=== PATIENT | male | born 1960 | race Caucasian/White ===

== ENCOUNTER 2016-12-14 16:11 | Inpatient (IN) | payer MEDICAID ==
[~2016-12-14] VITALS: Ht 172.7 cm; Wt 95.0 kg
[~2016-12-14 16:11] MED LIST: ABILIFY; ANTIDEPRESSANT; BUPROPION; CITALOPRAM; HYDROCODONE-APA1 TAB PO; NEURONTIN 300300 MG PO; OXYCODONE HCL5 MG PO; TRIGLIDE160 MG PO; VOLTAREN100 MG PO; [UNRECOGNIZED DRUG - OTHER]
[2016-12-14 17:20] LABS: BASOPHILS 0.2 % (0-2); EOSINOPHILS 4.1 % (0-7); HEMOGLOBIN 13.9 g/dL (13.5-17.5); IMMATURE GRANULOCYTES 0.4 % (0-5); LYMPHOCYTES 25.3 % (15-50); MCH 29.7 pg (26.0-34.0); MCHC 33.1 g/dL (31.0-37.0); MCV 89.7 fL (80.0-100.0); MONOCYTES 6.2 % (2-11); NEUTROPHILS 63.8 % (40-80); RBC 4.68 10x6/uL (4.20-6.10); WBC 4.8 10x3/uL (4.8-10.8)
[2016-12-14 17:22] LABS: PLATELET COUNT 295 10x3/uL (130-400)
[2016-12-14 17:44] LABS: ALBUMIN 3.8 g/dL (3.4-5.0); ANION GAP 12.1 mmol/L (8-16); BILIRUBIN - TOTAL 0.24 mg/dL (0.2-1.3); CALCIUM 9.1 mg/dL (8.5-10.1); CARBON DIOXIDE 27.9 mmol/L (21.0-32.0); CREATININE - SERUM 1.3 mg/dL (0.6-1.3); PROTEIN - SERUM 7.7 g/dL (6.4-8.2)
[2016-12-14 19:40] LABS: APTT 28.6 SECONDS (22.8-39.4); INR 1.01 (0.85-1.17); PROTIME 13.1 SECONDS (11.6-15.0)
[2016-12-14 22:02] LABS: APPEARANCE CLEAR (CLEAR); BILIRUBIN NEGATIVE (NEGATIVE); COLOR YELLOW (YELLOW); GLUCOSE NEGATIVE (NEGATIVE); KETONE NEGATIVE (NEGATIVE); LEUKOCYTE ESTERASE NEGATIVE (NEGATIVE); NITRITE NEGATIVE (NEGATIVE); PROTEIN NEGATIVE (NEGATIVE); UROBILINOGEN NORMAL (NORMAL)
--- NOTE | 2016-12-14 23:20 | NUR ---
REC'D TO ROOM 2306 FROM ER VIA STRETCHER. SEE ADMISSION HISTORY AND ASSESSMENT. PT TRANSFERRED SELF TO BED. L FOREHEAD WITH SWELLING AND OLD BLOOD NOTED, L ELBOW SWELLING AND OLD BLOOD. NEURO WNL. HUGO CATH PATENT AND DRAINING CLEAR, YELLOW URINE. ALARMS ON AND C/L IN REACH.
[2016-12-14 23:30] VITALS: BP 122/84
[2016-12-14 23:45] VITALS: BP 122/84; Ht 172.7 cm; Wt 95.0 kg
--- NOTE | 2016-12-14 23:48 | NUR ---
ADMIN PRN MORPHINE. GIVEN SPRITE PER REQUEST. VSS. NEURO WNL. C/L IN REACH.
[2016-12-15] VITALS (9 sets, daily range): BP systolic 106–127; BP diastolic 70–84
--- NOTE | 2016-12-15 00:15 | NUR ---
PT WITH EYES CLOSED, AWAKENS EASILY. REPORTS ADEQUATE PAIN RELIEF. VSS. NO SIGN OF DISTRESS.
--- NOTE | 2016-12-15 02:25 | NUR ---
PT RESTING QUIETLY, NO CHANGE IN NEURO. COOPERATIVE, DENIES NEEDS.
--- NOTE | 2016-12-15 06:00 | NUR ---
L ELBOW PUNCTURE SITE, CLEANSED WITH NS, NON-ADHERENT GUAZE AND KERLEX DSG APPLIED. 3CM ROUND ABRASION TO BACK OF HEAD CLEANED. FOREHEAD LAC CLEANSED WITH NS. PT DENIES NEEDS. GIVEN COFFE PER REQUEST. C/L IN REACH.
--- NOTE | 2016-12-15 07:00 | NUR ---
ASSESSMENT PER FLOWSHEET.
--- NOTE | 2016-12-15 08:45 | NUR ---
DR QUILES HERE OK FOR DISCHARGE.
[2016-12-15] MEDS ORDERED: PERCOCET 10/3251 TA1 PO (09:11)
--- NOTE | 2016-12-15 10:00 | NUR ---
IV DCD WITH CATH INTACT. DC INSTRUCTION GIVEN. FOLLOW UP WITH DR QULIES December AT 10 AM ON THAT DAY OFFICE WILL MAKE APPT FOR CT OF HEAD. RX FOR PERCOCET GIVEN. LEFT WITH VIA PRIVATE AUTO.
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
== END 2016-12-15 13:02 | disposition home or self-care (01) | DRG 87 ==
LOC: D.ER 16:11 → D.ICU 21:16
PROVIDERS: Emergency Medicine; Physician Assistant Medical; ADMIT Family Medicine
PROC: 0T9B70Z Drainage of Bladder with Drainage Device, Via Natural or Artificial Opening (ICD-10-PCS; principal; 2016-12-14)
DX: S06.5X0A Traumatic subdural hemorrhage without loss of consciousness, initial encounter (principal); V29.3XXA Motorcycle rider (driver) (passenger) injured in unspecified nontraffic accident, initial encounter; S02.82XA Fracture of other specified skull and facial bones, left side, initial encounter for closed fracture; S02.40FA Zygomatic fracture, left side, initial encounter for closed fracture; F41.9 Anxiety disorder, unspecified; F32.9 Major depressive disorder, single episode, unspecified; B19.20 Unspecified viral hepatitis C without hepatic coma

== ENCOUNTER 2019-08-21 20:49 | Inpatient (IN) | payer MEDICARE ==
[~2019-08-21] VITALS: Ht 172.7 cm; Wt 84.5 kg
--- NOTE | 2019-08-21 20:30 | NUR ---
SUPINE IN BED, ALERT, BUT CONFUSED-PLEASANTLY. ORIENTED TO SELF AND KNOWS SHE'S AT THE HOSPITAL AND HAS FALLEN A LOT RECENTLY. DENIES PAIN/DISCOMFORT. MULTIPLE BRUISES ON ARMS, LEGS, AND LARGE DARKENED BRUISE TO RIGHT EAR. BLOOD PRESSURE IS ELEVATED. JOSE MANUEL PAGED, WILL MONITOR CLOSELY.
[~2019-08-21 20:49] MED LIST changes: +PERCOCET 10/3251 TA1 PO
[2019-08-21 21:20] VITALS: BP 128/89
[2019-08-21 21:50] LABS: APTT 33.5 SECONDS (22.8-39.4); INR 1.09 (0.85-1.17); PROTIME 13.6 SECONDS (11.6-15.0)
[2019-08-21 21:53] LABS: BASOPHILS 0.1 % (0-2); EOSINOPHILS 1.7 % (0-7); HEMOGLOBIN 15.7 g/dL (13.5-17.5); IMMATURE GRANULOCYTES 0.1 % (0-5); LYMPHOCYTES 14.2 % (15-50); MCH 29.9 pg (26.0-34.0); MCHC 34.1 g/dL (31.0-37.0); MCV 87.6 fL (80.0-100.0); MEAN PLATELET VOLUME 10.4 fL (7.4-10.4); MONOCYTES 7.8 % (2-11); NEUTROPHILS 76.1 % (40-80); PLATELET COUNT 329 10x3/uL (130-400); RBC 5.25 10x6/uL (4.20-6.10); RDW 12.9 % (11.5-14.5); WBC 7.8 10x3/uL (4.8-10.8)
[2019-08-21] MEDS ORDERED: ELAVIL75 MG PO (21:55)
[2019-08-21] MEDS ORDERED: ABILIFY10 MG PO (21:55)
[2019-08-21] MEDS ORDERED: PEPCID AC20 MG PO (21:56)
[2019-08-21] MEDS ORDERED: MOBIC7.5 MG PO (21:57)
[2019-08-21] MEDS ORDERED: NEURONTIN600 MG PO (21:57)
[2019-08-21] MEDS ORDERED: TRAZODONE HCL150 MG PO (21:58)
[2019-08-21] MEDS ORDERED: CYCLOBENZAPRINE10 MG PO (21:59)
[2019-08-21] MEDS ORDERED: BUPROPION HCL100 MG PO (21:59)
[2019-08-21 22:00] LABS: CALC OSMOLALITY 272 mosm/kg (275-300); CARBON DIOXIDE 26.4 mmol/L (21.0-32.0); CHLORIDE - SERUM 98 mmol/L (98-107); CREATININE - SERUM 1.1 mg/dL (0.6-1.3); GLUCOSE 104 mg/dL (74-106); SODIUM 136 mmol/L (136-145); UREA NITROGEN 15 mg/dL (7-18); eGFR NON AFRICAN AMERICAN 72 mL/min (90-120)
[2019-08-21] MEDS ORDERED: HYDROCODON-ACE1 EA10 PO (22:00)
[2019-08-21 22:30] VITALS: BP 135/84
[2019-08-21 22:30] LABS: ALKALINE PHOSPHATASE 67 U/L (46-116); ALT (SGPT) 38 U/L (10-68); BILIRUBIN - TOTAL 0.71 mg/dL (0.2-1.3); CKMB 0.3 U/L (0.0-3.6); CREATINE KINASE 57 UL (21-232); PRO BNP 33 pg/mL (0-125); PROTEIN - SERUM 8.8 g/dL (6.4-8.2); TROPONIN-I < 0.017 ng/mL (0.000-0.060)
[2019-08-21 22:31] LABS: LIPASE 4279 U/L (73-393)
[2019-08-21 23:43] VITALS: BP 120/66
[2019-08-22] VITALS (7 sets, daily range): BP systolic 105–153; BP diastolic 60–92; BMI 30.4
--- NOTE | 2019-08-22 01:15 | NUR ---
A&O X 4, AMBULATORY AD PARAMJIT. REPORTS PAIN IS BEGINNING TO INCREASE, BUT STATES HE IS MUCH BETTER THAN HE WAS EARLIER TONIGHT. TOLERATING JELLO AND BROTH, NO N/V. DENIES NEEDS AT THIS TIME, WILL CONTINUE TO MONITOR.
--- NOTE | 2019-08-22 08:00 | NUR ---
PATIENT ASLEEP ON RIGHT SIDE. CL IN REACH. NO NEEDS AT THIS TIME. WCTM
[2019-08-22 09:12] LABS: BASOPHILS 0.3 % (0-2); EOSINOPHILS 2.5 % (0-7); HEMATOCRIT 42.8 % (42.0-54.0); HEMOGLOBIN 14.8 g/dL (13.5-17.5); IMMATURE GRANULOCYTES 0.3 % (0-5); LYMPHOCYTES 10.8 % (15-50); MCH 30.3 pg (26.0-34.0); MCHC 34.6 g/dL (31.0-37.0); MCV 87.7 fL (80.0-100.0); MEAN PLATELET VOLUME 10.5 fL (7.4-10.4); MONOCYTES 9.5 % (2-11); NEUTROPHILS 76.6 % (40-80); PLATELET COUNT 297 10x3/uL (130-400); RBC 4.88 10x6/uL (4.20-6.10); WBC 7.5 10x3/uL (4.8-10.8)
[2019-08-22 09:26] LABS: ALBUMIN 3.2 g/dL (3.4-5.0); ALKALINE PHOSPHATASE 68 U/L (46-116); BILIRUBIN - TOTAL 0.65 mg/dL (0.2-1.3); CALC OSMOLALITY 275 mosm/kg (275-300); CALCIUM 9.1 mg/dL (8.5-10.1); CARBON DIOXIDE 24.6 mmol/L (21.0-32.0); CHLORIDE - SERUM 100 mmol/L (98-107); CREATININE - SERUM 0.9 mg/dL (0.6-1.3); GLUCOSE 108 mg/dL (74-106); POTASSIUM - SERUM 3.9 mmol/L (3.5-5.1); PROTEIN - SERUM 7.8 g/dL (6.4-8.2); SODIUM 137 mmol/L (136-145); UREA NITROGEN 15 mg/dL (7-18); eGFR NON AFRICAN AMERICAN > 90 mL/min (90-120)
[2019-08-22 09:48] LABS: ALT (SGPT) 51 U/L (10-68); LIPASE 4736 U/L (73-393)
[2019-08-22 09:54] LABS: AMYLASE - SERUM 309 U/L (25-115)
[2019-08-22 12:15] LABS: CHOL - HDL RATIO 3.3 ratio (2.3-4.9); LDL-HDL RATIO 1.9 ratio (1.5-3.5)
--- NOTE | 2019-08-22 15:33 | NUR ---
DEMI SAUCEDA [phone] SISTER. RN WOULD LIKE US TO CALL YOU IF WE SCHEDULE ANY TESTS AND WHEN SO SHE CAN BE AROUND.
[2019-08-23] VITALS (7 sets, daily range): BP systolic 117–137; BP diastolic 67–87; Ht 172.7 cm; Wt 84.5 kg
[2019-08-23 05:01] LABS: BASOPHILS 0.2 % (0-2); EOSINOPHILS 2.9 % (0-7); HEMATOCRIT 42.2 % (42.0-54.0); HEMOGLOBIN 14.5 g/dL (13.5-17.5); IMMATURE GRANULOCYTES 0.2 % (0-5); LYMPHOCYTES 14.3 % (15-50); MCH 30.1 pg (26.0-34.0); MCHC 34.4 g/dL (31.0-37.0); MCV 87.7 fL (80.0-100.0); MEAN PLATELET VOLUME 10.7 fL (7.4-10.4); MONOCYTES 8.5 % (2-11); NEUTROPHILS 73.9 % (40-80); PLATELET COUNT 309 10x3/uL (130-400); RBC 4.81 10x6/uL (4.20-6.10); RDW 12.8 % (11.5-14.5); WBC 6.5 10x3/uL (4.8-10.8)
[2019-08-23 05:20] LABS: CALC OSMOLALITY 274 mosm/kg (275-300); CALCIUM 9.1 mg/dL (8.5-10.1); CARBON DIOXIDE 25.6 mmol/L (21.0-32.0); CHLORIDE - SERUM 100 mmol/L (98-107); GLUCOSE 99 mg/dL (74-106); MAGNESIUM - SERUM 1.9 mg/dL (1.8-2.4); PHOSPHOROUS 3.1 mg/dL (2.5-4.9); POTASSIUM - SERUM 3.8 mmol/L (3.5-5.1); SODIUM 137 mmol/L (136-145); UREA NITROGEN 15 mg/dL (7-18); eGFR NON AFRICAN AMERICAN 81 mL/min (90-120)
--- NOTE | 2019-08-23 07:44 | NUR ---
AWAKE AND ALERT. ORIENTED X3. NO C/O AT THIS TIME. LUNGS ARE CLEAR BILATERALLY, NO COUGH NOTED. SKIN IS INTACT WITHOUT REDNESS. IV TO RIGHT AC IS PATENT WTIHOUT REDNESS AT INSERTION SITE. DENIES NEEDS.
--- NOTE | 2019-08-23 09:20 | NUR ---
REQUESTED AND GIVEN ONE HYDROCODONE PO FOR C/O UPPER ABDOMINAL PAIN LEVEL 8. WILL MONITOR.
[2019-08-23 10:53] LABS: APPEARANCE CLEAR (CLEAR); BILIRUBIN NEGATIVE (NEGATIVE); COLOR YELLOW (YELLOW); GLUCOSE NEGATIVE (NEGATIVE); KETONE NEGATIVE (NEGATIVE); NITRITE NEGATIVE (NEGATIVE); PROTEIN NEGATIVE (NEGATIVE)
[2019-08-23 11:21] LABS: UDS - AMPHET NEGATIVE QUAL (NEGATIVE); UDS - BARB NEGATIVE QUAL (NEGATIVE); UDS - BENZO NEGATIVE QUAL (NEGATIVE); UDS - COCAINE NEGATIVE QUAL (NEGATIVE); UDS - OPIATE POSITIVE QUAL (NEGATIVE); UDS - PCP NEGATIVE QUAL (NEGATIVE); UDS - THC POSITIVE QUAL (NEGATIVE)
--- NOTE | 2019-08-23 16:04 | NUR ---
IV TO RIGHT AC LEAKING. D/C WITH CATHETER INTACT. RESITED TO LEFT AC AFTER 2 ATTEMPTS WITH 20 GA. TOLERATED WELL. DENIES NEEDS.
--- NOTE | 2019-08-23 16:23 | NUR ---
REQUESTED AND GIVNE ONE HYDROCODONE PO FOR C/O UPPER ABDOMINAL PAIN LEVEL 8. WILL MONITOR.
--- NOTE | 2019-08-23 18:18 | NUR ---
ATE MOST OF SUPPER. DENIES NEEDS. NO CHANGES NOTED.
[2019-08-24] VITALS (9 sets, daily range): BP systolic 104–120; BP diastolic 60–75
--- NOTE | 2019-08-24 03:02 | NUR ---
ALERT AND ORIENTED ABLE TO VOICE NEEDS AND WANTS TO STAFF. ON ROOM AIR. IV TO LEFT AC. WITH NS AT 100 ML/HR. NPO AT MIDNIGHT FOR COMPUTED TOMOGRAPHY GUIDED LIVER BIOPSY IN AM. RESTING IN BED WITH NO NEEDS ,
[2019-08-24 06:19] LABS: BASOPHILS 0.2 % (0-2); EOSINOPHILS 3.8 % (0-7); HEMATOCRIT 38.3 % (42.0-54.0); HEMOGLOBIN 13.1 g/dL (13.5-17.5); IMMATURE GRANULOCYTES 0.2 % (0-5); LYMPHOCYTES 16.1 % (15-50); MCH 29.6 pg (26.0-34.0); MCHC 34.2 g/dL (31.0-37.0); MCV 86.5 fL (80.0-100.0); MEAN PLATELET VOLUME 10.6 fL (7.4-10.4); MONOCYTES 7.5 % (2-11); NEUTROPHILS 72.2 % (40-80); PLATELET COUNT 273 10x3/uL (130-400); RBC 4.43 10x6/uL (4.20-6.10); RDW 12.6 % (11.5-14.5); WBC 5.6 10x3/uL (4.8-10.8)
[2019-08-24 06:36] LABS: APTT 37.5 SECONDS (22.8-39.4); INR 1.2 (0.85-1.17); PROTIME 14.7 SECONDS (11.6-15.0)
[2019-08-24 07:19] LABS: CALC OSMOLALITY 270 mosm/kg (275-300); CALCIUM 8.6 mg/dL (8.5-10.1); CARBON DIOXIDE 23.1 mmol/L (21.0-32.0); CHLORIDE - SERUM 101 mmol/L (98-107); CREATININE - SERUM 0.8 mg/dL (0.6-1.3); GLUCOSE 101 mg/dL (74-106); MAGNESIUM - SERUM 1.7 mg/dL (1.8-2.4); PHOSPHOROUS 2.8 mg/dL (2.5-4.9); POTASSIUM - SERUM 3.7 mmol/L (3.5-5.1); SODIUM 136 mmol/L (136-145); eGFR NON AFRICAN AMERICAN > 90 mL/min (90-120)
[2019-08-24 07:24] LABS: AMYLASE - SERUM 190 U/L (25-115); UREA NITROGEN 11 mg/dL (7-18)
--- NOTE | 2019-08-24 07:30 | NUR ---
AWAKE AND ALERT. ORIENTED X3. NO C/O AT THIS TIME. LUNGS ARE CLEAR BILATERALLLY,NO COUGH NOTED. SKIN IS INTACT WTIHOUT REDNESS. IV TO LEFT AC IS PATENT WITHOUT REDNESS. DENIES NEEDS.
[2019-08-24 07:34] LABS: LIPASE 2977 U/L (73-393)
--- NOTE | 2019-08-24 08:10 | NUR ---
OFF UNIT VIA BED FOR PROCEDURE.
--- NOTE | 2019-08-24 09:23 | NUR ---
RETURNED FROM PROCEDURE. A/O X3. NO C/O AT THIS TIME. DENIES NEEDS.
--- NOTE | 2019-08-24 18:32 | NUR ---
REFUSED CL DIET. GIVEN STRAWBERRY JELLO AND HE IS TRYING TO EAT SOME. DENIES NEEDS. NO CHANGES NOTED.
--- NOTE | 2019-08-24 20:02 | NUR ---
ALERT AND ORENTED X4 ABLE TO VOICE NEEDS AND WANTS TO STAFF. NO S/S OF DISTRESS. CALL LIGHT AND WATER IN REACH.
[2019-08-25 04:00] VITALS: BP 116/68
[2019-08-25 04:45] LABS: BASOPHILS 0.4 % (0-2); EOSINOPHILS 3.3 % (0-7); HEMATOCRIT 37.8 % (42.0-54.0); HEMOGLOBIN 13.3 g/dL (13.5-17.5); LYMPHOCYTES 14.9 % (15-50); MCH 30.2 pg (26.0-34.0); MCHC 35.2 g/dL (31.0-37.0); MCV 85.9 fL (80.0-100.0); MEAN PLATELET VOLUME 10.3 fL (7.4-10.4); MONOCYTES 8.4 % (2-11); PLATELET COUNT 298 10x3/uL (130-400); RDW 12.5 % (11.5-14.5); WBC 5.4 10x3/uL (4.8-10.8)
[2019-08-25 04:55] LABS: AMYLASE - SERUM 158 U/L (25-115); CALC OSMOLALITY 274 mosm/kg (275-300); CALCIUM 8.6 mg/dL (8.5-10.1); CARBON DIOXIDE 25.7 mmol/L (21.0-32.0); CHLORIDE - SERUM 102 mmol/L (98-107); CREATININE - SERUM 0.8 mg/dL (0.6-1.3); GLUCOSE 103 mg/dL (74-106); MAGNESIUM - SERUM 1.9 mg/dL (1.8-2.4); POTASSIUM - SERUM 3.7 mmol/L (3.5-5.1); SODIUM 138 mmol/L (136-145); UREA NITROGEN 9 mg/dL (7-18); eGFR NON AFRICAN AMERICAN > 90 mL/min (90-120)
[2019-08-25 05:16] LABS: LIPASE 2231 U/L (73-393)
--- NOTE | 2019-08-25 08:40 | NUR ---
RESTING IN BED, NO DISTESS NOTED, ALERT AND O, DRESSING INTACT TO RIGHT SIDE, IV INFUSING, CONT TO MONITOR
[2019-08-25 08:49] VITALS: BP 113/75
--- NOTE | 2019-08-25 09:05 | NUR ---
NUTRITION F/U PT REMAINS ON CLEAR LIQUID DIET. PT MAY BENEFIT FROM PROCALAMINE PPN IF UNABLE TO ADVANCE DIET IN 24 [address] FOLLOWING
[2019-08-25 12:49] VITALS: BP 121/73
[2019-08-25 14:09] LABS: ALPHA FETOPROTEIN -(TUMOR MRK) 1.6 ng/mL (0.0-8.3); CEA 5.4 ng/mL (0.0-4.7)
--- NOTE | 2019-08-25 14:27 | MORECARE ---
CASE MANAGEMENT DISCHARGE SUMMARY PATIENT: ANNETTE RON UNIT: [id number] ADM DATE: 08/21/19 AGE: 59 : 56 SEX: M ROOM/BED: D.2204 AUTHOR: CRISTOFERDOC PHYSICIAN: REFERRING PHYSICIAN: ARSALAN BIRMINGHAM MD DATE OF SERVICE: 08/25/19 Discharge Plan Patient Name: ANNETTE RON Facility: [facility]:[place] : 1960 Planned Disposition: Home Anticipated Discharge Date: Discharge Date: Expected LOS: Initial Reviewer: [email or web address] Initial Review Date: 08/25/2019 Generated: 08/25/19 3:26 pm Comments DCP- Discharge Planning Updated by [email or web address]: Cintia Woodruff on 08/25/19 1:[address] Patient Name: ANNETTE RON Admission Status: ER Accout number: [id number] Admission Date: 08-21-2019 : 1960 Admission Diagnosis: Attending: ARSALAN BIRMINGHAM Current LOS: 4 Anticipated DC Date: Planned Disposition: Home Primary Insurance: [facility] [employer] SOLUTIONS Discharge Planning Comments: CM met with patient to complete initial dc planning assessment. CM educated patient on the CM role and verbal consent given by patient to complete assessment. Patient lives at home with his and grown child. At discharge patient plans to return and feels this is a safe discharge. CM discussed availability of home health, rehab services, and medical equipment. Patient denied known discharge needs at this time. CM will continue to follow and will assist as needed with dc plans/needs. Termite Control Service Representative: Cintia Woodruff DCPIA - Discharge Planning Initial Assessment Updated by [email or web address]: Cintia Woodruff on 08/25/19 2:24 pm * Is the patient Alert and Oriented? Yes * How many steps to enter\exit or inside your home? 5/0 * PCP Dr. Vazquez * Pharmacy [facility] * Preadmission Environment Home with Family * ADLs Independent * Equipment Cane * List name and contact numbers for known caregivers / representatives who currently or will assist patient after discharge: Carola Ron - - [phone] * Verbal permission to speak to the caregivers and representatives has been obtained from the patient. Yes * Community resources currently utilized None * Additional services required to return to the preadmission environment? No * Can the patient safely return to the preadmission environment? Yes * Has this patient been hospitalized within the prior 30 days at any hospital? No Patient Name: ANNETTE RON Page [id number] at 1427 All edits/amendments must be made on the electronic document DICTATION DATE: 08/25/191425 A/C TECH: VALDEZ 08/25/191425 RPT#: [id number] DC DATE: STATUS: ADM IN [facility] [address] [place] [address] END OF REPORT
[2019-08-25 17:50] VITALS: BP 125/71
--- NOTE | 2019-08-25 18:23 | NUR ---
PT REMAINS ON CL LIQ DIET, STATES THAT HE DOESNT LIKE THE BROTH, PRACTITIONER AWARE, STOOL SOFTENER ORDERED TO START TONIGHT
[2019-08-25 20:00] VITALS: BP 107/86
--- NOTE | 2019-08-26 03:08 | NUR ---
I have reviewed this patient and I concur with the Shift Assessment completed by the Licensed Practical Nurse today this shift.
[2019-08-26 04:00] VITALS: BP 124/68
[2019-08-26 05:08] LABS: BASOPHILS 0.2 % (0-2); EOSINOPHILS 3.7 % (0-7); HEMATOCRIT 38.9 % (42.0-54.0); HEMOGLOBIN 13.3 g/dL (13.5-17.5); IMMATURE GRANULOCYTES 0.2 % (0-5); LYMPHOCYTES 15.3 % (15-50); MCH 29.6 pg (26.0-34.0); MCHC 34.2 g/dL (31.0-37.0); MCV 86.4 fL (80.0-100.0); MEAN PLATELET VOLUME 9.8 fL (7.4-10.4); MONOCYTES 9.2 % (2-11); NEUTROPHILS 71.4 % (40-80); PLATELET COUNT 321 10x3/uL (130-400); RDW 12.4 % (11.5-14.5); WBC 5.9 10x3/uL (4.8-10.8)
[2019-08-26 05:31] LABS: AMYLASE - SERUM 147 U/L (25-115); CALC OSMOLALITY 273 mosm/kg (275-300); CARBON DIOXIDE 25.5 mmol/L (21.0-32.0); CHLORIDE - SERUM 101 mmol/L (98-107); CREATININE - SERUM 0.8 mg/dL (0.6-1.3); GLUCOSE 119 mg/dL (74-106); PHOSPHOROUS 3.5 mg/dL (2.5-4.9); POTASSIUM - SERUM 3.7 mmol/L (3.5-5.1); SODIUM 137 mmol/L (136-145); UREA NITROGEN 11 mg/dL (7-18); eGFR NON AFRICAN AMERICAN > 90 mL/min (90-120)
[2019-08-26 05:32] LABS: LIPASE 2240 U/L (73-393)
[2019-08-26 10:12] VITALS: BP 124/72
--- NOTE | 2019-08-26 10:59 | NUR ---
RESTING IN BED, NO DISTRESS NOTED, PROCAL INFUSING AT 75, UP IN ROOM, TIRED OF CLEAR LIQ TRAY
[2019-08-26 13:40] VITALS: BP 133/89
[2019-08-26 16:45] VITALS: BP 107/83
[2019-08-26 20:00] VITALS: BP 122/82
[2019-08-26 23:30] VITALS: BP 106/58
[2019-08-27 04:00] VITALS: BP 118/78
[2019-08-27 05:24] LABS: BASOPHILS 0.4 % (0-2); EOSINOPHILS 5.3 % (0-7); HEMATOCRIT 40.3 % (42.0-54.0); HEMOGLOBIN 13.8 g/dL (13.5-17.5); IMMATURE GRANULOCYTES 0.2 % (0-5); LYMPHOCYTES 12.8 % (15-50); MCH 29.6 pg (26.0-34.0); MCHC 34.2 g/dL (31.0-37.0); MCV 86.3 fL (80.0-100.0); MEAN PLATELET VOLUME 10.2 fL (7.4-10.4); MONOCYTES 7.3 % (2-11); PLATELET COUNT 318 10x3/uL (130-400); RBC 4.67 10x6/uL (4.20-6.10); RDW 12.5 % (11.5-14.5); WBC 5.5 10x3/uL (4.8-10.8)
[2019-08-27 05:44] LABS: AMYLASE - SERUM 150 U/L (25-115); CALC OSMOLALITY 271 mosm/kg (275-300); CALCIUM 9.2 mg/dL (8.5-10.1); CARBON DIOXIDE 22.7 mmol/L (21.0-32.0); CHLORIDE - SERUM 100 mmol/L (98-107); CREATININE - SERUM 0.8 mg/dL (0.6-1.3); GLUCOSE 164 mg/dL (74-106); MAGNESIUM - SERUM 1.9 mg/dL (1.8-2.4); PHOSPHOROUS 3.7 mg/dL (2.5-4.9); POTASSIUM - SERUM 3.5 mmol/L (3.5-5.1); SODIUM 134 mmol/L (136-145); UREA NITROGEN 13 mg/dL (7-18); eGFR NON AFRICAN AMERICAN > 90 mL/min (90-120)
[2019-08-27 05:47] LABS: LIPASE 2548 U/L (73-393)
[2019-08-27 09:37] VITALS: BP 132/82
--- NOTE | 2019-08-27 10:38 | NUR ---
RESTING IN BED, NO DISTRESS NOTED, C/O ABD PAIN, PROCAL AND ZOFRAN INFUSING, CONT TO MONITOR NAUSEA AND PAIN
[2019-08-27 12:05] VITALS: BP 113/85
[2019-08-27 15:58] VITALS: BP 129/87
--- NOTE | 2019-08-27 16:04 | NUR ---
NO RESULTS FROM MIRALAX AND COLACE DAILY, SUPP GIVEN BY PT, CONT TO MONITOR
--- NOTE | 2019-08-27 20:15 | NUR ---
AWAKE,ALERT.ORIENTED X 2. SKIN WARM DRY. RESP EVEN AND UNALBORED. NO DISTRESS NOTED.IV INFUSING TO LAC WITHOUT REDNESS OR EDEMA NOTED. CL IN REACH. NO COMPLAITNS VOICED.
[2019-08-27 20:51] VITALS: BP 138/84
[2019-08-28] VITALS: BP 120/81
--- NOTE | 2019-08-28 01:43 | NUR ---
I have reviewed this patient and I concur with the Shift Assessment completed by the Licensed Practical Nurse today this shift.
[2019-08-28 05:08] VITALS: BP 115/76
[2019-08-28 05:22] LABS: BASOPHILS 0.4 % (0-2); EOSINOPHILS 4.6 % (0-7); HEMATOCRIT 40.8 % (42.0-54.0); IMMATURE GRANULOCYTES 0.2 % (0-5); LYMPHOCYTES 15.4 % (15-50); MCH 29.7 pg (26.0-34.0); MCHC 34.3 g/dL (31.0-37.0); MCV 86.4 fL (80.0-100.0); MEAN PLATELET VOLUME 10.5 fL (7.4-10.4); MONOCYTES 7.8 % (2-11); NEUTROPHILS 71.6 % (40-80); PLATELET COUNT 339 10x3/uL (130-400); RBC 4.72 10x6/uL (4.20-6.10); RDW 12.5 % (11.5-14.5); WBC 5.7 10x3/uL (4.8-10.8)
[2019-08-28 05:52] LABS: ALBUMIN 2.9 g/dL (3.4-5.0); ALKALINE PHOSPHATASE 131 U/L (46-116); ALT (SGPT) 66 U/L (10-68); AMYLASE - SERUM 150 U/L (25-115); BILIRUBIN - TOTAL 0.45 mg/dL (0.2-1.3); CALC OSMOLALITY 271 mosm/kg (275-300); CALCIUM 9.2 mg/dL (8.5-10.1); CARBON DIOXIDE 25.6 mmol/L (21.0-32.0); CHLORIDE - SERUM 99 mmol/L (98-107); CREATININE - SERUM 0.8 mg/dL (0.6-1.3); GLUCOSE 118 mg/dL (74-106); POTASSIUM - SERUM 3.6 mmol/L (3.5-5.1); PROTEIN - SERUM 7.8 g/dL (6.4-8.2); SODIUM 135 mmol/L (136-145); UREA NITROGEN 16 mg/dL (7-18); eGFR NON AFRICAN AMERICAN > 90 mL/min (90-120)
[2019-08-28 06:27] LABS: LIPASE 2741 U/L (73-393)
[2019-08-28 08:23] VITALS: BP 130/83
--- NOTE | 2019-08-28 08:40 | NUR ---
PT SITTING UP IN BED PENDING PANCREATIC BIOPSY, TOLD PT I STILL HAVE NOT SEEN ANY ORDERS YET. PT STATES HE HAS BEEN NPO SINCE MIDNIGHT AND OK BEING SO UNTIL TESTS ARE DONE. ALL QUESTIONS ANSWERED NO NEEDS VOICED BY PT CONTINUE WITH PLAN OF CARE. WILL ADMINISTER SCHEDULE MEDS THAT PT HAS TO HAVE THIS MORNING.
--- NOTE | 2019-08-28 09:27 | NUR ---
I have reviewed this patient and I concur with the Shift Assessment completed by the Licensed Practical Nurse today this shift.
[2019-08-28 12:29] VITALS: BP 118/79
--- NOTE | 2019-08-28 12:55 | NUR ---
Nutrition follow-up: Clear liquids only; lipase trending up Pain with clears Labs reviewed Wt: 199# ProcalAmine PPN @ 75 ml/hr RDN following.
[2019-08-28 13:09] LABS: INR 1.44 (0.85-1.17)
[2019-08-28 13:10] LABS: APTT 41.4 SECONDS (22.8-39.4)
--- NOTE | 2019-08-28 13:27 | NUR ---
WEIGHED PT PER CM REQUEST AND DOCUMENTED IN DAILY WEIGHT, PT IS SITTING IN BED EATING LUNCH STATED TIRED OF THE SAME FOOD BUT UNDERSTOOD GUT REST ABD PAIN IS STILL BETWEEN 6-9. NO NEEDS VOICED, CONTINUE WITH PLAN OF CARE
--- NOTE | 2019-08-28 15:43 | NUR ---
PT SITING UP IN BED STATES SAGASTUME IS BETTER AFTER TYLENOL. NO S/SX OF DISTRESS, CL IN REACH CONTINUE WITH PLAN OF CARE
[2019-08-28 17:08] VITALS: BP 119/81
--- NOTE | 2019-08-28 19:00 | NUR ---
BEDSIDE REPORT RECEIVED AND CARE OF PT ASSUMED. PT LYING IN SUPINE POSITION WITH EYES CLOSED AND EASY RESPIRATIONS. IV TO LEFT FA PATENT WITH PROCAL INFUSING AT 75 ML/HR, AND ZOFRAN INFUSING AT 4.7 ML/HR. WILL MONITOR FOR NEEDS.
--- NOTE | 2019-08-28 20:39 | NUR ---
HS MEDICATIONS GIVEN TO INCLUDE NORCO PER REQUEST FOR PAIN. WILL CONTINUE TO MONITOR FOR NEEDS.
[2019-08-29] VITALS (11 sets, daily range): BP systolic 105–127; BP diastolic 61–87
[2019-08-29 06:50] LABS: BASOPHILS 0.4 % (0-2); EOSINOPHILS 5.3 % (0-7); HEMATOCRIT 42.5 % (42.0-54.0); HEMOGLOBIN 14.5 g/dL (13.5-17.5); IMMATURE GRANULOCYTES 0.2 % (0-5); MCH 29.9 pg (26.0-34.0); MCHC 34.1 g/dL (31.0-37.0); MCV 87.6 fL (80.0-100.0); MEAN PLATELET VOLUME 10.7 fL (7.4-10.4); MONOCYTES 8.3 % (2-11); NEUTROPHILS 70.8 % (40-80); PLATELET COUNT 275 10x3/uL (130-400); RBC 4.85 10x6/uL (4.20-6.10); RDW 12.6 % (11.5-14.5); WBC 5.5 10x3/uL (4.8-10.8)
[2019-08-29 06:51] LABS: INR 1.33 (0.85-1.17)
[2019-08-29 06:58] LABS: APTT 24.6 SECONDS (22.8-39.4)
[2019-08-29 07:14] LABS: ALKALINE PHOSPHATASE 148 U/L (46-116); ALT (SGPT) 70 U/L (10-68); AMYLASE - SERUM 157 U/L (25-115); BILIRUBIN - TOTAL 0.39 mg/dL (0.2-1.3); CALC OSMOLALITY 273 mosm/kg (275-300); CALCIUM 9.5 mg/dL (8.5-10.1); CARBON DIOXIDE 22.6 mmol/L (21.0-32.0); CHLORIDE - SERUM 99 mmol/L (98-107); CREATININE - SERUM 0.8 mg/dL (0.6-1.3); GLUCOSE 112 mg/dL (74-106); SODIUM 136 mmol/L (136-145); UREA NITROGEN 16 mg/dL (7-18); eGFR NON AFRICAN AMERICAN > 90 mL/min (90-120)
[2019-08-29 07:24] LABS: ALBUMIN 3.1 g/dL (3.4-5.0); POTASSIUM - SERUM 4.2 mmol/L (3.5-5.1)
--- NOTE | 2019-08-29 07:28 | NUR ---
PT SITTING UP IN CHAIR AT BEDSIDE, STATED READY FOR BIOPSY, HAD PT SIGN CONSENTS. PT HAS BEEN NPO ALL NIGHT. C/O DISCOMFORT IN ABDOMEN, PT JUST GIVEN PRN PAIN MEDICATION NOT TOO LONG AGO. NO NEEDS VOICED, ASSUME PT CARE
[2019-08-29 07:45] LABS: LIPASE 2730 U/L (73-393)
--- NOTE | 2019-08-29 12:22 | NUR ---
I have reviewed this patient and I concur with the Shift Assessment completed by the Licensed Practical Nurse today this shift.
--- NOTE | 2019-08-29 13:35 | NUR ---
PT SITTING UP IN BED HAD RETURNED FROM LUNG BIOPSY, PT INQUIRED ON POSSIBLE DC OR REAL FOOD. ADVISED THAT WILL BE UP TO DRS, PT IV IN RT FA KEEPS BEEPING PT REQUESTED TO BE UNHOOKED FOR A BIT TO GIVE ARM A REST, NO OTHER NEEDS VOICED, CONTINUE WITH PLAN OF CARE
--- NOTE | 2019-08-30 00:24 | NUR ---
PATIENT ALERT AND ORENTED X 4 ABLE TO VOICE NEEDS AND WANTS TO STAFF. IV TO LEFT HAND WITH PAIN/ BRUNING.MULTABLE ATEMPTS TO RESITE WITH MULTABLE STAFF. WITH NO RESULT. LEFT HAND INTACT WITH FLUIDS RESTARTRED. ZOFRAN AT 4.7 AND PROCAL DECREASED TO 50 ML/HR THEN DECREASED TO 25ML/HR , WITH NO FUTHER COMPLANT OF PAIN /BRUNING.
[2019-08-30 04:00] VITALS: BP 108/63
--- NOTE | 2019-08-30 04:12 | NUR ---
Patient c/o pain at IV site. stoped infusion per requist, as we didd multable atempts to restart IV at start of shift. Offgoing nurse stated he was having trouble with site on 7a-7p.Staff was unable to restart IV. but lowered procal and this helped for a time. BUt patient started to have pain and requsted be stoped and rest again. Will pass on in report for posable vascular access consult .
[2019-08-30 05:56] LABS: BASOPHILS 0.2 % (0-2); EOSINOPHILS 4.2 % (0-7); HEMATOCRIT 41.5 % (42.0-54.0); HEMOGLOBIN 14.3 g/dL (13.5-17.5); IMMATURE GRANULOCYTES 0.2 % (0-5); LYMPHOCYTES 11.2 % (15-50); MCH 29.9 pg (26.0-34.0); MCHC 34.5 g/dL (31.0-37.0); MCV 86.6 fL (80.0-100.0); MEAN PLATELET VOLUME 10.8 fL (7.4-10.4); MONOCYTES 8.5 % (2-11); NEUTROPHILS 75.7 % (40-80); PLATELET COUNT 316 10x3/uL (130-400); RBC 4.79 10x6/uL (4.20-6.10); RDW 12.5 % (11.5-14.5); WBC 6.1 10x3/uL (4.8-10.8)
[2019-08-30 06:19] LABS: ALBUMIN 3.1 g/dL (3.4-5.0); ALKALINE PHOSPHATASE 167 U/L (46-116); ALT (SGPT) 79 U/L (10-68); AMYLASE - SERUM 161 U/L (25-115); BILIRUBIN - TOTAL 0.55 mg/dL (0.2-1.3); CALC OSMOLALITY 273 mosm/kg (275-300); CALCIUM 9.6 mg/dL (8.5-10.1); CARBON DIOXIDE 25.8 mmol/L (21.0-32.0); CHLORIDE - SERUM 99 mmol/L (98-107); CREATININE - SERUM 0.9 mg/dL (0.6-1.3); GLUCOSE 122 mg/dL (74-106); POTASSIUM - SERUM 4.1 mmol/L (3.5-5.1); PROTEIN - SERUM 8.1 g/dL (6.4-8.2); SODIUM 136 mmol/L (136-145); UREA NITROGEN 16 mg/dL (7-18); eGFR NON AFRICAN AMERICAN > 90 mL/min (90-120)
[2019-08-30 06:54] LABS: LIPASE 3112 U/L (73-393)
--- NOTE | 2019-08-30 07:49 | NUR ---
PT HAS HAD 5 IV'S IN LAST 2 DAYS. AFTER FLUIDS RUN FOR A WHILE PT IV STARTS TO BURN, HAVE TURNED PROCAL DOWN TO 25 AND IV IS STILL BURNING, SPOKE TO NURSE PEARL DIGGER IN REGARDS TO PT NEEDING IV ACCESS. TOLD TO PLACE ORDER FOR VASCULAR ACCESS NURSE. ADMINISTERED PRN PAIN MEDICATION PER PT REQUEST. ASSUME PT CARE
[2019-08-30 08:39] VITALS: BP 127/82
[2019-08-30 12:46] VITALS: BP 122/76
[2019-08-30 16:45] VITALS: BP 115/88
--- NOTE | 2019-08-30 19:24 | NUR ---
REPORT RECEIVED, WILL CONTINUE POC. PATIENT IS AAOX4, SITTING IN HIGH FOWLERS POSITION. PATIENT REQUESTS PIV TO LT HAND BE REMOVED DUE TO IT BEING INFILTRATED AND AWAITING VASCULAR ACCESS. NO S/S OF DISTRESS OBSERVED, RR EVEN AND UNLABORED ON ROOM AIR. PATIENT DENIES FURTHER NEEDS AT THIS TIME. CL IN REACH, BED LOCKED AND LOWERED. WILL CTM.
[2019-08-30 20:00] VITALS: BP 191/60
--- NOTE | 2019-08-31 02:52 | NUR ---
UNABLE TO ADMINISTER PROCALAMINE DUE TO IV OUT. VASCULAR ACCESS HAS BEEN CONSULTED.
--- NOTE | 2019-08-31 05:53 | NUR ---
I have reviewed this patient and I concur with the Shift Assessment completed by the Licensed Practical Nurse today this shift.
[2019-08-31 07:11] LABS: BASOPHILS 0.3 % (0-2); EOSINOPHILS 4.3 % (0-7); HEMATOCRIT 40.9 % (42.0-54.0); HEMOGLOBIN 14.3 g/dL (13.5-17.5); IMMATURE GRANULOCYTES 0.2 % (0-5); LYMPHOCYTES 14.5 % (15-50); MCH 30.1 pg (26.0-34.0); MCV 86.1 fL (80.0-100.0); MEAN PLATELET VOLUME 10.6 fL (7.4-10.4); MONOCYTES 8.3 % (2-11); NEUTROPHILS 72.4 % (40-80); PLATELET COUNT 324 10x3/uL (130-400); RBC 4.75 10x6/uL (4.20-6.10); RDW 12.5 % (11.5-14.5); WBC 5.8 10x3/uL (4.8-10.8)
[2019-08-31 07:23] LABS: ALBUMIN 3.1 g/dL (3.4-5.0); ALKALINE PHOSPHATASE 163 U/L (46-116); ALT (SGPT) 73 U/L (10-68); AMYLASE - SERUM 175 U/L (25-115); BILIRUBIN - TOTAL 0.54 mg/dL (0.2-1.3); CALC OSMOLALITY 273 mosm/kg (275-300); CALCIUM 9.7 mg/dL (8.5-10.1); CHLORIDE - SERUM 99 mmol/L (98-107); CREATININE - SERUM 0.8 mg/dL (0.6-1.3); GLUCOSE 125 mg/dL (74-106); POTASSIUM - SERUM 3.8 mmol/L (3.5-5.1); SODIUM 136 mmol/L (136-145); UREA NITROGEN 15 mg/dL (7-18); eGFR NON AFRICAN AMERICAN > 90 mL/min (90-120)
[2019-08-31 07:57] LABS: LIPASE 3659 U/L (73-393)
[2019-08-31 08:45] VITALS: BP 125/86
--- NOTE | 2019-08-31 10:05 | NUR ---
PT AND SPOUSE INQUIRING ON BONE SCAN AND MRI OF BRAIN, DR CROWELL WAS IN EARLY TO TALK TO PT BUT PT WAS IN MRI ADVISED THAT DR WILL BE BACK ABOUT LUNCH TIME, PT TO HAVE BONE SCAN ABOUT THAT TME. ALL QUESTIONS ANSWERED BEST POSSIBLE, NO OTHER NEEDS VOICED, CONTINUE WITH PLAN OF CARE
--- NOTE | 2019-08-31 10:45 | NUR ---
I have reviewed this patient and I concur with the Shift Assessment completed by the Licensed Practical Nurse today this shift.
[2019-08-31 12:46] VITALS: BP 131/83
[2019-08-31 17:23] VITALS: BP 122/80
--- NOTE | 2019-08-31 18:50 | NUR ---
PATIENT SITTIN ON BED WITH EYES OPEN AND FAMILY AT THE BEDSIDE. NO S/S OF DISTRESS. NO COMPLAINTS AT THIS TIME. PATIENT HAS IV L UPPER ARM IV MIDLINE PROCALAMINE @ 75 ML/HR. IV IS PATENT WITHOUT REDNESS, SWELLING, OR TEDNERNESS. PATIENTS ABDOMEN IS DISTENDED AND SWOLLEN ON R SIDE FROM LIVER BIOPSY. CALL LIGHT IN PLACE. WILL CONTINUE TO MONITOR.
[2019-09-01] VITALS: BP 117/66
--- NOTE | 2019-09-01 02:04 | NUR ---
I have reviewed this patient and I concur with the Shift Assessment completed by the Licensed Practical Nurse today this shift.
[2019-09-01 04:00] VITALS: BP 108/59
[2019-09-01 05:14] LABS: BASOPHILS 0.3 % (0-2); EOSINOPHILS 5.1 % (0-7); HEMATOCRIT 37.7 % (42.0-54.0); IMMATURE GRANULOCYTES 0.3 % (0-5); LYMPHOCYTES 17.8 % (15-50); MCH 29.6 pg (26.0-34.0); MCHC 34.5 g/dL (31.0-37.0); MCV 85.9 fL (80.0-100.0); MEAN PLATELET VOLUME 10.5 fL (7.4-10.4); MONOCYTES 10.8 % (2-11); NEUTROPHILS 65.7 % (40-80); PLATELET COUNT 328 10x3/uL (130-400); RBC 4.39 10x6/uL (4.20-6.10); RDW 12.4 % (11.5-14.5); WBC 5.7 10x3/uL (4.8-10.8)
[2019-09-01 05:40] LABS: ALBUMIN 2.8 g/dL (3.4-5.0); ALKALINE PHOSPHATASE 152 U/L (46-116); ALT (SGPT) 65 U/L (10-68); AMYLASE - SERUM 181 U/L (25-115); BILIRUBIN - TOTAL 0.35 mg/dL (0.2-1.3); CALC OSMOLALITY 276 mosm/kg (275-300); CARBON DIOXIDE 27.5 mmol/L (21.0-32.0); CHLORIDE - SERUM 100 mmol/L (98-107); CREATININE - SERUM 0.8 mg/dL (0.6-1.3); GLUCOSE 127 mg/dL (74-106); POTASSIUM - SERUM 3.6 mmol/L (3.5-5.1); PROTEIN - SERUM 7.4 g/dL (6.4-8.2); SODIUM 137 mmol/L (136-145); UREA NITROGEN 15 mg/dL (7-18); eGFR NON AFRICAN AMERICAN > 90 mL/min (90-120)
[2019-09-01 05:42] LABS: LIPASE 3419 U/L (73-393)
--- NOTE | 2019-09-01 07:00 | NUR ---
ALERT AND ORIENTED, RESTING IN BED. NO C/O PAIN. NO S/S OF ACUTE DISTRESS NOTED. ABDOMEN DISTENDED. IV TO LEFT FOREARM, PROCAL @ 75ML/HR. SITE PATENT WITHOUT REDNESS OR SWELLING. SCDS PRESENT. DENIES ANY NEEDS AT THIS TIME. CALL LIGHT IN REACH. WILL CONTINUE TO MONITOR.
[2019-09-01 09:32] VITALS: BP 123/85
--- NOTE | 2019-09-01 12:40 | NUR ---
I have reviewed this patient and I concur with the Shift Assessment completed by the Licensed Practical Nurse today this shift.
--- NOTE | 2019-09-01 13:45 | NUR ---
Nutrition follow-up: Pt continues with clear liquids due to continued nausea; distended abdomen ProcalAmine PPN @ 75 ml/hr labs reviewed ; Lipase continues elevated If diet unable to advance will need to start parenteral nutrition to better meet pts estimated nutritional needs. RDN following.
[2019-09-01 13:55] VITALS: BP 134/84
[2019-09-01 18:01] VITALS: BP 136/86
--- NOTE | 2019-09-01 18:40 | NUR ---
SITTING UP IN BED, WATCHING TV. FAMILY AT BEDSIDE. NO C/O PAIN. NO S/S OF ACUTE DISTRESS NOTED. DENIES ANY NEEDS AT THIS TIME. CALL LIGHT IN REACH. WILL CONTINUE TO MONITOR.
[2019-09-01 20:00] VITALS: BP 115/76
[2019-09-02] VITALS: BP 128/76
--- NOTE | 2019-09-02 02:10 | NUR ---
PATIENT COMPLAINING OF PAIN TO LEFT THUMB. QUESTIONS IF IT COULD BE FROM MIDLINE. IV WITH GOOD BLOOD RETURN NOTED. NO INCREASED PAIN WHEN IV FLUSHED. TYLENOL GIVEN FOR PAIN 8/10 TO LEFT THUMB. WILL CONTINUE TO MONITOR AND NOTE CHANGES.
--- NOTE | 2019-09-02 04:35 | NUR ---
I have reviewed this patient and I concur with the Shift Assessment completed by the Licensed Practical Nurse today this shift.
[2019-09-02 05:06] LABS: BASOPHILS 0.3 % (0-2); EOSINOPHILS 3.5 % (0-7); HEMATOCRIT 40.4 % (42.0-54.0); IMMATURE GRANULOCYTES 0.2 % (0-5); LYMPHOCYTES 10.4 % (15-50); MCHC 34.7 g/dL (31.0-37.0); MCV 86.5 fL (80.0-100.0); MEAN PLATELET VOLUME 10.3 fL (7.4-10.4); MONOCYTES 7.5 % (2-11); NEUTROPHILS 78.1 % (40-80); PLATELET COUNT 360 10x3/uL (130-400); RBC 4.67 10x6/uL (4.20-6.10); RDW 12.5 % (11.5-14.5); WBC 6.7 10x3/uL (4.8-10.8)
[2019-09-02 05:27] LABS: ALBUMIN 3.2 g/dL (3.4-5.0); ALKALINE PHOSPHATASE 175 U/L (46-116); ALT (SGPT) 75 U/L (10-68); AMYLASE - SERUM 184 U/L (25-115); CALC OSMOLALITY 275 mosm/kg (275-300); CALCIUM 9.8 mg/dL (8.5-10.1); CARBON DIOXIDE 30.5 mmol/L (21.0-32.0); CHLORIDE - SERUM 98 mmol/L (98-107); CREATININE - SERUM 0.9 mg/dL (0.6-1.3); GLUCOSE 128 mg/dL (74-106); POTASSIUM - SERUM 3.7 mmol/L (3.5-5.1); PROTEIN - SERUM 8.3 g/dL (6.4-8.2); SODIUM 137 mmol/L (136-145); UREA NITROGEN 13 mg/dL (7-18); eGFR NON AFRICAN AMERICAN > 90 mL/min (90-120)
[2019-09-02 05:33] LABS: LIPASE 3161 U/L (73-393)
--- NOTE | 2019-09-02 06:00 | NUR ---
PATIENT CONTINUES TO COMPLAIN OF DISCOMFORT TO LEFT THUMB. REQUEST IV TO BE RESTARTED. PERPHERIAL IV RESITED TO LFA PER REQUEST.
--- NOTE | 2019-09-02 06:30 | NUR ---
MIDLINE IV REMAINS INTACT OT AYESHA WITH GOOD BLOOD RETURN. CL IN REACH
--- NOTE | 2019-09-02 07:00 | NUR ---
ALERT AND ORIENTED, RESTING IN BED WITH EYES OPEN. NO C/O PAIN. NO S/S OF ACUTE DISTRESS NOTED. DENIES ANY NEEDS AT THIS TIME. CALL LIGHT IN REACH. WILL CONTINUE TO MONITOR.
[2019-09-02 07:50] VITALS: BP 114/67
[2019-09-02 13:24] VITALS: BP 134/85
[2019-09-02 16:43] VITALS: BP 116/78
[2019-09-02 19:30] VITALS: BP 131/83
--- NOTE | 2019-09-02 20:45 | NUR ---
RESTING QUIELTY WITH NO DISTRESS NOTED. IV INFUSING TO LFA WITHOUT REDNESS OR EDEMA NOTED. CL IN REACH. FAMILY AT BEDSIDE.
--- NOTE | 2019-09-03 02:09 | NUR ---
I have reviewed this patient and I concur with the Shift Assessment completed by the Licensed Practical Nurse today this shift.
[2019-09-03 04:57] LABS: BASOPHILS 0.3 % (0-2); EOSINOPHILS 3.1 % (0-7); HEMOGLOBIN 13.3 g/dL (13.5-17.5); IMMATURE GRANULOCYTES 0.5 % (0-5); LYMPHOCYTES 13.8 % (15-50); MCH 29.6 pg (26.0-34.0); MCHC 34.1 g/dL (31.0-37.0); MCV 86.7 fL (80.0-100.0); MEAN PLATELET VOLUME 10.2 fL (7.4-10.4); MONOCYTES 10.6 % (2-11); NEUTROPHILS 71.7 % (40-80); PLATELET COUNT 344 10x3/uL (130-400); RDW 12.5 % (11.5-14.5); WBC 6.2 10x3/uL (4.8-10.8)
[2019-09-03 05:11] VITALS: BP 93/51
[2019-09-03 05:12] LABS: ALBUMIN 2.8 g/dL (3.4-5.0); ALKALINE PHOSPHATASE 157 U/L (46-116); ALT (SGPT) 61 U/L (10-68); CALC OSMOLALITY 272 mosm/kg (275-300); CALCIUM 9.5 mg/dL (8.5-10.1); CARBON DIOXIDE 26.7 mmol/L (21.0-32.0); CHLORIDE - SERUM 100 mmol/L (98-107); CREATININE - SERUM 0.8 mg/dL (0.6-1.3); GLUCOSE 125 mg/dL (74-106); POTASSIUM - SERUM 3.7 mmol/L (3.5-5.1); PROTEIN - SERUM 7.7 g/dL (6.4-8.2); SODIUM 136 mmol/L (136-145); UREA NITROGEN 12 mg/dL (7-18); eGFR NON AFRICAN AMERICAN > 90 mL/min (90-120)
--- NOTE | 2019-09-03 07:10 | NUR ---
PT RESTING IN BED. NO SIGNS OF DISTRESS. IV TO LEFT FORARM PATENT NO REDNESS OR TENDERNESS. COMPLAINS OF ACHING TO THUMB WILL MONTIOR. DENIES ANY FURTHER NEED AT THIS TIME. CALL LIGHT IN REACH. BED LOW POSITION. FAMILY AT BEDSIDE.
[2019-09-03 07:53] VITALS: BP 121/71
[2019-09-03 10:08] LABS: AMYLASE - SERUM 142 U/L (25-115)
[2019-09-03 10:11] LABS: LIPASE 2379 U/L (73-393)
[2019-09-03 12:16] VITALS: BP 136/82
--- NOTE | 2019-09-03 15:12 | NUR ---
I have reviewed this patient and I concur with the Shift Assessment completed by the Licensed Practical Nurse today this shift.
[2019-09-03 17:04] VITALS: BP 157/73
[2019-09-03 19:30] VITALS: BP 113/72
--- NOTE | 2019-09-03 21:43 | NUR ---
PT C/O LEFT THUMB PAIN 04/01. GAVE MORPHINE 2 MG IV PUSH AND ELEVATED LEFT HAND ON PILLOW. GAVE SCHEDULED MEDS. COMPLETE ASSESSMENT PER FLOW-SHEET. NO OTHER NEEDS. WILL REASSESS AND CONTINUE TO MONITOR.
[2019-09-04 00:42] VITALS: BP 108/67
[2019-09-04 05:40] VITALS: BP 95/56
[2019-09-04 05:44] LABS: BASOPHILS 0.4 % (0-2); EOSINOPHILS 5.3 % (0-7); HEMATOCRIT 37.7 % (42.0-54.0); HEMOGLOBIN 12.7 g/dL (13.5-17.5); IMMATURE GRANULOCYTES 0.4 % (0-5); LYMPHOCYTES 15.4 % (15-50); MCH 29.3 pg (26.0-34.0); MCHC 33.7 g/dL (31.0-37.0); MCV 87.1 fL (80.0-100.0); MEAN PLATELET VOLUME 10.6 fL (7.4-10.4); MONOCYTES 8.5 % (2-11); PLATELET COUNT 316 10x3/uL (130-400); RBC 4.33 10x6/uL (4.20-6.10); RDW 12.6 % (11.5-14.5); WBC 5.3 10x3/uL (4.8-10.8)
[2019-09-04 06:44] LABS: ALBUMIN 2.6 g/dL (3.4-5.0); ALKALINE PHOSPHATASE 199 U/L (46-116); AMYLASE - SERUM 122 U/L (25-115); BILIRUBIN - TOTAL 0.51 mg/dL (0.2-1.3); CALC OSMOLALITY 276 mosm/kg (275-300); CALCIUM 9.1 mg/dL (8.5-10.1); CARBON DIOXIDE 27.8 mmol/L (21.0-32.0); CHLORIDE - SERUM 102 mmol/L (98-107); CREATININE - SERUM 0.7 mg/dL (0.6-1.3); GLUCOSE 126 mg/dL (74-106); PROTEIN - SERUM 7.3 g/dL (6.4-8.2); SODIUM 137 mmol/L (136-145); UREA NITROGEN 14 mg/dL (7-18); eGFR NON AFRICAN AMERICAN > 90 mL/min (90-120)
[2019-09-04 06:46] LABS: ALT (SGPT) 88 U/L (10-68)
[2019-09-04 06:57] LABS: LIPASE 2365 U/L (73-393)
--- NOTE | 2019-09-04 07:10 | NUR ---
PT RESTING IN BED. NO SIGNS OF DISTRESS. IV TO LEFT UPPER ARM MIDLINE PATENT NO REDNESS OR TENDERNESS. DENIES ANY FURTHER NEED AT THIS TIME. CALL LIGHT IN REACH. BED LOW POSITION. FAMILY AT BEDSIDE. AWAITING TO KNOW WHAT DAY PORT WILL BE PLACED.
[2019-09-04 09:03] VITALS: BP 119/84
[2019-09-04 12:45] VITALS: BP 128/84
--- NOTE | 2019-09-04 15:50 | NUR ---
I have reviewed this patient and I concur with the Shift Assessment completed by the Licensed Practical Nurse today this shift.
[2019-09-04 17:21] VITALS: BP 127/87
[2019-09-04 19:30] VITALS: BP 140/86
[2019-09-05 00:30] VITALS: BP 135/82
[2019-09-05 05:14] LABS: BASOPHILS 0.4 % (0-2); EOSINOPHILS 4.7 % (0-7); HEMATOCRIT 36.7 % (42.0-54.0); HEMOGLOBIN 12.3 g/dL (13.5-17.5); IMMATURE GRANULOCYTES 0.2 % (0-5); LYMPHOCYTES 16.3 % (15-50); MCH 29.2 pg (26.0-34.0); MCHC 33.5 g/dL (31.0-37.0); MCV 87.2 fL (80.0-100.0); MEAN PLATELET VOLUME 10.7 fL (7.4-10.4); MONOCYTES 7.2 % (2-11); NEUTROPHILS 71.2 % (40-80); PLATELET COUNT 327 10x3/uL (130-400); RBC 4.21 10x6/uL (4.20-6.10); RDW 12.7 % (11.5-14.5); WBC 5.3 10x3/uL (4.8-10.8)
[2019-09-05 05:30] VITALS: BP 104/60
[2019-09-05 05:35] LABS: ALBUMIN 2.5 g/dL (3.4-5.0); ALKALINE PHOSPHATASE 186 U/L (46-116); ALT (SGPT) 70 U/L (10-68); AMYLASE - SERUM 112 U/L (25-115); BILIRUBIN - TOTAL 0.34 mg/dL (0.2-1.3); CALC OSMOLALITY 274 mosm/kg (275-300); CALCIUM 8.6 mg/dL (8.5-10.1); CARBON DIOXIDE 29.4 mmol/L (21.0-32.0); CHLORIDE - SERUM 100 mmol/L (98-107); CREATININE - SERUM 0.8 mg/dL (0.6-1.3); GLUCOSE 138 mg/dL (74-106); POTASSIUM - SERUM 3.7 mmol/L (3.5-5.1); SODIUM 136 mmol/L (136-145); UREA NITROGEN 16 mg/dL (7-18); eGFR NON AFRICAN AMERICAN > 90 mL/min (90-120)
[2019-09-05 05:42] LABS: LIPASE 2358 U/L (73-393)
[2019-09-05 09:21] VITALS: BP 138/81
--- NOTE | 2019-09-05 13:33 | NUR ---
NUTRITION F/U FAMILY AT BEDSIDE. PT CONTINUES PROCALAMINE AT 75 CC/HR. TOLERAING BLAND GI DIET WITH 25 TO 50% INTAKE RECENT MEALS. WILL CONTINUE TO PROVIDE DIET, MONITOR PO INTAKE. RD FOLLOWING
[2019-09-05 17:18] VITALS: BP 135/86
--- NOTE | 2019-09-05 18:11 | NUR ---
PAIN BETTER WITH PAIN MEDS ORDERED. PT REQUESTING MED FOR CONSTIPATION. ORDERES RECIEVED PER JUANA PEREA APN AND INTITIATED.PT IS WITHOUT CHANGE.CONT PLAN OF CARE
--- NOTE | 2019-09-05 19:05 | NUR ---
PATIENT SITTING ON BED, AND OTHER FAMILY AT BEDSIDE. PATIENT SAYS HE THINKS HE MAY BE GOING HOME TOMORROW, BUT HE IS STILL IN A LOT OF PAIN. PATIENTS HAS MIDLINE CATHETER TO UPPER LEFT ARM, PRO-VERÓNICA @75. ROOM AIR. PATIENT STATES HE HAS NO NEEDS AT THIS TIME. BED RIALS X2. CALL LIGHT AND BEDSIDE TABLE WITHIN REACH.
[2019-09-05 19:30] VITALS: BP 111/74
[2019-09-06 00:30] VITALS: BP 120/64
[2019-09-06 05:30] VITALS: BP 101/62
[2019-09-06 05:57] LABS: BASOPHILS 0.7 % (0-2); EOSINOPHILS 5.1 % (0-7); HEMATOCRIT 37.1 % (42.0-54.0); HEMOGLOBIN 12.4 g/dL (13.5-17.5); LYMPHOCYTES 15.8 % (15-50); MCH 29.1 pg (26.0-34.0); MCHC 33.4 g/dL (31.0-37.0); MCV 87.1 fL (80.0-100.0); MEAN PLATELET VOLUME 10.8 fL (7.4-10.4); MONOCYTES 8.2 % (2-11); NEUTROPHILS 70.2 % (40-80); PLATELET COUNT 321 10x3/uL (130-400); RBC 4.26 10x6/uL (4.20-6.10); RDW 12.6 % (11.5-14.5); WBC 4.5 10x3/uL (4.8-10.8)
[2019-09-06 06:29] LABS: ALBUMIN 2.6 g/dL (3.4-5.0); ALKALINE PHOSPHATASE 240 U/L (46-116); ALT (SGPT) 85 U/L (10-68); AMYLASE - SERUM 97 U/L (25-115); BILIRUBIN - TOTAL 0.47 mg/dL (0.2-1.3); CALC OSMOLALITY 274 mosm/kg (275-300); CALCIUM 8.9 mg/dL (8.5-10.1); CARBON DIOXIDE 28.3 mmol/L (21.0-32.0); CHLORIDE - SERUM 102 mmol/L (98-107); CREATININE - SERUM 0.7 mg/dL (0.6-1.3); GLUCOSE 117 mg/dL (74-106); POTASSIUM - SERUM 3.7 mmol/L (3.5-5.1); PROTEIN - SERUM 7.2 g/dL (6.4-8.2); SODIUM 137 mmol/L (136-145); UREA NITROGEN 12 mg/dL (7-18); eGFR NON AFRICAN AMERICAN > 90 mL/min (90-120)
[2019-09-06 06:51] LABS: LIPASE 2191 U/L (73-393)
--- NOTE | 2019-09-06 08:15 | NUR ---
PT RESTING QUIETLY IN BED WITH FAMILY AT BEDSIDE. RESP EVEN AND UNLABORED. PT DENIES PAIN AT THIS TIME. IV TO LEFT UPPER ARM WITH PROCAL @ 75ML/HR INFUSING VIA PUMP. SITE WITHOUT REDNESS OR EDEMA. PT REPORTS NPO STATUS FOR UPCOMING PROCEDURE. DENIES FURTHER NEEDS AT THIS TIME. CL WITHIN REACH. ENCOURAGED TO CALL WITH NEEDS.
[2019-09-06 09:38] VITALS: BP 106/57
[2019-09-06 11:44] VITALS: BP 113/71
--- NOTE | 2019-09-06 11:44 | NUR ---
PT RETURNED FROM RECOVERY AWAKE ALERT AND ORIENTED. PORT TO LEFT CHEST ACCESSED. SITE WITHOUT REDNESS OR EDEMA. IV INTACT TO LEFT UPPER ARM. SITE WITHOUT REDNESS OR EDEMA.
[2019-09-06 17:15] VITALS: BP 119/78
[2019-09-06 20:00] VITALS: BP 143/83
--- NOTE | 2019-09-07 01:50 | NUR ---
RESTING IN BED RESPRATION EVEN AND UNLABORED CALL LIGHT IN REACH NO NEEDS AT THIS TIME.
[2019-09-07 04:00] VITALS: BP 114/78
[2019-09-07 05:04] LABS: BASOPHILS 0.2 % (0-2); EOSINOPHILS 2.3 % (0-7); HEMATOCRIT 35.5 % (42.0-54.0); HEMOGLOBIN 11.9 g/dL (13.5-17.5); IMMATURE GRANULOCYTES 0.2 % (0-5); LYMPHOCYTES 15.5 % (15-50); MCH 29.1 pg (26.0-34.0); MCHC 33.5 g/dL (31.0-37.0); MCV 86.8 fL (80.0-100.0); MEAN PLATELET VOLUME 10.6 fL (7.4-10.4); MONOCYTES 7.3 % (2-11); NEUTROPHILS 74.5 % (40-80); PLATELET COUNT 317 10x3/uL (130-400); RBC 4.09 10x6/uL (4.20-6.10); RDW 12.5 % (11.5-14.5)
[2019-09-07 05:11] LABS: WBC 6.2 10x3/uL (4.8-10.8)
[2019-09-07 05:25] LABS: ALBUMIN 2.5 g/dL (3.4-5.0); ALKALINE PHOSPHATASE 239 U/L (46-116); ALT (SGPT) 87 U/L (10-68); AMYLASE - SERUM 78 U/L (25-115); BILIRUBIN - TOTAL 0.32 mg/dL (0.2-1.3); CALC OSMOLALITY 276 mosm/kg (275-300); CALCIUM 8.5 mg/dL (8.5-10.1); CARBON DIOXIDE 27.9 mmol/L (21.0-32.0); CHLORIDE - SERUM 101 mmol/L (98-107); CREATININE - SERUM 0.8 mg/dL (0.6-1.3); POTASSIUM - SERUM 3.5 mmol/L (3.5-5.1); PROTEIN - SERUM 6.9 g/dL (6.4-8.2); SODIUM 136 mmol/L (136-145); UREA NITROGEN 13 mg/dL (7-18); eGFR NON AFRICAN AMERICAN > 90 mL/min (90-120)
[2019-09-07 05:29] LABS: GLUCOSE 190 mg/dL (74-106); LIPASE 1806 U/L (73-393)
--- NOTE | 2019-09-07 07:57 | NUR ---
PT SITTING UP IN CHAIR AT BEDSIDE. RESP EVEN AND UNLABORED. REPORTS PAIN TO LEFT HAND 10/10 AT THIS TIME. PAIN MEDICATION TO BE ADMINISTERED PER MD ORDERS. LEFT CHEST PORT ACCESSED. SITE WITHOUT REDNESS OR EDEMA. IV TO LEFT UPPER ARM WITH PROCAL INFUSING @ 75ML/HR VIA PUMP. SITE WITHOUT REDNESS OR EDEMA. PT DENIES FURTHER NEEDS AT THIS TIME. CL WITHIN REACH. CONTINUE POC
[2019-09-07] MEDS ORDERED: MIRALAX17 GM PO (08:11)
[2019-09-07 08:39] VITALS: BP 167/80
[2019-09-07] MEDS ORDERED: HYDROCODON-ACE1 EAC7 PO (09:59)
--- NOTE | 2019-09-07 10:03 | MORECARE ---
CASE MANAGEMENT DISCHARGE SUMMARY PATIENT: ANNETTE RON UNIT: [id number] ADM DATE: 08/21/19 AGE: 59 : 56 SEX: M ROOM/BED: D.2204 AUTHOR: HANY CLEVELAND PHYSICIAN: REFERRING PHYSICIAN: ARSALAN BIRMINGHAM MD DATE OF SERVICE: 09/07/19 Discharge Plan Patient Name: ANNETET RON Facility: [facility]:[place] : 1960 Planned Disposition: Home Anticipated Discharge Date: Discharge Date: Expected LOS: Initial Reviewer: [email or web address] Initial Review Date: 08/25/2019 Generated: 09/07/19 11:02 am Comments DCP- Discharge Planning Updated by [email or web address]: Mindy Lu on 09/07/19 9:[address] Patient will be discharging home today. I have given him information about the [place] [facility]. They did not want this at this time, but if needed they would talk to /Dr Payne. He will be staying with his brother for a bit and his is also present to help him. He did not want home health and plans to start treatment soon. IMM served and explained to both patient and . CM to follow as needed DCP- Discharge Planning Updated by [email or web address]: Cintia Woodruff on 08/25/19 1:[address] Patient Name: ANNETTE RON Admission Status: ER Accout number: [id number] Admission Date: 08-21-2019 : 1960 Admission Diagnosis: Attending: ARSALAN BIRMINGHAM Current LOS: 4 Anticipated DC Date: Planned Disposition: Home Primary Insurance: [facility] MEDIC[facility] SOLUTIONS Discharge Planning Comments: CM met with patient to complete initial dc planning assessment. CM educated patient on the CM role and verbal consent given by patient to complete assessment. Patient lives at home with his and grown child. At discharge patient plans to return and feels this is a safe discharge. CM discussed availability of home health, rehab services, and medical equipment. Patient denied known discharge needs at this time. CM will continue to follow and will assist as needed with dc plans/needs. Soap Grinder: Cintia Woodruff DCPIA - Discharge Planning Initial Assessment Updated by [email or web address]: Cintia Woodruff on 08/25/19 2:24 pm * Is the patient Alert and Oriented? Yes * How many steps to enter\exit or inside your home? 5/0 * PCP Dr. Vazquez * Pharmacy [facility] * Preadmission Environment Home with Family * ADLs Independent * Equipment Cane * List name and contact numbers for known caregivers / representatives who currently or will assist patient after discharge: Carola Ron - [phone] - [phone] * Verbal permission to speak to the caregivers and representatives has been obtained from the patient. Yes * Community resources currently utilized None * Additional services required to return to the preadmission environment? No * Can the patient safely return to the preadmission environment? Yes * Has this patient been hospitalized within the prior 30 days at any hospital? No Coverage Notice Reviewer: [id number] Anabel Lu Notice Issued Date-Time: 09/07/2019 9:20 Notice Type: IM Discharge Notice Notice Delivered To: Patient Relationship to Patient: Patient Account Specialist Name: Delivery Method: HAND - Hand Delivered Rosi Days: Prior Verbal Notification: Recipient Understood Notice: Yes Recipient Signature: Yes Med Rec Note Co-signed by Attending: Coverage Notice Comment: Last DP export: 08/25/19 1:27 pm Patient Name: ANNETTE RON Page [id number] at 1003 All edits/amendments must be made on the electronic document DICTATION DATE: 09/07/19 1002 ELECTRICAL SUPERINTENDENT: VALDEZ 09/07/19 1002 RPT#: [id number] DC DATE: STATUS: ADM IN [facility] [address] [place] [address] END OF REPORT
--- NOTE | 2019-09-08 08:27 | MORECARE ---
CASE MANAGEMENT DISCHARGE SUMMARY PATIENT: ANNETTE RON UNIT: [id number] ADM DATE: 08/21/19 AGE: 59 : 56 SEX: M ROOM/BED: D.2204 AUTHOR: HANY CLEVELAND PHYSICIAN: REFERRING PHYSICIAN: ARSALAN BIRMINGHAM MD DATE OF SERVICE: 09/08/19 Discharge Plan Patient Name: ANNETTE RON Facility: [facility]:[place] : 1960 Planned Disposition: Home Anticipated Discharge Date: Discharge Date: 09/07/2019 Expected LOS: 0 Initial Reviewer: [email or web address] Initial Review Date: 08/25/2019 Generated: 09/08/19 9:26 am Comments DCP- Discharge Planning Updated by [email or web address]: Mindy Lu on 09/07/19 9:[address] Patient will be discharging home today. I have given him information about the [place] [facility]. They did not want this at this time, but if needed they would talk to /Dr Payne. He will be staying with his brother for a bit and his is also present to help him. He did not want home health and plans to start treatment soon. IMM served and explained to both patient and . CM to follow as needed DCP- Discharge Planning Updated by [id number]: Cintia Woodruff on 08/25/19 1:[address] Patient Name: ANNETTE RON Admission Status: ER Accout number: [id number] Admission Date: 08-21-2019 : 1960 Admission Diagnosis: Attending: ARSALAN BIRMINGHAM Current LOS: 4 Anticipated DC Date: Planned Disposition: Home Primary Insurance: [facility] MEDICARE SOLUTIONS Discharge Planning Comments: CM met with patient to complete initial dc planning assessment. CM educated patient on the CM role and verbal consent given by patient to complete assessment. Patient lives at home with his and grown child. At discharge patient plans to return and feels this is a safe discharge. CM discussed availability of home health, rehab services, and medical equipment. Patient denied known discharge needs at this time. CM will continue to follow and will assist as needed with dc plans/needs. Integration Architect: Cintia Woodruff DCPIA - Discharge Planning Initial Assessment Updated by [email or web address]: Cintia Woodruff on 08/25/19 2:24 pm * Is the patient Alert and Oriented? Yes * How many steps to enter\exit or inside your home? 5/0 * PCP Dr. Vazquez * Pharmacy [facility] * Preadmission Environment Home with Family * ADLs Independent * Equipment Cane * List name and contact numbers for known caregivers / representatives who currently or will assist patient after discharge: Carola Ron - [facility] - [phone] * Verbal permission to speak to the caregivers and representatives has been obtained from the patient. Yes * Community resources currently utilized None * Additional services required to return to the preadmission environment? No * Can the patient safely return to the preadmission environment? Yes * Has this patient been hospitalized within the prior 30 days at any hospital? No Coverage Notice Reviewer: [email or web address] Anabel Lu Notice Issued Date-Time: 09/07/2019 9:20 Notice Type: IM Discharge Notice Notice Delivered To: Patient Relationship to Patient: Label Rewinder Name: Delivery Method: HAND - Hand Delivered Rosi Days: Prior Verbal Notification: Recipient Understood Notice: Yes Recipient Signature: Yes Med Rec Note Co-signed by Attending: Coverage Notice Comment: Last DP export: 09/07/19 9:03 a Patient Name: ANNETTE RON Page [id number] at 0827 All edits/amendments must be made on the electronic document DICTATION DATE: 09/08/19825 AUTO PARTS COUNTER PERSON: VALDEZ 09/08/19825 RPT#: [id number] DC DATE:09/07/19 STATUS: DIS IN [facility] [address] [place] [address] END OF REPORT
== END 2019-09-07 12:49 | disposition home or self-care (01) | DRG 435 ==
LOC: D.ER 20:49 → D.MS 23:56
PROVIDERS: Emergency Medicine; Family Medicine; Internal Medicine Hematology & Oncology; Internal Medicine Nephrology; Radiology Diagnostic Radiology; Radiology Vascular & Interventional Radiology; Specialist; ADMIT Family Medicine; ATTEND Family Medicine
PROC: 0FB03ZX Excision of Liver, Percutaneous Approach, Diagnostic (ICD-10-PCS; principal; 2019-08-24 08:20)
PROC: 0FB13ZX Excision of Right Lobe Liver, Percutaneous Approach, Diagnostic (ICD-10-PCS; 2019-08-29)
PROC: 05HC33Z Insertion of Infusion Device into Left Basilic Vein, Percutaneous Approach (ICD-10-PCS; 2019-08-31)
PROC: 0JH63XZ Insertion of Tunneled Vascular Access Device into Chest Subcutaneous Tissue and Fascia, Percutaneous Approach (ICD-10-PCS; 2019-09-06)
PROC: 05H633Z Insertion of Infusion Device into Left Subclavian Vein, Percutaneous Approach (ICD-10-PCS; 2019-09-06)
PROC: B5171ZA Fluoroscopy of Left Subclavian Vein using Low Osmolar Contrast, Guidance (ICD-10-PCS; 2019-09-06)
DX: C25.9 Malignant neoplasm of pancreas, unspecified (principal); K85.90 Acute pancreatitis without necrosis or infection, unspecified; E43 Unspecified severe protein-calorie malnutrition; C78.7 Secondary malignant neoplasm of liver and intrahepatic bile duct; G62.9 Polyneuropathy, unspecified; M19.90 Unspecified osteoarthritis, unspecified site; F41.8 Other specified anxiety disorders; K80.20 Calculus of gallbladder without cholecystitis without obstruction

== ENCOUNTER 2019-10-07 16:17 | Inpatient (IN) | payer MEDICARE ==
[~2019-10-07] VITALS: Ht 172.7 cm; Wt 82.6 kg
[~2019-10-07 16:17] MED LIST changes: +ABILIFY10 MG PO; +BUPROPION HCL100 MG PO; +CYCLOBENZAPRINE10 MG PO; +ELAVIL75 MG PO; +HYDROCODON-ACE1 EA10 PO; +HYDROCODON-ACE1 EAC7 PO; +MIRALAX17 GM PO; +MOBIC7.5 MG PO; +NEURONTIN600 MG PO; +PEPCID AC20 MG PO; +TRAZODONE HCL150 MG PO
[2019-10-07 16:49] LABS: BASOPHILS 0 % (0-2); EOSINOPHILS 0 % (0-7); HEMATOCRIT 36.8 % (42.0-54.0); HEMOGLOBIN 12.6 g/dL (13.5-17.5); IMMATURE GRANULOCYTES 0.3 % (0-5); LYMPHOCYTES 2.4 % (15-50); MCH 29.9 pg (26.0-34.0); MCHC 34.2 g/dL (31.0-37.0); MCV 87.2 fL (80.0-100.0); MEAN PLATELET VOLUME 10.1 fL (7.4-10.4); MONOCYTES 0.5 % (2-11); NEUTROPHILS 96.8 % (40-80); PLATELET COUNT 141 10x3/uL (130-400); RBC 4.22 10x6/uL (4.20-6.10); RDW 12.7 % (11.5-14.5); WBC 6.2 10x3/uL (4.8-10.8)
[2019-10-07 17:06] LABS: CALC OSMOLALITY 278 mosm/kg (275-300); CARBON DIOXIDE 18.7 mmol/L (21.0-32.0); CHLORIDE - SERUM 94 mmol/L (98-107); CREATININE - SERUM 0.9 mg/dL (0.6-1.3); GLUCOSE 332 mg/dL (74-106); POTASSIUM - SERUM 4.1 mmol/L (3.5-5.1); SODIUM 132 mmol/L (136-145); UREA NITROGEN 16 mg/dL (7-18); eGFR NON AFRICAN AMERICAN > 90 mL/min (90-120)
[2019-10-07 17:12] LABS: ALBUMIN 2.2 g/dL (3.4-5.0); ALKALINE PHOSPHATASE 276 U/L (30-120); ALT (SGPT) 767 U/L (10-68); PROTEIN - SERUM 6.8 g/dL (6.4-8.2)
[2019-10-07 18:19] LABS: BILIRUBIN NEGATIVE (NEGATIVE); GLUCOSE 1000 mg/dL (NEGATIVE); KETONE LARGE mg/dL (NEGATIVE); NITRITE NEGATIVE (NEGATIVE); UROBILINOGEN NORMAL (NORMAL)
[2019-10-07 19:00] LABS: CALC OSMOLALITY 279 mosm/kg (275-300); CALCIUM 9.7 mg/dL (8.5-10.1); CARBON DIOXIDE 20.2 mmol/L (21.0-32.0); CHLORIDE - SERUM 94 mmol/L (98-107); CREATININE - SERUM 0.9 mg/dL (0.6-1.3); GLUCOSE 329 mg/dL (74-106); POTASSIUM - SERUM 4.3 mmol/L (3.5-5.1); SODIUM 132 mmol/L (136-145); UREA NITROGEN 17 mg/dL (7-18); eGFR NON AFRICAN AMERICAN > 90 mL/min (90-120)
[2019-10-07 19:04] LABS: MAGNESIUM - SERUM 1.5 mg/dL (1.8-2.4); PHOSPHOROUS 3.5 mg/dL (2.5-4.9)
--- NOTE | 2019-10-07 19:52 | NUR ---
INSULIN DRIP NOT INFUSING BUT TAKEN WITH PATIENT AND GIVEN TO BENNY MOORE IN CVICU. NS @ 100 INFUSING, ONLY 50 INFUSED.
[2019-10-07 20:34] VITALS: BP 109/56
--- NOTE | 2019-10-07 20:34 | NUR ---
RECEIVED PATIENT TO ROOM CV04 VIA BED ACCOMPANIED BY ED RN AND FAMILY. ASSISTED TO ICU BED. MONITORS CONNECTED TO PATIENT WITH ALARMS SET. VSS. ASSESSMENT COMPLETED PER FLOW SHEET WITH NO ACUTE DISTRESS OBSERVED. PATIENT DROWSY, ROUSES TO VERBAL STIMULI AND WILL FALL ASLEEP DURING CONVERSATION. ANSWERS SOME QUESTIONS APPRORIATELY. UNABLE TO PERFORM SRS SCREENING AT THIS TIME DUE TO PATIENT'S LOC. ORIENTED TO PERSON ONLY. PATIENT AND ORIENTED TO UNIT, QUESTIONS ANSWERED. CALL LIGHT LIGHT PLACED WITHIN EASY REACH.
[2019-10-07] MEDS ORDERED: ZOFRAN4 MG (20:53)
[2019-10-07] MEDS ORDERED: OMEPRAZOLE40 MG PO (20:54)
[2019-10-07] MEDS ORDERED: PHENERGAN25 M1 PO (20:54)
[2019-10-07] MEDS ORDERED: MYCOSTATIN500000 UNI SWISH/SW (20:56)
[2019-10-07 21:00] VITALS: BP 115/63
[2019-10-07 22:00] VITALS: BP 109/64
[2019-10-07 23:00] VITALS: BP 100/65
--- NOTE | 2019-10-07 23:00 | NUR ---
REASSESSMENT COMPLETED PER FLOW SHEET WITH NO ACUTE DISTRESS OBSERVED. VSS. CALL LIGHT IN REACH
[2019-10-08] VITALS (27 sets, daily range): BP systolic 82–122; BP diastolic 46–70; BMI 26.7
[2019-10-08 00:32] LABS: CALCIUM 8.9 mg/dL (8.5-10.1); CHLORIDE - SERUM 99 mmol/L (98-107); SODIUM 133 mmol/L (136-145); UREA NITROGEN 17 mg/dL (7-18); eGFR NON AFRICAN AMERICAN 81 mL/min (90-120)
[2019-10-08 00:33] LABS: MAGNESIUM - SERUM 1.8 mg/dL (1.8-2.4)
[2019-10-08 00:42] LABS: CALC OSMOLALITY 275 mosm/kg (275-300); CARBON DIOXIDE 26.3 mmol/L (21.0-32.0); GLUCOSE 247 mg/dL (74-106); POTASSIUM - SERUM 3.4 mmol/L (3.5-5.1)
--- NOTE | 2019-10-08 01:00 | NUR ---
RESTING WITH EYES CLOSED,EASILY ROUSED AND ALERT. VSS. IVF INFUSING ORDERED. CALL LIGHT IN REACH
--- NOTE | 2019-10-08 03:00 | NUR ---
REASSESSMENT COMPLETED PER FLOW SHEET WITH NO ACUTE DISTRESS OBSERVED. VSS. CALL LIGHT IN REACH
--- NOTE | 2019-10-08 05:00 | NUR ---
RESTING WITH EYES CLOSED, EASILY ROUSED. DROWSY. VSS. CALL LIGHT IN REACH
[2019-10-08 06:20] LABS: CALCIUM 8.7 mg/dL (8.5-10.1); CARBON DIOXIDE 27.4 mmol/L (21.0-32.0); CHLORIDE - SERUM 100 mmol/L (98-107); MAGNESIUM - SERUM 1.7 mg/dL (1.8-2.4); POTASSIUM - SERUM 3.7 mmol/L (3.5-5.1); SODIUM 133 mmol/L (136-145); UREA NITROGEN 14 mg/dL (7-18)
[2019-10-08 06:21] LABS: CALC OSMOLALITY 266 mosm/kg (275-300); CREATININE - SERUM 0.7 mg/dL (0.6-1.3); GLUCOSE 92 mg/dL (74-106); eGFR NON AFRICAN AMERICAN > 90 mL/min (90-120)
--- NOTE | 2019-10-08 06:30 | NUR ---
SPOKE WITH DR. ROSA , REPORTED LAB RESULTS. NO NEW ORDERS
--- NOTE | 2019-10-08 07:40 | NUR ---
PT RESTING QUIETLY, VSS, INSULIN GTT INFUSING PER SSI. DKA INSULIN PROTOCOL. AWAKENS EASILY.
--- NOTE | 2019-10-08 10:03 | NUR ---
pt c/o nausea. no emesis. zofran given.
--- NOTE | 2019-10-08 10:31 | NUR ---
DR ROSA HERE ON ROUNDS. REPORTED NAUSEA, BS AND MEDS HELD THIS AM.
[2019-10-08 13:10] LABS: CALC OSMOLALITY 264 mosm/kg (275-300); CALCIUM 8.2 mg/dL (8.5-10.1); CARBON DIOXIDE 29.7 mmol/L (21.0-32.0); CHLORIDE - SERUM 97 mmol/L (98-107); CREATININE - SERUM 0.7 mg/dL (0.6-1.3); GLUCOSE 116 mg/dL (74-106); MAGNESIUM - SERUM 1.7 mg/dL (1.8-2.4); POTASSIUM - SERUM 3.3 mmol/L (3.5-5.1); SODIUM 131 mmol/L (136-145); UREA NITROGEN 14 mg/dL (7-18); eGFR NON AFRICAN AMERICAN > 90 mL/min (90-120)
[2019-10-08 14:11] LABS: AMYLASE - SERUM 18 U/L (25-115)
--- NOTE | 2019-10-08 14:11 | NUR ---
ASSISTED PT TO THE BATHROOM. PT DID VOID. UNSTEADY GAIT BUT AMB WITH ONE PERSON ASST. DR CROWELL HERE ON ROUNDS.
--- NOTE | 2019-10-08 14:13 | MORECARE ---
CASE MANAGEMENT DISCHARGE SUMMARY PATIENT: ANNETTE GARAY UNIT: [id number] ADM DATE: 10/07/19 AGE: 59 : 56 SEX: M [facility] AUTHOR: HANY CLEVELAND PHYSICIAN: REFERRING PHYSICIAN: JOSE ROSA MD DATE OF SERVICE: 10/08/19 Discharge Plan Patient Name: ANNETTE GARAY [facility] [facility] 1960 Planned Disposition: Home Anticipated Discharge Date: Discharge Date: Expected LOS: Initial Reviewer: [email or web address] Initial Review Date: 10/07/2019 Generated: 10/08/19 3:13 pm DCPIA - Discharge Planning Initial Assessment Updated by [id number]: Kandy Basurto on 10/08/19 2:10 pm * Is the patient Alert and Oriented? Yes * How many steps to enter\exit or inside your home? 3-4 * PCP PEPITO * Pharmacy [facility] * Preadmission Environment Home with Family * ADLs Independent * Equipment None * List name and contact numbers for known caregivers / representatives who currently or will assist patient after discharge: VANCE SAUCEDA - SISTER - [phone] IGNACIO GARAY - DAUGHTER - [phone] * Verbal permission to speak to the caregivers and representatives has been obtained from the patient. Yes * Community resources currently utilized None * Additional services required to return to the preadmission environment? No * Can the patient safely return to the preadmission environment? Yes * Has this patient been hospitalized within the prior 30 days at any hospital? Yes Patient Name: ANNETTE GARAY Page [phone] at 1413 All edits/amendments must be made on the electronic document DICTATION DATE: 10/08/19 1413 SOLUTIONS ARCHITECT CONSULTANT: VALDEZ 10/08/19 1413 RPT#: [id number] DC DATE: STATUS: ADM IN [facility] [address] [place] [address] END OF REPORT
[2019-10-08 14:15] LABS: LIPASE 181 U/L (73-393)
--- NOTE | 2019-10-08 16:20 | NUR ---
TEMP 99.9 AX. TYLENOL GIVEN. PT TAKING SIPS OF CL WITH OUT DIFFICULTY.
--- NOTE | 2019-10-08 16:30 | MORECARE ---
CASE MANAGEMENT DISCHARGE SUMMARY PATIENT: ANNETTE GARAY UNIT: [id number] ADM DATE: 10/07/19 AGE: 59 : 56 SEX: M [facility] AUTHOR: HANY CLEVELAND PHYSICIAN: REFERRING PHYSICIAN: JOSE ROSA MD DATE OF SERVICE: 10/08/19 Discharge Plan Patient Name: ANNETTE GARAY [facility] [facility] 1960 Planned Disposition: Home Anticipated Discharge Date: Discharge Date: Expected LOS: Initial Reviewer: [email or web address] Initial Review Date: 10/07/2019 Generated: 10/08/19 5:29 pm DCPIA - Discharge Planning Initial Assessment Updated by [id number]: Kandy Basurto on 10/08/19 2:10 pm * Is the patient Alert and Oriented? Yes * How many steps to enter\exit or inside your home? 3-4 * PCP PEPITO * Pharmacy [facility] * Preadmission Environment Home with Family * ADLs Independent * Equipment None * List name and contact numbers for known caregivers / representatives who currently or will assist patient after discharge: VANCE SAUCEDA - SISTER - [phone] IGNACIO GARAY - DAUGHTER - [phone] * Verbal permission to speak to the caregivers and representatives has been obtained from the patient. Yes * Community resources currently utilized None * Additional services required to return to the preadmission environment? No * Can the patient safely return to the preadmission environment? Yes * Has this patient been hospitalized within the prior 30 days at any hospital? Yes Last DP export: 10/08/19 1:13 p Patient Name: ANNETTE GARAY Page 97797 at 1630 All edits/amendments must be made on the electronic document DICTATION DATE: 10/08/191628 TOOL CRIB SUPERVISOR: VALDEZ 10/08/191628 RPT#: [id number] DC DATE: STATUS: ADM IN [facility] [address] [place] [address] END OF REPORT
--- NOTE | 2019-10-08 16:37 | MORECARE ---
CASE MANAGEMENT DISCHARGE SUMMARY PATIENT: ANNETTE GARAY UNIT: [id number] ADM DATE: 10/07/19 AGE: 59 : 56 SEX: M ROOM/BED: [facility] AUTHOR: CRISTOFER,DOC PHYSICIAN: REFERRING PHYSICIAN: JOSE ROSA MD DATE OF SERVICE: 10/08/19 Discharge Plan Patient Name: ANNETTE GARAY Facility: [facility]:[place] : 1960 Planned Disposition: Home Anticipated Discharge Date: Discharge Date: Expected LOS: Initial Reviewer: [email or web address] Initial Review Date: 10/07/2019 Generated: 10/08/19 5:37 pm Comments DCP- Discharge Planning Updated by [email or web address]: Kandy Basurto on 10/08/19 3:[address] Patient Name: ANNETTE GARAY Admission Status: ER Accout number: [id number] Admission Date: 10-07-2019 : 1960 Admission Diagnosis: Attending: JOSE ROSA Current LOS: 1 Anticipated DC Date: Planned Disposition: Home Primary Insurance: [facility] MEDICARE SOLUTIONS Discharge Planning Comments: CM met with patient at bedside after explaining CM role and obtaining verbal consent. Patient lives at home with his brother since he was last admitted. He is independent with his care and plans to return there upon discharge. Patient feels this would be a safe discharge. CM discussed availability / needs of home health and medical equipment. Patient's sister and discussed DME needs for a hospital bed, shower chair to slide over tub, and a bedside commode. Family believes patient will need Home Health upon discharge or possibly Hospice. CORIN signed for no preference on Home health and DME company. Patient states he will have his family drive him home upon discharge. CM will continue to follow and assist as needed with discharge planning / needs. [employer] Utility Supervisor: Kandy Basurto DCPIA - Discharge Planning Initial Assessment Updated by [email or web address]: Kandy Basurto on 10/08/19 2:10 pm * Is the patient Alert and Oriented? Yes * How many steps to enter\exit or inside your home? 3-4 * PCP PEPITO * Pharmacy [facility] * Preadmission Environment Home with Family * ADLs Independent * Equipment None * List name and contact numbers for known caregivers / representatives who currently or will assist patient after discharge: VANCE SAUCEDA - SISTER - [phone] IGNACIO GARAY - DAUGHTER - [phone] * Verbal permission to speak to the caregivers and representatives has been obtained from the patient. Yes * Community resources currently utilized None * Additional services required to return to the preadmission environment? No * Can the patient safely return to the preadmission environment? Yes * Has this patient been hospitalized within the prior 30 days at any hospital? Yes Last DP export: 10/08/19 3:30 p Patient Name: ANNETTE GARAY Page 55541 at 1637 All edits/amendments must be made on the electronic document DICTATION DATE: 10/08/191636 CORPORATE COMMUNICATIONS INTERN: VALDEZ 10/08/191636 RPT#: [id number] DC DATE: STATUS: ADM IN [facility] [address] [place] [address] END OF REPORT
--- NOTE | 2019-10-08 18:31 | NUR ---
ASST TO BATHROOM TO VOID.
--- NOTE | 2019-10-08 19:00 | NUR ---
REPORT RECEIVED. RECEIVED PATIENT IN BED AWAKE ALERT AND ORIENTED X 4. MONITORS CONNECTED TO PATIENT WITH ALARMS SET . VSS. ASSESSMENT COMPLETED PER FLOW SHEET WITH NO ACUTE DISTRESS OBSERVED. CALL LIGHT IN REACH AND ABLE TO UTILIZE TO MAKE NEEDS KNOWN.
--- NOTE | 2019-10-08 21:00 | NUR ---
RESTING WITH EYES CLOSED, EASILY ROUSED. DROWSY. SOME CONFUSION TO PLACE/ SITUATION. VSS. CALL LIGHT IN REACH. AT BEDSIDE QUESTIONS ANSWERED.
--- NOTE | 2019-10-08 23:00 | NUR ---
REASSESSMENT COMPLETED PER FLOW SHEET WITH NO ACUTE DISTRESS OBSERVED. VSS. CALL LIGHT IN REACH
[2019-10-09] VITALS (22 sets, daily range): BP systolic 104–131; BP diastolic 63–86; Ht 172.7 cm; Wt 82.6 kg
--- NOTE | 2019-10-09 03:00 | NUR ---
REASSESSMENT COMPLETED PER FLOW SHEET WITH NO ACUTE DISTRESS OBSERVED. VSS. CALL LIGHT IN REACH.
--- NOTE | 2019-10-09 05:00 | NUR ---
RESTING WITH EYES CLOSED, EASILY ROUSED AND ALERT. VSS. CALL LIGHT IN REACH
[2019-10-09 05:14] LABS: ALBUMIN 1.7 g/dL (3.4-5.0); ALKALINE PHOSPHATASE 187 U/L (30-120); ALT (SGPT) 852 U/L (10-68); BILIRUBIN - TOTAL 3.83 mg/dL (0.2-1.3); CALCIUM 7.6 mg/dL (8.5-10.1); CARBON DIOXIDE 27.6 mmol/L (21.0-32.0); CHLORIDE - SERUM 100 mmol/L (98-107); CREATININE - SERUM 0.7 mg/dL (0.6-1.3); GLUCOSE 94 mg/dL (74-106); POTASSIUM - SERUM 3.7 mmol/L (3.5-5.1); SODIUM 132 mmol/L (136-145); eGFR NON AFRICAN AMERICAN > 90 mL/min (90-120)
[2019-10-09 05:47] LABS: CALC OSMOLALITY 263 mosm/kg (275-300); PROTEIN - SERUM 4.8 g/dL (6.4-8.2); UREA NITROGEN 9 mg/dL (7-18)
[2019-10-09 07:13] LABS: BASOPHILS 0 % (0-2); EOSINOPHILS 1.4 % (0-7); IMMATURE GRANULOCYTES 0.7 % (0-5); LYMPHOCYTES 8.8 % (15-50); MCH 28.8 pg (26.0-34.0); MCHC 34.2 g/dL (31.0-37.0); MEAN PLATELET VOLUME 10.1 fL (7.4-10.4); MONOCYTES 0.7 % (2-11); NEUTROPHILS 88.4 % (40-80); RBC 3.47 10x6/uL (4.20-6.10); RDW 12.8 % (11.5-14.5)
[2019-10-09 07:14] LABS: HEMATOCRIT 29.2 % (42.0-54.0); MCV 84.1 fL (80.0-100.0); PLATELET COUNT 200 10x3/uL (130-400); WBC 1.5 10x3/uL (4.8-10.8)
--- NOTE | 2019-10-09 07:17 | NUR ---
PAGE TO DR. CROWELL TO REPORT CRITICAL LAB RESULTS
--- NOTE | 2019-10-09 07:22 | NUR ---
SPOKE WITH DR. CROWELL. REPORTED LAB RESULTS, NEW ORDERS RECEIVED.
--- NOTE | 2019-10-09 08:00 | NUR ---
PT RESTING COMFORTABLY ON RIGHT SIDE. CONFUSED TO TIME. DENIES HAVING PAIN AT THIS TIME. ON ROOM AIR. HAS LEFT CHEST INFUSA PORT. HAS D5 1/2 NS AT 100ML/HR AND INSULIN DRIP AT 1.3UNITS/HR. PT ON NEUTROPENIC ISOLATION FOR LOW WBC'S. SCD'S IN PLACE. CALL LIGTH IN REACH. NO FURTHER NEEDS AT THIS TIME. WILL CONTINUE TO MONITOR.
--- NOTE | 2019-10-09 10:00 | NUR ---
FAMILY AT BEDSIDE AT THIS TIME. PT RESTING COMFORTABLY. WILL CONTINUE TO MONITOR.
--- NOTE | 2019-10-09 11:22 | NUR ---
RE-ASSESSMENT COMPLETED. RESTING COMFORTABLY. NO ACUTE CHANGES FROM PREVIOUS ASSESSMENT. UNMEASURED VOID REPORTED BY PATIENT. WILL CONTINUE TO MONITOR.
--- NOTE | 2019-10-09 12:00 | NUR ---
DR. VOSS AT BEDSIDE. OKAY TO DC INSULIN DRIP AND PLACE ON HUMALOG INTERMIDIATE SLIDING SCALE.
--- NOTE | 2019-10-09 12:44 | NUR ---
INSULIN DRIP DC'D AT THIS TIME PER DR. VOSS. BLOOD GLUCOSE 138. FAMILY AT BEDSIDE. WILL CONTINUE TO MONITOR.
--- NOTE | 2019-10-09 13:45 | NUR ---
AMBULATED TO BATHROOM X 1 ASSIST. GAIT UNSTEADY. REPORTED BM AT THIS TIME. NO FURTHER NEEDS AT THIS TIME. WILL CONTINUE TO MONITOR.
[2019-10-09] MEDS ORDERED: ALBUTEROL SULF8.5 GM INH (14:38)
--- NOTE | 2019-10-09 15:30 | NUR ---
RE-ASSESSMENT COMPLETED. PT ASLEEP. AROUSES TO VOICE. HR 111 SINUS TACHYCARDIA. PT DENIES OTHER NEEDS AT THIS TIME. WILL CONTINUE TO MONITOR.
--- NOTE | 2019-10-09 16:10 | NUR ---
PT TACHYCARDIC HR OF 110-119. ORAL TEMP 100.4. DR VOSS NOTIFIED. ORDERS RECEIVED.
--- NOTE | 2019-10-09 17:00 | NUR ---
UA COLLECTED AND SENT TO LAB.
--- NOTE | 2019-10-09 17:39 | NUR ---
PT REPORTS HEADACHE ON LEFT SIDE OF HEAD. HE STATES HE'S HAD PAIN ON HIS LEFT SIDE OF HEAD FOR A WHILE. DR. VOSS NOTIFIED. ORDERS RECEIVED. WILL CONTINUE TO MONITOR.
[2019-10-09 18:08] LABS: BILIRUBIN 2+ (NEGATIVE); GLUCOSE NEGATIVE (NEGATIVE); KETONE NEGATIVE (NEGATIVE); NITRITE NEGATIVE (NEGATIVE); SPECIFIC GRAVITY 1.015 (1.005-1.020)
--- NOTE | 2019-10-09 18:37 | NUR ---
PT STATED THAT HE WAS HOT. ICE PACK PROVIDED. COVERS REMOVED PT PT REQUEST. WILL CONTINUE TO MONITOR.
--- NOTE | 2019-10-09 19:00 | NUR ---
VITAL SIGNS STABLE. NO VISUAL CUES OF DISTRESS NOTED. WILL CONTINUE TO MONITOR.
--- NOTE | 2019-10-09 21:00 | NUR ---
VITAL SIGNS STABLE. NO VISUAL CUES OF DISTRESS NOTED. WILL CONTINUE TO MONITOR.
--- NOTE | 2019-10-09 23:00 | NUR ---
VITAL SIGNS STABLE. NO VISUAL CUES OF DISTRESS NOTED. WILL CONTINUE TO MONITOR.
[2019-10-10] VITALS (27 sets, daily range): BP systolic 94–125; BP diastolic 47–76
--- NOTE | 2019-10-10 01:00 | NUR ---
VITAL SIGNS STABLE. NO VISUAL CUES OF DISTRESS NOTED. WILL CONTINUE TO MONITOR.
--- NOTE | 2019-10-10 03:00 | NUR ---
VITAL SIGNS STABLE. NO VISUAL CUES OF DISTRESS NOTED. WILL CONTINUE TO MONITOR.
--- NOTE | 2019-10-10 05:00 | NUR ---
VITAL SIGNS STABLE. NO VISUAL CUES OF DISTRESS NOTED. WILL CONTINUE TO MONITOR.
--- NOTE | 2019-10-10 06:41 | NUR ---
VITAL SIGNS STABLE. NO VISUAL CUES OF DISTRESS NOTED. WILL CONTINUE TO MONITOR.
[2019-10-10 06:43] LABS: ALBUMIN 1.6 g/dL (3.4-5.0); ALKALINE PHOSPHATASE 185 U/L (30-120); ALT (SGPT) 713 U/L (10-68); BILIRUBIN - TOTAL 4.35 mg/dL (0.2-1.3); CALCIUM 8.2 mg/dL (8.5-10.1); CHLORIDE - SERUM 101 mmol/L (98-107); CREATININE - SERUM 0.6 mg/dL (0.6-1.3); MAGNESIUM - SERUM 1.6 mg/dL (1.8-2.4); POTASSIUM - SERUM 4.1 mmol/L (3.5-5.1); PROTEIN - SERUM 5.5 g/dL (6.4-8.2); SODIUM 135 mmol/L (136-145); UREA NITROGEN 10 mg/dL (7-18); eGFR NON AFRICAN AMERICAN > 90 mL/min (90-120)
[2019-10-10 06:45] LABS: CALC OSMOLALITY 271 mosm/kg (275-300); GLUCOSE 152 mg/dL (74-106)
--- NOTE | 2019-10-10 07:00 | NUR ---
RECEIVED BEDSIDE REPORT ON PATIENT AND ASSUMED CARE. PATIENT RESTING QUIELTY WITH EYES CLOSED, EASILY AROUSED BY VOICE. VSS. CM - ST RATE OF 110, BBS - CLEAR AND EQUAL, DIMINISHED IN BASES, SPO2 - 96% ON RA. LEFT IMPLANTED CHEST PORT, ACCESS, WITH NS AT 30 ML/HR INFUSING WITHOUT DIFFICULTY. MAG 1.6 THIS AM ON LABS, 1/2 1 GM MAGNESIUMS INFUSION STARTED, TO RECHECK WITH AM LABS. PATIENT STATES THAT HE IS FEELING BETTER THIS AM AND HEADACHE HAS RESOLVED. HEAD TO TOE ASSESSMENT COMPLETED.
--- NOTE | 2019-10-10 07:40 | NUR ---
PATIENT GIVEN BREAKFAST TRAY AND MED PER MAR.
[2019-10-10 07:51] LABS: BASOPHILS 0 % (0-2); EOSINOPHILS 1.6 % (0-7); HEMOGLOBIN 9.7 g/dL (13.5-17.5); IMMATURE GRANULOCYTES 0.8 % (0-5); LYMPHOCYTES 12.8 % (15-50); MCH 29.3 pg (26.0-34.0); MCHC 34.6 g/dL (31.0-37.0); MCV 84.6 fL (80.0-100.0); MEAN PLATELET VOLUME 10.1 fL (7.4-10.4); MONOCYTES 0.8 % (2-11); PLATELET COUNT 176 10x3/uL (130-400); RBC 3.31 10x6/uL (4.20-6.10); RDW 13.2 % (11.5-14.5)
[2019-10-10 07:52] LABS: WBC 1.3 10x3/uL (4.8-10.8)
--- NOTE | 2019-10-10 08:10 | NUR ---
PATIENT UP TO BATHROOM, HR 120S, DYSPNEA ON EXERTION NOTED. HAS BM AND UOP 250 CC. BACK TO BEDSIDE CHAIR FOR BREAKFAST.
--- NOTE | 2019-10-10 09:08 | NUR ---
DR. CROWELL AT ROOM UPDATED AND EXAMINES PATIENT. ORDERS PLACED.
[2019-10-10 09:25] LABS: INR 1.38 (0.85-1.17); PROTIME 16.8 SECONDS (11.6-15.0)
[2019-10-10 09:26] LABS: D-DIMER-QUANTITATIVE 3.91 ug/mLFEU (0.20-0.54)
--- NOTE | 2019-10-10 09:44 | NUR ---
PATIENT BACK FROM CTA, TOLERATED WELL. BCK TO BED.
--- NOTE | 2019-10-10 10:09 | NUR ---
NOTIFIED DR. CROWELL OF CTA RESULTS, NEGATIVE FOR PE.
--- NOTE | 2019-10-10 10:16 | NUR ---
PATIENT GIVEN INCENTIVE SPIROMETER AND INSTRUCTED ON USE. OBTAINS [address] SIMONS NOTIFIED OF CONSULT.
--- NOTE | 2019-10-10 11:06 | NUR ---
REASSESSMENT COMPLETED. VSS.
--- NOTE | 2019-10-10 11:51 | NUR ---
PATIENT GIVEN LUNCH TRAY, VSS. NO NEEDS AT THIS TIME.
--- NOTE | 2019-10-10 13:27 | NUR ---
COSTING ANALYST AT ROOM TO OBTAIN ECHOCARDIOGRAM.
--- NOTE | 2019-10-10 13:38 | NUR ---
ECHO COMPLETE. VSS. PATIENT RESTING QUIETLY.
--- NOTE | 2019-10-10 14:05 | NUR ---
PATIENT RESTING QUIETLY, EYES CLOSED. VSS.
--- NOTE | 2019-10-10 15:16 | NUR ---
DR. VOSS AT ROOM UPDATED AND EXAMINES PATIENT. TO START TAMIFLU 75 MG BID, FLU SWAB WAS NEGATIVE FOR A AND B FLU. ALSO TO START CARDIZEM SR 120 MG BID (240 MG DAILY) FOR HR 110S.
--- NOTE | 2019-10-10 15:45 | NUR ---
PATIENT GIVEN SPUTUM CUP FOR SPUTUM CULTURE.
--- NOTE | 2019-10-10 16:21 | EC ---
PATIENT:ANNETTE GARAY DATE OF SERVICE: 10/07/19 SEX: M MEDICAL RECORD: [id number] DATE OF : [birth year] LOCATION:[place] [address] AGE OF PATIENT: 59 ADMISSION DATE: 10/07/19 REFERRING PHYSICIAN: INTERPRETING PHYSICIAN: MERARI GODINEZ MD ECHOCARDIOGRAM REPORT ECHO CHARGES 4 ECHO COMPLETE Date: 10/10/19 CLINICAL DIAGNOSIS: SOB ECHOCARDIOGRAPHIC MEASUREMENTS (adult normal given) AC root (d.<3.7cm) 3.7 cm LV Septum d (<1.2 cm> 1.4 cm Valve Excursion 1.4 cm LV Septum (systole) 15 cm Left Atria (s.<4.0cm> 3.0 cm LVPW d(<1.2cm) 1.4 cm RV (d.<2.3cm) 3.4 cm LVPW (sytole) 1.7 cm LV diastole(<5.6CM) 5.3 cm MV E-F(>70mm/sec) cm LV systole 4.1 cm LVOT Diameter 2.3 cm MV exc.(>10mm) 1.0 cm Est.ejection fraction (50-75%) % DOPPLER: LVIT cm/sec A 105.0cm/sec E 78.0 cm/sec LA cm/sec RVSP 16 mmHg LVOT 115 cm/sec AOP1/2T m/s Asc. Ao 134 cm/sec RVOT cm/sec RA cm/sec PA cm/sec AV Gradient Peak 7.23 mmHg AV Mean 4.43 mmHg AV Area 3.7 cm MV Gradient Peak 4.30 mmHg MV Mean 1.80 mmHg MV Area cm COMMENTS: Batch Heat Treat Operator: 2 EVA AZEVEDO Claim Technician: 3 Dr. Rowan TAPE# PACS Pericardial Effusion N DATE OF SERVICE: Adequate 2D, color flow imaging, spectral Doppler, and M-Mode LVH is present. LV internal dimension is normal. Wall motion is normal. EF is greater than or equal to 55%. Aortic valve is tricuspid. No evidence of stenosis by Doppler interrogation. Left atrium normal at 3.0 cm. Mitral valve shows no prolapse. Trace MR. Right-sided chambers are grossly normal. Trace TR. ECHOCARDIOGRAM REPORT [id number] ANNETTE GARAY TRANSINT:[id number] Voice Confirmation ID: [id number] DOCUMENT ID: [id number] MERARI GODINEZ MD at 1621 CC: [id number] DICTATION DATE: 10/10/19 1437 CHRISTIAN SCIENCE PRACTITIONER: 10/10/19 1531 ADM IN [place] [id number] [place] [id number]
[2019-10-11] VITALS (23 sets, daily range): BP systolic 90–124; BP diastolic 57–75
--- NOTE | 2019-10-11 07:00 | NUR ---
PATIENT IN BED SLEEPING. AWAKES TO VERBAL STIMULI SKIN WARM AND DRY. IV LEFT SUBCLAVINA INFUSAPORT INFUSING WITH NS AT 30 ML HOUR. DENIES PAIN. VOIDED 550 ML OF CLEAR FARHANA URINE IN URINAL. MONITOR SR. ON ROOM AIR.
[2019-10-11 07:26] LABS: HEMATOCRIT 29.2 % (42.0-54.0); HEMOGLOBIN 9.8 g/dL (13.5-17.5); LYMPHOCYTES 11.1 % (15-50); MCH 28.8 pg (26.0-34.0); MCHC 33.6 g/dL (31.0-37.0); MCV 85.9 fL (80.0-100.0); MEAN PLATELET VOLUME 8.7 fL (7.4-10.4); NEUTROPHILS 83.1 % (40-80); PLATELET COUNT 124 10x3/uL (130-400); WBC 1.9 10x3/uL (4.8-10.8)
[2019-10-11 07:31] LABS: ALBUMIN 1.5 g/dL (3.4-5.0); ALKALINE PHOSPHATASE 192 U/L (30-120); ALT (SGPT) 799 U/L (10-68); BILIRUBIN - TOTAL 4.75 mg/dL (0.2-1.3); CALC OSMOLALITY 272 mosm/kg (275-300); CARBON DIOXIDE 25.6 mmol/L (21.0-32.0); CHLORIDE - SERUM 103 mmol/L (98-107); CREATININE - SERUM 0.6 mg/dL (0.6-1.3); GLUCOSE 156 mg/dL (74-106); MAGNESIUM - SERUM 1.7 mg/dL (1.8-2.4); PHOSPHOROUS 2.8 mg/dL (2.5-4.9); POTASSIUM - SERUM 3.7 mmol/L (3.5-5.1); PROTEIN - SERUM 5.3 g/dL (6.4-8.2); SODIUM 136 mmol/L (136-145); UREA NITROGEN 8 mg/dL (7-18); eGFR NON AFRICAN AMERICAN > 90 mL/min (90-120)
--- NOTE | 2019-10-11 08:00 | NUR ---
UP IN CHAIR AT BEDSIDE. GOOD GAIT. NO SHORTNESS OF BREATH NOTED. STATES HE DOES HAVE LEG PAIN WITH MUSCLE SPASMS.
--- NOTE | 2019-10-11 09:00 | NUR ---
HERE UPDATE GIVEN. MEDS GIVEN DRINKING PLENTY OF WATER. POOR APPETITE STATES HE IS PICKY REVIEWED MENU WITH PATIENT. ONLY DRANK MILK, JUICE AND COFFEE. STATES HE IS TIRED. VOIDED 350 FARHANA CLEAR URINE
--- NOTE | 2019-10-11 10:31 | NUR ---
RETURNED TO BED. NO DISTRESS.
--- NOTE | 2019-10-11 11:30 | NUR ---
LUNCH TRAY SERVED AND SET UP. GLUCERNA PLACED ON ICE.
--- NOTE | 2019-10-11 12:56 | NUR ---
Nutrition Follow-up: Not eating well. Just drank liquids for breakfast. Will try Glucerna. Noted Procalamine started @ [address] Payne (provides 176 kcal & 22 g protein per day). Diet: Diabetic PO intake: 19% avg x 6 meals No new wt; last wt: 179# (10/09) Last BM: 10/10 per chart Labs noted: Glu 156, Ca 8.0, Alb 1.5, Mg 1.7, elev LFTs Meds noted: NS @ KVO, Humalog, Miralax, Pepcid, MagOx -+Glucerna with meals. -Need new wt. -RD following.
--- NOTE | 2019-10-11 13:02 | NUR ---
ATE FEW BITES OF [place]. DRANK SOME OF HIS MILK. NO DISTRESS. NAPPING MOST OF MORNING
--- NOTE | 2019-10-11 15:00 | NUR ---
SITTING IN BED ON COMPUTER. NO DISTRESS DENIES PAIN. IN ROOM WITH PATIENT. DRESSING LEFT LATERAL CHEST SATURATED WITH SEROUS FLUID STERILE 4X4 APPLIED SECURE WITH TEGRADERM. PATIENT TOLERATED WELL.
--- NOTE | 2019-10-11 15:00 | NUR ---
CAME IN ROOM FOR A FEW MINTUES. PATIENT SLEEPING. FACE FLUSHED. PO MEDS TAKEN NO DISTRESS. DENIES PAIN.
--- NOTE | 2019-10-11 17:00 | NUR ---
SAT ON SIDE OF BED FOR DINNER. ATE COUPLE BITES OF [place], DRANK GLUCERNA WITH ICE CREAM. STATES HE IS TIRED. MINIMAL SHORTNESS OF BREATH.
--- NOTE | 2019-10-11 19:53 | NUR ---
PT RECEIVED WITH EYES CLOSED AND CHEST RISING. NO S/S OF DISTRESS. EASILY AWOKEN TO VERBAL STIMULI. NO NEEDS MADE KNOWN. CALL LIGHT IN REACH. WILL CONTINUE TO OBSERVE.
--- NOTE | 2019-10-11 19:55 | NUR ---
PT RECEIVED WITH EYES CLOSED AND CHEST RISING. NO S/S OF DISTRESS NOTED. EASILY AWOKEN TO VERBAL STIMULI. UP TO BATHROOM WITH ASSIST WITH CHEST TUBE. AMBULATION SLOW AND STEADY. BACK IN BED. CALL LIGHT IN REACH. WILL CONTINUE TO OBSERVE.
--- NOTE | 2019-10-11 21:45 | NUR ---
PT VISITING WITH FAMILY, NO NEEDS MADE KNOWN. CALL LIGHT IN REACH. WILL CONTINUE TO OBSERVE.
--- NOTE | 2019-10-11 22:45 | NUR ---
ASSIST TO BEDSIDE COMMODE GIVEN, URINE ONLY NOTED. BACK IN BED. CALL LIGHT IN REACH. WILL CONTINUE TO OBSERVE.
[2019-10-12] VITALS (24 sets, daily range): BP systolic 110–134; BP diastolic 61–81
--- NOTE | 2019-10-12 01:23 | NUR ---
PT RESTING WITH EYES CLOSED AND CHEST RISING. EASILY AWOKEN TO VERBAL STIMULI. NO NEEDS NOTED. CALL LIGHT IN REACH. WILL CONTINUE TO OBSERVE.
--- NOTE | 2019-10-12 03:11 | NUR ---
PT RESTING WITH EYES CLOSED AND CHEST RISING. NO S/S OF DISTRESS. CALL LIGHT IN REACH. WILL CONTINUE TO OBSERVE.
[2019-10-12 05:33] LABS: ALBUMIN 1.4 g/dL (3.4-5.0); ALKALINE PHOSPHATASE 224 U/L (30-120); ALT (SGPT) 706 U/L (10-68); BILIRUBIN - TOTAL 3.85 mg/dL (0.2-1.3); CALC OSMOLALITY 270 mosm/kg (275-300); CALCIUM 7.8 mg/dL (8.5-10.1); CARBON DIOXIDE 27.8 mmol/L (21.0-32.0); CHLORIDE - SERUM 101 mmol/L (98-107); CREATININE - SERUM 0.6 mg/dL (0.6-1.3); GLUCOSE 154 mg/dL (74-106); MAGNESIUM - SERUM 1.7 mg/dL (1.8-2.4); PHOSPHOROUS 2.7 mg/dL (2.5-4.9); POTASSIUM - SERUM 3.5 mmol/L (3.5-5.1); PROTEIN - SERUM 5.2 g/dL (6.4-8.2); SODIUM 135 mmol/L (136-145); UREA NITROGEN 8 mg/dL (7-18); eGFR NON AFRICAN AMERICAN > 90 mL/min (90-120)
[2019-10-12 05:46] LABS: HEMATOCRIT 28.2 % (42.0-54.0); HEMOGLOBIN 9.7 g/dL (13.5-17.5); MCHC 34.4 g/dL (31.0-37.0); MCV 84.4 fL (80.0-100.0); MEAN PLATELET VOLUME 9.7 fL (7.4-10.4); RBC 3.34 10x6/uL (4.20-6.10); RDW 13.7 % (11.5-14.5)
[2019-10-12 05:47] LABS: PLATELET COUNT 98 10x3/uL (130-400)
--- NOTE | 2019-10-12 07:15 | NUR ---
BATH GIVEN, GOWN CHANGED. PT UP IN CHAIR. TOLERATED WELL
--- NOTE | 2019-10-12 09:55 | NUR ---
COMPLETE BED LINEN CHANGE. PATIENT BACK TO BED FROM RECLINER WITH MOD ASSIST. MONITORING EQUIPMENT ON AND FUNCTIONING PROPERLY. BED IN LOW POSITION AND PERSONAL BELONGINGS/CALL LIGHT WITHIN REACH.
[2019-10-12 10:28] LABS: ANISOCYTOSIS OCC; BASOPHILS 1 % (0-2); EOSINOPHILS 1 % (0-7); LYMPHOCYTES 10 % (15-50); MONOCYTES 11 % (2-11); NEUTROPHILS 66 % (40-80); PLATELET ESTIMATE DECREASED; SMUDGE CELLS OCC; TOXIC GRANULATION OCC
--- NOTE | 2019-10-12 11:38 | NUR ---
DR VOSS AT BEDSIDE SPEAKING TO BOTH PATIENT AND ABOUT PLAN OF CARE.
[2019-10-12 12:04] LABS: VANCOMYCIN - TROUGH 7.4 ug/mL (10.0-20.0)
[2019-10-12 12:05] LABS: POTASSIUM - SERUM 4.1 mmol/L (3.5-5.1)
--- NOTE | 2019-10-12 13:24 | NUR ---
PATIENT RESTING IN BED WITH EYES CLOSED. AWAKENS EASILY WHEN SPOKEN TO. DENIES ANY NEEDS AT THIS TIME. VSS. BED IN LOW POSITION. PERSONAL ITEMS AND CALL LIGHT WITHIN REACH.
--- NOTE | 2019-10-12 16:44 | NUR ---
350 CC OF CONCENTRATED URINE OUTPUT IN URINAL
--- NOTE | 2019-10-12 17:38 | NUR ---
PATIENT RESTING COMFORTABLY WITH EYES CLOSED. DENIES NEEDS AT THIS TIME. BED IN LOW POSITION WITH PERSONAL ITEMS AND CALL LIGHT WITHIN REACH. VSS. WILL CONTINUE TO MONITOR.
--- NOTE | 2019-10-12 19:30 | NUR ---
PT AROUSES EASILY, A/OX4, LUNGS CLEAR, LEFT PORT WITH REES NEEDLE INTACT AND IVF'S INFUSING, ASSESSMENT COMPLETED, NO C/O AT THIS TIME
--- NOTE | 2019-10-12 21:25 | NUR ---
PT AWAKE, PRESENT IN ROOM, VITALS STABLE, WILL CONT TO MONITOR
--- NOTE | 2019-10-12 23:00 | NUR ---
PT RESTING QUIETLY WITH EYES CLOSED, VITALS STABLE
[2019-10-13] VITALS (24 sets, daily range): BP systolic 103–132; BP diastolic 61–82
--- NOTE | 2019-10-13 01:11 | NUR ---
PT ASLEEP WITH NO DISTRESS NOTED, AROUSES EASILY, WILL CONT TO MONITOR
--- NOTE | 2019-10-13 03:05 | NUR ---
PT REMAINS ASLEEP WITHOUT DISTRESS, WILL CONT TO MONITOR
--- NOTE | 2019-10-13 05:05 | NUR ---
AM LAB DRAWN FROM LEFT PORT, PT REMAINS ASLEEP WITHOUT DISTRESS, VITALS STABLE
[2019-10-13 05:46] LABS: BASOPHILS 3.9 % (0-2); EOSINOPHILS 0.6 % (0-7); HEMATOCRIT 28.4 % (42.0-54.0); HEMOGLOBIN 9.7 g/dL (13.5-17.5); IMMATURE GRANULOCYTES 26.5 % (0-5); LYMPHOCYTES 8.6 % (15-50); MCH 28.8 pg (26.0-34.0); MCHC 34.2 g/dL (31.0-37.0); MCV 84.3 fL (80.0-100.0); MONOCYTES 7.1 % (2-11); NEUTROPHILS 53.3 % (40-80); PLATELET COUNT 100 10x3/uL (130-400); RBC 3.37 10x6/uL (4.20-6.10); RDW 13.9 % (11.5-14.5)
[2019-10-13 05:55] LABS: ALBUMIN 1.3 g/dL (3.4-5.0); ALKALINE PHOSPHATASE 291 U/L (30-120); ALT (SGPT) 678 U/L (10-68); BILIRUBIN - TOTAL 3.81 mg/dL (0.2-1.3); CALC OSMOLALITY 268 mosm/kg (275-300); CARBON DIOXIDE 23.9 mmol/L (21.0-32.0); CHLORIDE - SERUM 101 mmol/L (98-107); CREATININE - SERUM 0.7 mg/dL (0.6-1.3); GLUCOSE 185 mg/dL (74-106); MAGNESIUM - SERUM 1.5 mg/dL (1.8-2.4); PHOSPHOROUS 2.1 mg/dL (2.5-4.9); POTASSIUM - SERUM 3.7 mmol/L (3.5-5.1); PROTEIN - SERUM 5.2 g/dL (6.4-8.2); SODIUM 132 mmol/L (136-145); UREA NITROGEN 10 mg/dL (7-18); eGFR NON AFRICAN AMERICAN > 90 mL/min (90-120)
--- NOTE | 2019-10-13 10:00 | NUR ---
Nutrition Follow-up: Eating breakfast at time of visit. Pt reports no real improvement in appetite. Does not like Glucerna. Megace started yesterday. Continues to receive Procalamine @ 30. Diet: Diabetic PO intake: 25-50% yesterday Wt: 181.8# (10/13); 179# (10/09); 175# (10/07) Last BM: 10/11 per chart Labs noted: Na 132, Glu 185, Ca 8.0, PO4 2.1, Mg 1.5, Alb 1.3, elev LFTs Meds noted: Megace, NS @ KVO, Humalog, Neutra-Phos, KDur, MagOx, Miralax, Pepcid -Glucerna stopped per pt request. -MD may consider increase in Procal rate. -Monitor wt. -RD following.
--- NOTE | 2019-10-13 14:38 | NUR ---
OT NOTE: PT PERFORMED MUCH BETTER TODAY. PT WAS ALERT AND SITTING IN CHAIR; FAMILY ASSIST TO CHAIR. ABLE TO PERFORM SIT TO STAND WITH MIN ASSIST; AMB IN ROOM WITH WALKER AND MIN ASSIST X 20+ FT; STATIC STANDING BALANCE F+..STATIC AND DYNAMIC SITTING BALANCE G...TRANSFERS WITH MIN ASSIST. PROVIDED PT/FAMILY WTIH WALKER SO THAT THEY CAN ASSIST HIM TO BATHROOM. PT MUCH MORE SAFE WITH WALKER VS NOTHING. MEL JETT, OTR/L [phone]
--- NOTE | 2019-10-13 19:05 | NUR ---
PT AWAKE, SITTING ON SIDE OF BED, LEFT PORT WITH REES NEEDLE IN PLACE WITH NS @ KVO AND PROCALAMINE @ 50 CC/HR, HR 115 SINUS TACH, SCD'S TO BILAT LOWER LEGS, NO C/O @ THIS TIME
--- NOTE | 2019-10-13 21:15 | NUR ---
PT AROUSES EASILY, SOMNOLENT, TAKES PO MEDS WITHOUT DIFFICULTY, PRESENT AT BEDSIDE, STATES PT ABD IS DISTENDED, PT STATES HE HAS FEELING OF BEING FULL, NO DISTRESS NOTED, WILL MONITOR AND MAKE RECOMMENDATIONS IN AM IF NO CHANGES TONIGHT, VITALS STABLE
--- NOTE | 2019-10-13 23:00 | NUR ---
PT SLEEPING ON LEFT SIDE WITH NO DISTRESS NOTED, VITALS STABLE
[2019-10-14] VITALS (17 sets, daily range): BP systolic 107–138; BP diastolic 63–87
--- NOTE | 2019-10-14 01:04 | NUR ---
REMAINS ASLEEP, AROUSES EASILY WITH NO C/O, WILL CONT TO MONITOR
--- NOTE | 2019-10-14 03:19 | NUR ---
PT SLEEPING SOUNDLY, RETAPED PULSE OX PROBE, VITALS STABLE, NO CHANGES NOTED
--- NOTE | 2019-10-14 04:50 | NUR ---
PT REMAINS ASLEEP, AM LAB DRAWN FROM LEFT PORT, NO DISTRESS NOTED
[2019-10-14 05:18] LABS: HEMATOCRIT 30.2 % (42.0-54.0); HEMOGLOBIN 10.4 g/dL (13.5-17.5); MCHC 34.4 g/dL (31.0-37.0); MCV 84.1 fL (80.0-100.0); MEAN PLATELET VOLUME 10.5 fL (7.4-10.4); PLATELET COUNT 105 10x3/uL (130-400); RBC 3.59 10x6/uL (4.20-6.10); RDW 14.1 % (11.5-14.5); WBC 23.8 10x3/uL (4.8-10.8)
[2019-10-14 05:20] LABS: EOSINOPHILS 2 % (0-7); LYMPHOCYTES 12 % (15-50); MONOCYTES 9 % (2-11); NEUTROPHILS 60 % (40-80)
[2019-10-14 05:21] LABS: ANISOCYTOSIS OCC; PLATELET ESTIMATE DECREASED; SMUDGE CELLS OCC; TOXIC GRANULATION 1+
[2019-10-14 05:25] LABS: ALBUMIN 1.4 g/dL (3.4-5.0); ALKALINE PHOSPHATASE 370 U/L (30-120); ALT (SGPT) 580 U/L (10-68); BILIRUBIN - TOTAL 4.61 mg/dL (0.2-1.3); CALC OSMOLALITY 267 mosm/kg (275-300); CALCIUM 8.1 mg/dL (8.5-10.1); CHLORIDE - SERUM 102 mmol/L (98-107); CREATININE - SERUM 0.7 mg/dL (0.6-1.3); GLUCOSE 149 mg/dL (74-106); MAGNESIUM - SERUM 1.5 mg/dL (1.8-2.4); PHOSPHOROUS 2.6 mg/dL (2.5-4.9); POTASSIUM - SERUM 3.8 mmol/L (3.5-5.1); PROTEIN - SERUM 5.4 g/dL (6.4-8.2); SODIUM 133 mmol/L (136-145); UREA NITROGEN 10 mg/dL (7-18); eGFR NON AFRICAN AMERICAN > 90 mL/min (90-120)
--- NOTE | 2019-10-14 15:26 | NUR ---
TRANSFERRED TO ROOM 2224 VIA BED. WALKED TO ROOM AND INTO BED. NO DISTRESS NOTED.
--- NOTE | 2019-10-14 20:00 | NUR ---
PATIENT RESTING IN BED WITH SPOUSE AT BEDSIDE. NO S/S OF DISTRESS. NO C/O AT THIS TIME. PATIENT HAS PORT ON LEFT SIDE OF CHEST WITH PROCALAMINE @ 60 ML/HR AND NORMAL SALINE @ 10 ML/HR. PORT IS PATENT WITH DRESSING INTACT AND SWAB CAPS IN PLACE. PATENT IS UP WITH ASSIST. PATIENT USES URINAL. CALL LIGHT IN PLACE. WILL CONTINUE TO MONITOR.
[2019-10-15] VITALS: BP 111/72
--- NOTE | 2019-10-15 03:00 | NUR ---
I have reviewed this patient and I concur with the Shift Assessment completed by the Licensed Practical Nurse today this shift.
[2019-10-15 04:00] VITALS: BP 122/73
[2019-10-15 08:40] VITALS: BP 133/75
--- NOTE | 2019-10-15 09:00 | NUR ---
ALERT AND ORIENTED X4. DENIES ANY ABDOMINAL PAIN OR DISCOMFORT WITH BOWEL SOUNDS NOTES X4. LUNGS CTA WITH IVF INFUSING TO LEFT CHEST MEDIPORT AT PRESCRIBED RATE. UP ADLIB AND ENCOURAGED TO USE CALLL LIGHT FOR ASSIST.
[2019-10-15 17:21] VITALS: BP 130/76
--- NOTE | 2019-10-15 19:22 | NUR ---
PATIENT RESTING IN BED WITH NO S/S OF DISTRESS. PATIENT DENIES NEEDS AT THIS TIME. BED IN LOWEST POSITION AND CALL LIGHT WITHIN REACH. ENCOURAGED THE PATIENT TO CALL IF HE HAS NEEDS. WILL CONTINUE TO MONITOR.
[2019-10-15 19:30] VITALS: BP 131/76
--- NOTE | 2019-10-15 21:28 | NUR ---
ADMINISTERED MEDS PER ORDERS. PATIENT DENIES OTHER NEEDS AT THIS TIME. BED IN LOWEST POSITION AND CALL LIGHT WITHIN REACH. ENCOURAGED THE PATIENT TO CALL IF HE HAS NEEDS. WILL CONTINUE TO MONITOR.
[2019-10-16] VITALS: BP 128/74
--- NOTE | 2019-10-16 00:09 | NUR ---
PATIENT RESTING IN BED WITH EYES CLOSED AND NO S/S OF DISTRESS. GUEST AT BEDSIDE. WILL CONTINUE TO MONITOR.
[2019-10-16 04:00] VITALS: BP 124/76
[2019-10-16 08:50] VITALS: BP 132/84
--- NOTE | 2019-10-16 08:52 | NUR ---
OT NOTE: (DOS 10/13/19) PT COMPLETED UE AROM EXS. PT COMPLETED SIT TO STAND WITH MIN A TO CGA. PT COMPLETED SITTING BALANCE WITH SPV. [phone] THANK YOU,ALIZE NGUYEN
[2019-10-16 09:42] LABS: HEMATOCRIT 34.2 % (42.0-54.0); HEMOGLOBIN 11.7 g/dL (13.5-17.5); MCH 28.9 pg (26.0-34.0); MCHC 34.2 g/dL (31.0-37.0); MCV 84.4 fL (80.0-100.0); MEAN PLATELET VOLUME 11.3 fL (7.4-10.4); PLATELET COUNT 101 10x3/uL (130-400); RBC 4.05 10x6/uL (4.20-6.10); RDW 15.3 % (11.5-14.5); WBC 21.7 10x3/uL (4.8-10.8)
[2019-10-16 09:59] LABS: ALBUMIN 1.6 g/dL (3.4-5.0); ALKALINE PHOSPHATASE 356 U/L (30-120); ALT (SGPT) 372 U/L (10-68); BILIRUBIN - TOTAL 5.31 mg/dL (0.2-1.3); CALC OSMOLALITY 268 mosm/kg (275-300); CALCIUM 8.9 mg/dL (8.5-10.1); CARBON DIOXIDE 23.5 mmol/L (21.0-32.0); CHLORIDE - SERUM 101 mmol/L (98-107); CREATININE - SERUM 0.7 mg/dL (0.6-1.3); GLUCOSE 190 mg/dL (74-106); POTASSIUM - SERUM 3.8 mmol/L (3.5-5.1); PROTEIN - SERUM 6.2 g/dL (6.4-8.2); SODIUM 132 mmol/L (136-145); UREA NITROGEN 11 mg/dL (7-18); eGFR NON AFRICAN AMERICAN > 90 mL/min (90-120)
[2019-10-16 10:04] LABS: LYMPHOCYTES 5 % (15-50); MONOCYTES 5 % (2-11); NEUTROPHILS 62 % (40-80); PLATELET ESTIMATE DECREASED
--- NOTE | 2019-10-16 11:26 | NUR ---
PT IS WITHOUT DISTRESS.CALL LIGHT IN REACH
[2019-10-16 13:23] VITALS: BP 105/68
[2019-10-16 16:19] VITALS: BP 114/76
--- NOTE | 2019-10-16 16:59 | NUR ---
OT NOTE: PT COMPLETED SUPINE TO SIT WITH SBA. PT COMPLETED SIT TO STAND WITH SBA/CGA. PT COMPLETED ADL MOB WITH RW WITH MIN A SECONDARY TO IMPULSIVENESS. PT REQUIRED VERBAL CUES ON WALKER MANAGEMENT. PT EXHIBITED A FAST PACE. PT CAUTIONED TO SLOW DOWN TO DECREASE RISK OF FALL. PT COMPLETED HAND WASHING AT SINK LEVEL WITH SBA/CGA. PT COMPLETED FACE WASH AT SINK LEVEL WITH SBA/CGA. [phone] THANK YOU, ALIZE NGUYEN
[2019-10-16 17:08] LABS: AEROBE ID Final report (())
[2019-10-16 19:30] VITALS: BP 125/80
[2019-10-16 20:16] LABS: BILIRUBIN NEGATIVE (NEGATIVE); GLUCOSE NEGATIVE (NEGATIVE); KETONE NEGATIVE (NEGATIVE); NITRITE NEGATIVE (NEGATIVE); UROBILINOGEN NORMAL (NORMAL)
--- NOTE | 2019-10-16 22:41 | NUR ---
PT LYING IN BED ASLEEP. EVEN RISE AND FALL OF CHEST. NO S/SX OF DISTRESS, SPOUSE AT BEDSIDE, PT BLOOD SUGAR WAS 149 AT 1999. ADMINISTERED ONLY 5U OF LANTIS. INFUSAPORT TO LEFT SUBCLAVIN PATENT. AREA CDI. NO NEEDS VOICED BY SPOUSE CONTINUE WITH PLAN OF CARE
[2019-10-17] VITALS: BP 130/75
--- NOTE | 2019-10-17 01:05 | NUR ---
I have reviewed this patient and I concur with the Shift Assessment completed by the Licensed Practical Nurse today this shift.
[2019-10-17 04:00] VITALS: BP 123/66
[2019-10-17 04:39] LABS: CALCIUM 8.4 mg/dL (8.5-10.1); CARBON DIOXIDE 25.3 mmol/L (21.0-32.0); CHLORIDE - SERUM 102 mmol/L (98-107); POTASSIUM - SERUM 4.2 mmol/L (3.5-5.1); SODIUM 135 mmol/L (136-145); UREA NITROGEN 13 mg/dL (7-18)
[2019-10-17 04:46] LABS: BASOPHILS 1.9 % (0-2); EOSINOPHILS 0.2 % (0-7); HEMATOCRIT 31.6 % (42.0-54.0); HEMOGLOBIN 10.7 g/dL (13.5-17.5); IMMATURE GRANULOCYTES 22.6 % (0-5); LYMPHOCYTES 6.8 % (15-50); MCH 28.6 pg (26.0-34.0); MCHC 33.9 g/dL (31.0-37.0); MCV 84.5 fL (80.0-100.0); MEAN PLATELET VOLUME 11.6 fL (7.4-10.4); MONOCYTES 8.7 % (2-11); NEUTROPHILS 59.8 % (40-80); PLATELET COUNT 107 10x3/uL (130-400); RBC 3.74 10x6/uL (4.20-6.10); RDW 15.5 % (11.5-14.5)
[2019-10-17 04:48] LABS: CALC OSMOLALITY 271 mosm/kg (275-300); CREATININE - SERUM 0.9 mg/dL (0.6-1.3); GLUCOSE 141 mg/dL (74-106); eGFR NON AFRICAN AMERICAN > 90 mL/min (90-120)
[2019-10-17 08:30] VITALS: BP 123/73
--- NOTE | 2019-10-17 09:57 | MORECARE ---
CASE MANAGEMENT DISCHARGE SUMMARY PATIENT: ANNETTE GARAY UNIT: [id number] ADM DATE: 10/07/19 AGE: 59 : 56 SEX: M ROOM/BED: D.2224 AUTHOR: CRISTOFER,DOC PHYSICIAN: REFERRING PHYSICIAN: JOSE ROSA MD DATE OF SERVICE: 10/17/19 Discharge Plan Patient Name: ANNETTE GARAY Facility: [facility]:[place] : 1960 Planned Disposition: Home Anticipated Discharge Date: Discharge Date: Expected LOS: Initial Reviewer: [email or web address] Initial Review Date: 10/07/2019 Generated: 10/17/19 10:56 am DCP- Discharge Planning Updated by [email or web address]: Kandy Basurto on 10/08/19 3:[address] Patient Name: ANNETTE GARAY Admission Status: ER Accout number: [id number] Admission Date: 10-07-2019 : 1960 Admission Diagnosis: Attending: JOSE ROSA Current LOS: 1 Anticipated DC Date: Planned Disposition: Home Primary Insurance: [facility] MEDICARE SOLUTIONS Discharge Planning Comments: CM met with patient at bedside after explaining CM role and obtaining verbal consent. Patient lives at home with his brother since he was last admitted. He is independent with his care and plans to return there upon discharge. Patient feels this would be a safe discharge. CM discussed availability / needs of home health and medical equipment. Patient's sister and discussed DME needs for a hospital bed, shower chair to slide over tub, and a bedside commode. Family believes patient will need Home Health upon discharge or possibly Hospice. CORIN signed for no preference on Home health and DME company. Patient states he will have his family drive him home upon discharge. CM will continue to follow and assist as needed with discharge planning / needs. Radio Board Operator: Kandy Basurto DCPIA - Discharge Planning Initial Assessment Updated by [id number]: Kandy Basurto on 10/08/19 2:10 pm * Is the patient Alert and Oriented? Yes * How many steps to enter\exit or inside your home? 3-4 * PCP PEPITO * Pharmacy [facility] * Preadmission Environment Home with Family * ADLs Independent * Equipment None * List name and contact numbers for known caregivers / representatives who currently or will assist patient after discharge: VANCE SAUCEDA - SISTER - [phone] IGNACIO GARAY - DAUGHTER - [phone] * Verbal permission to speak to the caregivers and representatives has been obtained from the patient. Yes * Community resources currently utilized None * Additional services required to return to the preadmission environment? No * Can the patient safely return to the preadmission environment? Yes * Has this patient been hospitalized within the prior 30 days at any hospital? Yes External Providers External Provider: [facility] Next Contact Date: Service Request Date: Service Type: Resolution: Reviewer: Comments: External Provider: [facility] Next Contact Date: Service Request Date: Service Type: Resolution: Reviewer: Comments: Coverage Notice Reviewer: [id number] Anabel Basurto Notice Issued Date-Time: 10/08/2019 16:44 Notice Type: Patient Choice Letter Notice Delivered To: Family Member Relationship to Patient: Spouse Record Center Specialist Name: Delivery Method: HAND - Hand Delivered Rosi Days: Prior Verbal Notification: Recipient Understood Notice: Yes Recipient Signature: Yes Med Rec Note Co-signed by Attending: Coverage Notice Comment: no preference on Home health or DME company Last DP export: 10/08/19 3:37 p Patient Name: ANNETTE GARAY Page 00531 at 0957 All edits/amendments must be made on the electronic document DICTATION DATE: 10/17/19955 DISK RECORDIST: VALDEZ 10/17/1958 RPT#: [id number] DC DATE: STATUS: ADM IN [facility] [address] [place] [address] END OF REPORT
--- NOTE | 2019-10-17 10:50 | NUR ---
PT SITTING UP IN BED WITH SPOUSE AND FAMILY AT BEDSIDE, STATED HE NEEDED SOMETHING FOR PAIN, ADMINISTERED PRN PAIN MEDICATION. BED IN LOWER POSITION, CL IN REACH. CONTINUE WITH PLAN OF CARE
[2019-10-17 13:23] VITALS: BP 119/72
[2019-10-17] MEDS ORDERED: CARDIZEM CD240 MG PO (13:45)
[2019-10-17] MEDS ORDERED: BASAGLAR K100 UNIT/1 SC (13:51)
--- NOTE | 2019-10-17 15:44 | MORECARE ---
CASE MANAGEMENT DISCHARGE SUMMARY PATIENT: ANNETTE GARAY UNIT: [id number] ADM DATE: 10/07/19 AGE: 59 : 56 SEX: M ROOM/BED: D.2224 AUTHOR: CRISTOFER,DOC PHYSICIAN: REFERRING PHYSICIAN: JOSE ROSA MD DATE OF SERVICE: 10/17/19 Discharge Plan Patient Name: ANNETTE GARAY Facility: [facility]:[place] : 1960 Planned Disposition: Home Anticipated Discharge Date: Discharge Date: Expected LOS: Initial Reviewer: [email or web address] Initial Review Date: 10/07/2019 Generated: 10/17/19 4:44 pm Comments DCP- Discharge Planning Updated by [email or web address]: Cintia Woodruff on 10/17/19 2:[address] [facility] is not going to be able to deliver bed without the 55 dollar copay. Patient's states to see if [facility] can deliver. I called [facility] and they do have a hospital bed and can deliver the bed today, with the [facility]. I spoke with Bobbi at [facility] and they will see patient on . CM will continue to follow and assist with discharge planning/needs. DCP- Discharge Planning Updated by [email or web address]: Kandy Basurto on 10/08/19 3:[address] Patient Name: ANNETTE GARAY Admission Status: ER Accout number: [id number] Admission Date: 10-07-2019 : 1960 Admission Diagnosis: Attending: JOSE ROSA Current LOS: 1 Anticipated DC Date: Planned Disposition: Home Primary Insurance: [facility] MEDICARE SOLUTIONS Discharge Planning Comments: CM met with patient at bedside after explaining CM role and obtaining verbal consent. Patient lives at home with his brother since he was last admitted. He is independent with his care and plans to return there upon discharge. Patient feels this would be a safe discharge. CM discussed availability / needs of home health and medical equipment. Patient's sister and discussed DME needs for a hospital bed, shower chair to slide over tub, and a bedside commode. Family believes patient will need Home Health upon discharge or possibly Hospice. CORIN signed for no preference on Home health and DME company. Patient states he will have his family drive him home upon discharge. CM will continue to follow and assist as needed with discharge planning / needs. Barbering Instructor: Kandy Basurto DCPIA - Discharge Planning Initial Assessment Updated by [id number]: Kandy Basurto on 10/08/19 2:10 pm * Is the patient Alert and Oriented? Yes * How many steps to enter\exit or inside your home? 3-4 * PCP PEPITO * Pharmacy [facility] * Preadmission Environment Home with Family * ADLs Independent * Equipment None * List name and contact numbers for known caregivers / representatives who currently or will assist patient after discharge: VANCE SAUCEDA - SISTER - [phone] IGNACIO Little DAUGHTER - [phone] * Verbal permission to speak to the caregivers and representatives has been obtained from the patient. Yes * Community resources currently utilized None * Additional services required to return to the preadmission environment? No * Can the patient safely return to the preadmission environment? Yes * Has this patient been hospitalized within the prior 30 days at any hospital? Yes Coverage Notice Reviewer: [id number] - Kandy Basurto Notice Issued Date-Time: 10/08/2019 16:44 Notice Type: Patient Choice Letter Notice Delivered To: Family Member Relationship to Patient: Spouse Manager Creative Name: Delivery Method: HAND - Hand Delivered Rosi Days: Prior Verbal Notification: Recipient Understood Notice: Yes Recipient Signature: Yes Med Rec Note Co-signed by Attending: Coverage Notice Comment: no preference on Home health or [employer] Reviewer: [id number] Anabel Woodruff Notice Issued Date-Time: 10/17/2019 14:50 Notice Type: IM Discharge Notice Notice Delivered To: Family Member Relationship to Patient: Spouse Manager Creative Name: Delivery Method: HAND - Hand Delivered Rosi Days: Prior Verbal Notification: Recipient Understood Notice: Yes Recipient Signature: Yes Med Rec Note Co-signed by Attending: Coverage Notice Comment: IMM explained, signed, given, copy placed in MR Reviewer: [id number] Anabel Woodruff Notice Issued Date-Time: 10/17/2019 15:41 Notice Type: Patient Choice Letter Notice Delivered To: Family Member Relationship to Patient: Spouse Manager Creative Name: Delivery Method: HAND - Hand Delivered Rosi Days: Prior Verbal Notification: Recipient Understood Notice: Yes Recipient Signature: Yes Med Rec Note Co-signed by Attending: Coverage Notice Comment: [facility] for [facility] or [facility] Last DP export: 10/17/19 8:57 a Patient Name: ANNETTE GARAY Page [id number] at 1544 All edits/amendments must be made on the electronic document DICTATION DATE: 10/17/19 154 BABY ATTENDANT: VALDEZ 10/17/19 1544 RPT#: [id number] DC DATE: STATUS: ADM IN [facility] [address] [place] [address] END OF REPORT
--- NOTE | 2019-10-17 15:57 | NUR ---
I have reviewed this patient and I concur with the Shift Assessment completed by the Licensed Practical Nurse today this shift.
--- NOTE | 2019-10-17 15:58 | NUR ---
I have reviewed this patient and I concur with the Shift Assessment completed by the Licensed Practical Nurse today this shift.
[2019-10-17 16:14] VITALS: BP 127/86
--- NOTE | 2019-10-17 16:21 | MORECARE ---
CASE MANAGEMENT DISCHARGE SUMMARY PATIENT: ANNETTE GARAY UNIT: [id number] ADM DATE: 10/07/19 AGE: 59 : 56 SEX: M ROOM/BED: D.2224 AUTHOR: CRISTOFER,DOC PHYSICIAN: REFERRING PHYSICIAN: JOSE ROSA MD DATE OF SERVICE: 10/17/19 Discharge Plan Patient Name: ANNETTE GARAY Facility: [facility]:[place] : 1960 Planned Disposition: Home Anticipated Discharge Date: Discharge Date: Expected LOS: Initial Reviewer: [email or web address] Initial Review Date: 10/07/2019 Generated: 10/17/19 5:20 pm Comments DCP- Discharge Planning Updated by [id number]: Cintia Woodruff on 10/17/19 3:[address] [facility] is supplying DME, the family has come in and paid for the copay. I notified Terrence with [facility]. Home today with [facility]. DCP- Discharge Planning Updated by [id number]: Cintia Woodruff on 10/17/19 2:[address] [facility] is not going to be able to deliver bed without the 55 dollar copay. [facility]'s [facility]. [facility] and can deliver the bed today, with the [facility]. I spoke with Bobbi at [facility] and they will see patient on . CM will continue to follow and assist with discharge planning/needs. DCP- Discharge Planning Updated by [id number]: Kandy Basurto on 10/08/19 3:[address] Patient Name: ANNETTE GARAY Admission Status: ER Accout number: [id number] Admission Date: 10-07-2019 : 1960 Admission Diagnosis: Attending: JOSE ROAS Current LOS: 1 Anticipated DC Date: Planned Disposition: Home Primary Insurance: [facility] MEDICARE SOLUTIONS Discharge Planning Comments: CM met with patient at bedside after explaining CM role and obtaining verbal consent. Patient lives at home with his brother since he was last admitted. He is independent with his care and plans to return there upon discharge. Patient feels this would be a safe discharge. CM discussed availability / needs of home health and medical equipment. Patient's sister and discussed DME needs for a hospital bed, shower chair to slide over tub, and a bedside commode. Family believes patient will need Home Health upon discharge or possibly Hospice. CORIN signed for no preference on Home health and DME company. Patient states he will have his family drive him home upon discharge. CM will continue to follow and assist as needed with discharge planning / needs. Roof Assembler: Kandy Basurto DCPIA - Discharge Planning Initial Assessment Updated by [id number]: Kandy Basurto on 10/08/19 2:10 pm * Is the patient Alert and Oriented? Yes * How many steps to enter\exit or inside your home? 3-4 * PCP PEPITO * Pharmacy [facility] * Preadmission Environment Home with Family * ADLs Independent * Equipment None * List name and contact numbers for known caregivers / representatives who currently or will assist patient after discharge: VANCE Little SISTER - [phone] IGNACIO Little DAUGHTER - [phone] * Verbal permission to speak to the caregivers and representatives has been obtained from the patient. Yes * Community resources currently utilized None * Additional services required to return to the preadmission environment? No * Can the patient safely return to the preadmission environment? Yes * Has this patient been hospitalized within the prior 30 days at any hospital? Yes Coverage Notice Reviewer: [id number] - Kandy Basurto Notice Issued Date-Time: 10/08/2019 16:44 Notice Type: Patient Choice Letter Notice Delivered To: Family Member Relationship to Patient: Spouse Knobber Name: Delivery Method: HAND - Hand Delivered Rosi Days: Prior Verbal Notification: Recipient Understood Notice: Yes Recipient Signature: Yes Med Rec Note Co-signed by Attending: Coverage Notice Comment: no preference on Home health or DME company Reviewer: [id number] Anabel Woodruff Notice Issued Date-Time: 10/17/2019 14:50 Notice Type: IM Discharge Notice Notice Delivered To: Family Member Relationship to Patient: Spouse Knobber Name: Delivery Method: HAND - Hand Delivered Rosi Days: Prior Verbal Notification: Recipient Understood Notice: Yes Recipient Signature: Yes Med Rec Note Co-signed by Attending: Coverage Notice Comment: IMM explained, signed, given, copy placed in MR Reviewer: [id number] Anabel Woodruff Notice Issued Date-Time: 10/17/2019 15:41 Notice Type: Patient Choice Letter Notice Delivered To: Family Member Relationship to Patient: Spouse Knobber Name: Delivery Method: HAND - Hand Delivered Rosi Days: Prior Verbal Notification: Recipient Understood Notice: Yes Recipient Signature: Yes Med Rec Note Co-signed by Attending: Coverage Notice Comment: [facility] for [facility] or [facility] Last DP export: 10/17/19 2:44 p Patient Name: ANNETTE GARAY Page [phone] at 1621 All edits/amendments must be made on the electronic document DICTATION DATE: 10/17/19 162 [employer] CONSULTING ARCHITECT: VALDEZ 10/17/19 1620 RPT#: [id number] DC DATE: STATUS: ADM IN [facility] [address] [place] [address] END OF REPORT
--- NOTE | 2019-10-17 17:02 | NUR ---
OT NOTE: PT COMPLETED SUPINE TO SIT WITH SPV..PT COMPLETED SIT TO STAND WITH SBA. PT COMPLETED ADL MOB WITH SBA/CGA. PT COMPLETED FACIAL HYGIENE WITH SET UP. [phone] THANK YOU,ALIZE NGUYEN
--- NOTE | 2019-10-18 15:17 | MORECARE ---
CASE MANAGEMENT DISCHARGE SUMMARY PATIENT: ANNETTE GARAY UNIT: [id number] ADM DATE: 10/07/19 AGE: 59 : 56 SEX: M ROOM/BED: D.2224 AUTHOR: HANY C[place] PHYSICIAN: REFERRING PHYSICIAN: JOSE ROSA MD DATE OF SERVICE: 10/18/19 Discharge Plan Patient Name: ANNETTE GARAY Facility: [facility]:[place] : 1960 Planned Disposition: Home Anticipated Discharge Date: Discharge Date: 10/17/2019 Expected LOS: 0 Initial Reviewer: [email or web address] Initial Review Date: 10/07/2019 Generated: 10/18/19 4:17 pm Comments DCP- Discharge Planning Updated by [id number]: Cintia Woodruff on 10/17/19 3:[address] [facility] is supplying DME, the family has come in and paid for the copay. I notified Terrence with [facility]. Home today with [facility]. DCP- Discharge Planning Updated by [id number]: Cintia Woodruff on 10/17/19 2:[address] [facility] is not going to be able to deliver bed without the 55 dollar copay. Patient's states to see if [facility] can deliver. I called [facility] and they do have a hospital bed and can deliver the bed today, with the [facility]. I spoke with Bobbi at [facility] and they will see patient on . CM will continue to follow and assist with discharge planning/needs. DCP- Discharge Planning Updated by [id number]: Kandy Basurto on 10/08/19 3:[address] Patient Name: ANNETTE GARAY Admission Status: ER Accout number: [id number] Admission Date: 10-07-2019 : 1960 Admission Diagnosis: Attending: JOSE ROSA Current LOS: 1 Anticipated DC Date: Planned Disposition: Home Primary Insurance: [facility] MEDICARE SOLUTIONS Discharge Planning Comments: CM met with patient at bedside after explaining CM role and obtaining verbal consent. Patient lives at home with his brother since he was last admitted. He is independent with his care and plans to return there upon discharge. Patient feels this would be a safe discharge. CM discussed availability / needs of home health and medical equipment. Patient's sister and discussed DME needs for a hospital bed, shower chair to slide over tub, and a bedside commode. Family believes patient will need Home Health upon discharge or possibly Hospice. CORIN signed for no preference on Home health and DME company. Patient states he will have his family drive him home upon discharge. CM will continue to follow and assist as needed with discharge planning / needs. Mat Repairer: Kandy Basurto DCPIA - Discharge Planning Initial Assessment Updated by [id number]: Kandy Basurto on 10/08/19 2:10 pm * Is the patient Alert and Oriented? Yes * How many steps to enter\exit or inside your home? 3-4 * PCP PEPITO * Pharmacy [facility] * Preadmission Environment Home with Family * ADLs Independent * Equipment None * List name and contact numbers for known caregivers / representatives who currently or will assist patient after discharge: VANCE SAUCEDA - SISTER - [phone] IGNACIO Little DAUGHTER - [phone] * Verbal permission to speak to the caregivers and representatives has been obtained from the patient. Yes * Community resources currently utilized None * Additional services required to return to the preadmission environment? No * Can the patient safely return to the preadmission environment? Yes * Has this patient been hospitalized within the prior 30 days at any hospital? Yes Coverage Notice Reviewer: [id number] Anabel Basurto Notice Issued Date-Time: 10/08/2019 16:44 Notice Type: Patient Choice Letter Notice Delivered To: Family Member Relationship to Patient: Spouse Holistic Health Practitioner Name: Delivery Method: HAND - Hand Delivered Rosi Days: Prior Verbal Notification: Recipient Understood Notice: Yes Recipient Signature: Yes Med Rec Note Co-signed by Attending: Coverage Notice Comment: no preference on Home health or DME company Reviewer: [id number] Anabel Woodruff Notice Issued Date-Time: 10/17/2019 14:50 Notice Type: IM Discharge Notice Notice Delivered To: Family Member Relationship to Patient: Spouse Holistic Health Practitioner Name: Delivery Method: HAND - Hand Delivered Rosi Days: Prior Verbal Notification: Recipient Understood Notice: Yes Recipient Signature: Yes Med Rec Note Co-signed by Attending: Coverage Notice Comment: IMM explained, signed, given, copy placed in MR Reviewer: [id number] Anabel Woodruff Notice Issued Date-Time: 10/17/2019 15:41 Notice Type: Patient Choice Letter Notice Delivered To: Family Member Relationship to Patient: Spouse Holistic Health Practitioner Name: Delivery Method: HAND - Hand Delivered Rosi Days: Prior Verbal Notification: Recipient Understood Notice: Yes Recipient Signature: Yes Med Rec Note Co-signed by Attending: Coverage Notice Comment: [facility] for [facility] or [facility] Nicole DP export: 10/17/19 3:21 p Patient Name: ANNETTE GARAY Page [id number] at 1517 All edits/amendments must be made on the electronic document DICTATION DATE: 10/18/191516 PREP PERSON: VALDEZ 10/18/19 1517 RPT#: [id number] DC DATE:10/17/19 STATUS: DIS IN [facility] [address] [place] [address] END OF REPORT
== END 2019-10-17 17:01 | disposition home health service (06) | DRG 637 ==
LOC: D.ER 16:17 → D.CVICU 18:31 → D.ER 19:53 → D.MS 10-14 15:26
PROVIDERS: Emergency Medicine; Family Medicine; Internal Medicine Hematology & Oncology; Internal Medicine Pulmonary Disease; ADMIT Internal Medicine Nephrology; ATTEND Internal Medicine Nephrology
DX: E11.10 Type 2 diabetes mellitus with ketoacidosis without coma (principal); E43 Unspecified severe protein-calorie malnutrition; C25.9 Malignant neoplasm of pancreas, unspecified; C78.7 Secondary malignant neoplasm of liver and intrahepatic bile duct; N17.9 Acute kidney failure, unspecified; F41.8 Other specified anxiety disorders; M19.90 Unspecified osteoarthritis, unspecified site; D64.9 Anemia, unspecified; F12.90 Cannabis use, unspecified, uncomplicated; E87.6 Hypokalemia; E86.0 Dehydration; G62.9 Polyneuropathy, unspecified; G89.29 Other chronic pain; K21.9 Gastro-esophageal reflux disease without esophagitis; T50.905A Adverse effect of unspecified drugs, medicaments and biological substances, initial encounter; R00.0 Tachycardia, unspecified

== ENCOUNTER → 2019-11-15 10:20 | Outpatient (CLI) | payer MEDICARE ==
[2019-10-09 12:55] VITALS: BMI 27.2
--- NOTE | ~2019-11-15 | HEMODYNAMI ---
PATIENT:ANNETTE GARAY MEDICAL RECORD: [id number] : 56 [id number] ADMISSION DATE: 11/15/19 Generatedon:11/15/201911:28 Patient name: ANNETTE GARAY Patient #: [id number] SSN: : 1960 Date of study: 11/15/2019 Page: Of Hemodynamic Procedure Report Patient Data Patient Demographics Procedure consent was obtained First Name: ANNETTE Gender: Male Last Name: JARROD : 1960 Middle Initial: EVERARDO Age: 59 year(s) Patient #: [id number] Race: Unknown Additional ID: [id number] Contact details Address: [address] [place] [address] State: [place] City: [place] Zip code: [address] Past Medical History Allergies: No known allergies Admission Admission Data Admission Date: 11/15/2019 Admission Time: 10:20 Procedure Procedure Types Cath Procedure Peripheral Cath Diagnostic Procedure Fermenter Peripheral Procedures Miscellaneous Cathetergram Procedure Description Procedure Date Procedure Date: 11/15/2019 Procedure Start Time: 11:11 Procedure Staff Name Function Stan Brumfield MD Performing Physician Carlie Bliss RT Scrub Procedure Data Cath Procedure Fluoroscopy Diagnostic fluoroscopy Total fluoroscopy Time: 0 time: 0 min min Diagnostic fluoroscopy Total fluoroscopy dose: 16 dose: 16 mGy mGy Contrast Material Contrast Material Type Amount (ml) Isovue 300 20 Hemodynamics Rest Pre Cath Intra NCS Post Cath Procedure Log Time Note 10:56:05 Time tracking: Regular hours (M-F 7:00 - 5:00) 10:56:51 Patient received from Other to IR Alert and oriented. Tansferred to table in Supine position. 10:56:56 Signed procedure consent form obtained from patient. 10:57:00 Pre-procedure instructions explained to patient. 10:57:01 Pre-op teaching completed and patient verbalized understanding. 10:57:10 Patient allergic to No known allergies 10:57:28 Is the patient allergic to Iodine/contrast media? No. 10:58:07 Patient diabetic? Yes. 10:58:09 If diabetic: On Metformin? No 10:58:21 Left chest area was prepped with chlora-prep and draped in sterile fashion 10:58:24 - 11::23 Full Disclosure recording started ::24 Physician arrived 11:: --------ALL STOP TIME OUT------ : Final Timeout: patient, procedure, and site verified with staff and physician. All members of the team are in agreement. 11:11:23 Procedure started. 11:26:08 injected 20cc's contrast through port. injected 2cc's cath flow to paty k up fibrin. 11:26:21 Procedure ended.(Physican Out) 11:26:46 Fluoroscopy time 00.00 minutes. 11:26:51 Fluoroscopy dose: 16 mGy 11:26:51 Flurop Dose total: 16 11:26:57 Contrast amount:Isovue 300 20ml. 11:27:53 Patient transfered to Other with Ambulatory. Signature Audit [place] Stage Time Signature Unsigned Intra-Procedure 11/15/2019 Carlie Bliss 11:28:21 AM (R) [facility] [address] [place] [address]
[~2019-11-15 10:20] MED LIST changes: +ALBUTEROL SULF8.5 GM INH; +BASAGLAR K100 UNIT/1 SC; +CARDIZEM CD240 MG PO; +MYCOSTATIN500000 UNI SWISH/SW; +OMEPRAZOLE40 MG PO; +PHENERGAN25 M1 PO; +ZOFRAN4 MG
== END | disposition home or self-care (01) ==
LOC: D.SP 10:20
PROVIDERS: ATTEND Internal Medicine Hematology & Oncology
DX: C25.9 Malignant neoplasm of pancreas, unspecified (principal); E11.40 Type 2 diabetes mellitus with diabetic neuropathy, unspecified; E78.5 Hyperlipidemia, unspecified

== ENCOUNTER 2020-01-16 05:41 | Outpatient (CLI) | payer MEDICARE ==
[2019-10-09 12:55] VITALS: BMI 27.2
[2020-01-16 06:15] LABS: HEMATOCRIT 38.1 % (42.0-54.0); HEMOGLOBIN 12.1 g/dL (13.5-17.5); MCH 30.3 pg (26.0-34.0); MCHC 31.8 g/dL (31.0-37.0); MCV 95.3 fL (80.0-100.0); MEAN PLATELET VOLUME 10.7 fL (7.4-10.4); RDW 17.2 % (11.5-14.5)
[2020-01-16 06:25] LABS: PLATELET COUNT 180 10x3/uL (130-400)
[2020-01-16 06:31] LABS: WBC 0.5 10x3/uL (4.8-10.8)
[2020-01-16 06:45] LABS: ALBUMIN 2.3 g/dL (3.4-5.0); ALKALINE PHOSPHATASE 360 U/L (30-120); ALT (SGPT) 38 U/L (10-68); BILIRUBIN - TOTAL 1.15 mg/dL (0.2-1.3); CALC OSMOLALITY 272 mosm/kg (275-300); CALCIUM 8.2 mg/dL (8.5-10.1); CARBON DIOXIDE 25.3 mmol/L (21.0-32.0); CHLORIDE - SERUM 103 mmol/L (98-107); GLUCOSE 129 mg/dL (74-106); PROTEIN - SERUM 6.8 g/dL (6.4-8.2); SODIUM 136 mmol/L (136-145); UREA NITROGEN 11 mg/dL (7-18); eGFR NON AFRICAN AMERICAN 81 mL/min (90-120)
--- NOTE | 2020-01-16 06:54 | NUR ---
CALLED SPECIALS NURSE TO INFORM ABOUT PT'S WBC LAB. SPOKE TO PANTERA. SHE SAID SHE WILL TELL DR. LOPEZ. WILL CONTINUE TO MONITOR.
[2020-01-16 07:05] LABS: APTT 38.4 SECONDS (22.8-39.4); INR 1.16 (0.85-1.17); PROTIME 14.8 SECONDS (11.6-15.0)
--- NOTE | 2020-01-16 09:15 | NUR ---
829-ORDERS RECD TO CX PROCEDURE DUE TO ABNORMAL LAB. D/C TO DR TEJEDA OFFICE FOR EVALUATION. PT INFORMED. WANTS TO LAY DOWN FOR A FEW MORE MINUTES, FEELING WEAK. 899-DR CROWELL WANTS PATIENT TO GO TO ER INSTEAD OF HER OFFICE. 914-D/C TO ER VIA WHEELCHAIR.
[2020-01-16 11:12] LABS: EOSINOPHILS 2 % (0-7); LYMPHOCYTES 56 % (15-50); MONOCYTES 2 % (2-11); NEUTROPHILS 40 % (40-80); PLATELET ESTIMATE NORMAL
== END 2020-01-16 09:15 | disposition home or self-care (01) ==
LOC: D.SP 05:41 → D.CT 08:00 → D.SP 09:15
PROVIDERS: Radiology Vascular & Interventional Radiology; ATTEND Internal Medicine Hematology & Oncology
DX: C25.0 Malignant neoplasm of head of pancreas (principal); E11.40 Type 2 diabetes mellitus with diabetic neuropathy, unspecified; E78.5 Hyperlipidemia, unspecified; D70.9 Neutropenia, unspecified; R42 Dizziness and giddiness; C78.7 Secondary malignant neoplasm of liver and intrahepatic bile duct; Z53.9 Procedure and treatment not carried out, unspecified reason

== ENCOUNTER 2020-01-16 09:45 | Inpatient (IN) | payer MEDICARE ==
[~2020-01-16] VITALS: Ht 172.7 cm; Wt 81.6 kg
--- NOTE | ~2020-01-16 | CN ---
PATIENT NAME:ANNETTE GARAY MEDICAL RECORD: [id number] : 56 LOCATION:D.MS Cote2235 ADMIT DATE: 01/16/20 ACCOUNT: [id number] CONSULTING PHYSICIAN: JEREMIAS BRUMFIELD MD REFERRING PHYSICIAN: MOISE YI MD DATE OF CONSULTATION: 01/19/2020 REASON FOR CONSULTATION: Rash on upper extremity. HISTORY OF PRESENT ILLNESS: This is a 59-year-old white gentleman who presented to the hospital for a round of chemotherapy. While receiving chemotherapy, was noted to have swelling with edema and redness to face, upper arms, left arm appears to be swelling to the point where he cannot close his fingers. Right arm is less swollen. There is no redness or scaling on the abdomen, lower extremities or feet, and lower extremities are not swollen. The patient states this rash has never happened to him before, it just started to come on the last few days. IMPRESSION: Autoimmune reaction, most probable lupus with family history of lupus with sister, could be dermatomyositis. PLAN: I recommend for this patient getting an JARRETT, sed rate, dermatomyositis panel and start this patient on 40 mg of prednisone p.o. for approximately 7 days. As discharge is imminent, I would not discharge this patient until redness declines or swelling improves. The patient is also to elevate left arm. TRANSINT:[id number] Voice Confirmation ID: [id number] DOCUMENT ID: [id number] JEREMIAS BRUMFIELD MD CC: [id number] DICTATION DATE: 01/19/20 1357 GLASS EDGER: 01/19/20 1434 ADM IN [facility] [address] [place] [address]
--- NOTE | ~2020-01-16 | HEMODYNAMI ---
PATIENT:ANNETTE GARAY MEDICAL RECORD: [id number] : 56 LOCATION:D.AL D.2235 ADMISSION DATE: 01/16/20 Generatedon:01/19/202015:18 Patient name: ANNETTE GARAY Patient #: [id number] SSN: : 1960 Date of study: 01/19/2020 Page: Of Hemodynamic Procedure Report Patient Data Patient Demographics Procedure consent was obtained First Name: ANNETTE Gender: Male Last Name: JARROD : 1960 Middle Initial: EVERARDO Age: 59 year(s) Patient #: [id number] Race: Unknown Additional ID: [id number] Contact details Address: [address] [place] [address] State: [place] City: [place] Zip code: [address] Past Medical History Allergies: No known allergies Admission Admission Data Admission Date: 01/16/2020 Admission Time: 11:19 Room #: D.2235 Height (in.): 68 BSA: 1.95 (m2) Height (cm.): 172.72 BMI: 27.37 (kg/m2) Weight (lbs.): 180 Weight (kg.): 81.65 Procedure Procedure Types Cath Procedure Peripheral Cath Diagnostic Procedure Steel Engraver Peripheral Procedures Biliary Percutaneous Biliary Int/Ext Drain Placement Procedure Description Procedure Date Procedure Date: 01/19/2020 Procedure Start Time: 14:36 Procedure Staff Name Function Abad Sloan MD Performing Physician Carlie Bliss RT Atomic Welder Africa Hernandez RN Nurse Alonzo Yeung RT Scrub Valdemar Maldonado Additional personnel Procedure Data Cath Procedure Fluoroscopy Diagnostic fluoroscopy Total fluoroscopy Time: 7.7 time: 7.7 min min Diagnostic fluoroscopy Total fluoroscopy dose: 164 dose: 164 mGy mGy Contrast Material Contrast Material Type Amount (ml) Isovue 300 20 Diagnostic catheters Device Type Used For End Catheter Placement Merit Impress KA 2 5Fr 40CM catheter ([id number]) Procedure Medications Medication Administration Route Dosage Lidocaine 1% added to field 20 Heparin Flush Bag added to field 3 bags (1000units/500ml NS) Hemodynamics Rest BSA: 1.95 (m2) O2 Consumption: Estimated: 195.49 (ml/min) O2 Consumption indexed : Estimated:100.25 (ml/min/m) Heart Rate: 25 (bpm) Snapshots Pre Cath Intra NCS Post Cath Vital Signs Time Heart Resp SPO2 etCO2 NIBP Rhythm Pain Sedation Rate (ipm) (%) (mmHg) (mmHg) Status Level (bpm) 14:25:50 110 17 12 130/72(74) NSR 0 (11) 10(A) , No pain 14:30:04 109 14 100 11.3 130/60(75) NSR 0 (11) 10(A) , No pain 14:35:03 109 12 95 13.5 Measuring NSR 0 (11) 10(A) , No pain 14:35:09 109 12 95 13.5 123/69(90) NSR 0 (11) 10(A) , No pain 14:39:21 108 23 90 13.5 129/66(90) NSR 0 (11) 10(A) , No pain 14:43:23 109 11 94 0 106/58(89) NSR 0 (11) 10(A) , No pain 14:47:31 108 12 94 0 120/56(81) NSR 0 (11) 10(A) , No pain 14:51:45 107 11 94 0 118/55(85) NSR 0 (11) 10(A) , No pain 14:55:59 106 11 95 0 109/53(73) NSR 0 (11) 10(A) , No pain 15:00:08 106 12 93 0 119/54(89) NSR 0 (11) 10(A) , No pain 15:04:20 105 12 95 0 119/57(88) NSR 0 (11) 10(A) , No pain 15:08:32 107 13 95 0 118/55(79) NSR 0 (11) 10(A) , No pain 15:12:44 106 11 96 0 118/57(82) NSR 0 (11) 10(A) , No pain 15:16:56 105 12 96 0 114/59(91) NSR 0 (11) 10(A) , No pain Medications Time Medication Route Dose Verified Delivered Reason Notes Effec tiveness by by 14:38:10 Lidocaine 1% added 20ml Abad Melgoza used for to vial Luther Sloan procedure field MD CARVER 14:38:38 Heparin Flush added 3 Abad Melgoza used for Bag to bags Luthercharbel Sloan procedure (1000units/500ml field MD CARVER NS) Procedure Log Time Note 14:15:45 Time tracking: Regular hours (M-F 7:00 - 5:00) 14:23:08 Patient Height : 68 inches 14:23:12 Patient Weight : 180 lbs 14:24:14 Plan of Care:Hemodynamics will remain stable., Cardiac rhythm will remain stable., Comfort level will be maintained., Respiratory function will remain adequate., Patient/ family verbilizes understanding of procedure., Procedure tolerated without complication., Recovers from procedure without complications.. 14:24:42 Patient received from Med/Surg to IR Alert and oriented. Tansferred to table in Supine position. 14:24:45 Signed procedure consent form obtained from patient. 14:24:48 ECG and BP/O2 sat monitors applied to patient. 14:24:50 Vital chart was started 14:24:51 Baseline sample Acquired. 14:24:52 Full Disclosure recording started 14:24:53 - 14:25:04 H&P Date Dictated: 01/19/2020 Within 30 days and on chart.. 14:25:06 Pre-procedure instructions explained to patient. 14:25:06 Pre-op teaching completed and patient verbalized understanding. 14:25:08 Family unavailable. 14:25:11 Patient NPO since Midnight. 14:25:46 Patient allergic to No known allergies 14:25:50 Is the patient allergic to Iodine/contrast media? No. 14:26:09 Patient diabetic? Yes. 14:26:11 If diabetic: On Metformin? No 14:26:13 - 14:26:15 ----Pre-sedation anethsthesia assessment.----see anesthesia notes for monitoring of patient during procedure 14:27:30 Fire Safety Assessment: A--An alcohol-based skin anteseptic being used preoperatively., C--Open oxygen or nitrous oxide is being used. 14:27:47 - 14:27:52 Use device set IR Diagnostic 14:27:55 Tegaderm 4 x 4 (1626W) opened to sterile field. 14:27:56 Sterile Angiographic Pack opened to sterile field. 14:27:57 Bag Decanter (2002) opened to sterile field. 14:28:03 - 14:28:45 KIT, INTRODUCER ACCUSTICK II W/C ([id number]) opened to sterile field. 14:35:37 Physician arrived 14::38 --------ALL STOP TIME OUT------ 14:35:38 Final Timeout: patient, procedure, and site verified with staff and physician. All members of the team are in agreement. 14:36:05 Procedure started. 14:36:12 Local anesthetic to Abdominal area with Lidocaine 1% by Abad Sloan MD.INITIAL ACCESS ONLY 14:38:10 Lidocaine 1% 20ml vial added to field was administered by Abad gamino MD; used for procedure; Verbal order read back and verified. 14:38:38 Heparin Flush Bag (1000units/500ml NS) 3 bags added to field was administered by Abad Sloan MD; used for procedure; Verbal order read back and verified. 14:42:04 CHIBA 20 X 15 needle opened to sterile field. 14:48:42 ROADRUNNER .035 145 glide wire (U68622) opened to sterile field. 14:51:21 A Merit Impress KA 2 5Fr 40CM catheter ([id number]) was advanced over the wire and used for . 14:56:32 SHEATH 6FR [place] (CXN132) opened to sterile field. 15:04:04 Cook BILIARY 10.2 FR drainage catheter (B17986) opened to sterile field . 15:04:17 AMPLATZ Super stiff 180cm wire ([id number]) opened to sterile field. 15:04:29 INFLATOR BasixTOUCH (WU9262) opened to sterile field. 15:05:22 Inflate balloon Inflation number: 1 A Evercross 8 x 40 x 80 ([id number]) was prepped and advanced across the Undefined1 , then inflated . 15:09:04 BAG, DRAINAGE EMPTY 600ML W/ANNE (CXO400) opened to sterile field. 15:09:22 STOPCOCK 3-Way Large Bore (H29019) opened to sterile field. 15:09:47 Procedure ended.(Physican Out) 15:10:14 Fluoroscopy time 07.70 minutes. 15:10:20 Fluoroscopy dose: 164 mGy 15:10:20 Flurop Dose total: 164 15:10:41 Contrast amount:Isovue 300 20ml. 15:15:41 Procedure and supply charges have been captured, reviewed, submitted an d are correct. 15:15:50 Report given to Med/Surg. 15:18:51 Vital chart was stopped Intervention Summary Intervention Notes Time ActionType Lesion and Equipment Used Action# Pressure Duration Attributes 15:05:22 Inflate Undefined1 Evercross 8 x 1 0 00:00 balloon 40 x 80 ([id number]) Device Usage Item Name Manufacture Quantity Catalog Hospital Part Current Minim al Lot# / Number Charge Number Stock Stock Serial# Code Tegaderm 4 x 4 3M 1 1626W [id number] [id number] [id number] 5 (1626W) Sterile Cardinal 1 [id number] 435397 036527 5 Angiographic Health Pack Bag Decanter Microtek 1 586072 74436 352379 5 (2002S) Medical Inc. KIT, [place] 1 [id number] 606185 980031 392610 5 INTRODUCER Scientific ACCUSTICK II W/C ([id number]) CHIBA 20 X 15 [employer] 1 C21017 594957 320925 5 [id number] needle ROADRUNNER [employer] 1 L01213 005646 423571 305198 5 [id number] .035 145 glide wire (V93519) Merit Impress Merit 1 [id number] 921551 896844 5 KA 2 5Fr 40CM Medical catheter (30822ZL0) SHEATH 6FR Terumo 1 FUY041 637385 017464 045967 40 [place] (GJZ345) Cook BILIARY [facility] 1 O56806 649903 926099 482679 5 [id number] 10.2 FR drainage catheter (Z79359) AMPLATZ Super [place] 1 [id number] 413934 235538 340014 5 stiff 180cm Scientific wire ([id number]) INFLATOR Merit 1 RL6282 047444 875714 560911 5 BasixTOKalibrr Medical (IV6153) Evercross 8 x Medtronic 1 [id number] 620563 826777 373970 5 40 x 80 ([id number]) BAG, DRAINAGE Merit 1 UDO791 290540 571674 583311 5 EMPTY 600ML Medical W/ANNE (HSY607) STOPCOCK 3-Way [employer] 1 Y78675 731595 4552 795906 5 Large Bore (H68456) Signature Audit [place] Stage Time Signature Unsigned Intra-Procedure 01/19/2020 Carlie Bliss 3:18:48 PM RT(R) [facility] [address] [place] [address]
--- NOTE | ~2020-01-16 | HEMODYNAMI ---
PATIENT:ANNETTE GARAY MEDICAL RECORD: [id number] : 56 [facility]ID D.[id number] ADMISSION DATE: 01/16/20 Generatedon:01/24/20209:58 Patient name: ANNETTE GARAY Patient #: [id number] SSN: : 1960 Date of study: 01/24/2020 Page: Of Hemodynamic Procedure Report Patient Data Patient Demographics Procedure consent was obtained First Name: ANNETTE Gender: Male Last Name: JARROD : 1960 [facility] Initial: EVERARDO Age: 59 year(s) Patient #: [id number] Race: Unknown Additional ID: [id number] Contact details Address: [address] [place] [address] State: [place] City: [place] Zip code: [address] Past Medical History Allergies: No known allergies Admission Admission Data Admission Date: 01/16/2020 Admission Time: 11:19 Room #: 2235 Height (in.): 68 BSA: 1.95 (m2) Height (cm.): 172.72 BMI: 27.37 (kg/m2) Weight (lbs.): 180 Weight (kg.): 81.65 Procedure Procedure Types Cath Procedure Peripheral Cath Diagnostic Procedure Biliary Procedure Description Procedure Date Procedure Date: 01/24/2020 Procedure Start Time: 8:58 Procedure Staff Name Function Abad Sloan MD Performing Physician Alonzo Yeung RT Monitor ZEN KHAN RT Scrub Latosha SOLOMON RN Nurse Yann Xiong CRNA Additional personnel Procedure Data Cath Procedure Fluoroscopy Diagnostic fluoroscopy Total fluoroscopy Time: 5.4 time: 5.4 min min Diagnostic fluoroscopy Total fluoroscopy dose: 352 dose: 352 mGy mGy Contrast Material Contrast Material Type Amount (ml) Isovue 300 50 Diagnostic catheters Device Type Used For End Catheter Placement [facility] Pigtail VESSEL SIZING 5Fr 65CM catheter ([id number]) Procedure Medications Medication Administration Route Dosage Lidocaine 1% added to field 20 unlisted medication added to field 2 bags Hemodynamics Rest BSA: 1.95 (m2) O2 Consumption: Estimated: 265.2 (ml/min) O2 Consumption indexed: Estimated:136 (ml/min/m) Pre Cath Intra NCS Post Cath Medications Time Medication Route Dose Verified Delivered Reason Notes Effectivene ss by by 9:24:04 Lidocaine added 20ml Abad Minner used for 1% to vial Luther NEHA procedure field CARVER RN 9:24:20 hepar added 2 Abad Minner used for to bags Luther NEHA procedure field CARVER plant director Log Time Note 7:39:50 Patient Height : 68 inches 7:39:50 Patient Weight : 180 lbs 8:39:25 [facility] (CV) sent for patient. Start room use. 8:39:33 Time tracking: Regular hours (M-F 7:00 - 5:00) 8:39:38 Plan of Care:Hemodynamics will remain stable., Cardiac rhythm will remain stable., Comfort level will be maintained., Respiratory function will remain adequate., Patient/ family verbilizes understanding of procedure., Procedure tolerated without complication., Recovers from procedure without complications.. 8:39:43 Patient received from Med/Surg to IR Alert and oriented. Tansferred to table in Supine position. 8:39:46 Signed procedure consent form obtained from patient. 8:39:47 Warm blankets applied, and robert hugger turned on for patient comfort. 8:39:48 Correct patient and procedure confirmed by team. 8:39:49 Full Disclosure recording started 8:39:52 ECG and BP/O2 sat monitors applied to patient. 8:39:58 H&P Date Dictated: 01/24/2020 Within 30 days and on chart.. 8:39:59 Pre-procedure instructions explained to patient. 8:40:00 Pre-op teaching completed and patient verbalized understanding. 8:40:05 8:40:27 SEE ANESTHESIA NOTE FOR PRE PROCEDURE ANESTHESIA 8:40:30 Use device set IR Diagnostic 8:40:32 Bag Decanter (2002S) opened to sterile field. 8:40:32 Sterile Angiographic Pack opened to sterile field. 8:40:32 Tegaderm 4 x 4 (1626W) opened to sterile field. 8:48:10 Family unavailable. 8:48:20 Left Abdomen was prepped with chlora-prep and draped in sterile fashion. 8:48:24 Alarms reviewed by R. N. 8:48:24 Sharps counted by scrub and verified by R.N. 8:56:31 Physician arrived 8:56:32 --------ALL STOP TIME OUT------ 8:56:32 Final Timeout: patient, procedure, and site verified with staff and physician. All members of the team are in agreement. 8:56:39 Left abdomen site verified by team. 8:56:43 Fire Safety Assessment: A--An alcohol-based skin anteseptic being used preoperatively., C--Open oxygen or nitrous oxide is being used. 8:56:54 Sedation plan: General Anesthesia Medication:General Anesthesia 8:57:03 1) 90+ Normal kidney functon but urine findings or structural abnormalities or genetic trait point to kidney disease. 8:57:48 Maximum allowable contrast dose (3.7 X eGFR X 0.75)249.75 ml. 8:58:18 PROCEDURE STARTED 8:58:27 Local anesthetic to Abdominal area with Lidocaine 1% by Abad Sloan MD.INITIAL ACCESS ONLY 8:58:33 St Bird 10FR 23CM sheath opened to sterile field. 8:58:33 VERA 180cm wire (H81285) opened to sterile field. 8:58:39 STOPCOCK 3-Way Large Bore (K49492) opened to sterile field. 8:58:39 Cook BILIARY 10.2 FR drainage catheter (I94504) opened to sterile field. 8:58:40 BAG, DRAINAGE EMPTY 600ML W/ANNE (TWP213) opened to sterile field. 8:58:50 SUTURE ETHILON 2-0 BLK MONO FS opened to sterile field. 9:02:21 BETZAIDA .035 15cm wire (P54108) opened to sterile field. 9:06:50 A [facility] Pigtail VESSEL SIZING 5Fr 65CM catheter ([id number]) was advanced over the wire and used for . 9:10:29 INFLATOR BasixTOUCH (XX3070) opened to sterile field. 9:12:03 VIABIL 10 X 6 stent ([id number]) was deployed across Undefined1 . 9:14:56 Inflate balloon Inflation number: 1 A Evercross 10 x 40 x 135 Balloon ([id number]) was prepped and advanced across the Undefined1 , then inflated to 7 LIYA for 0:05 (min:sec) . 9:24:04 Lidocaine 1% 20ml vial added to field was administered by Latosha SOLOMON RN; used for procedure; Verbal order read back and verified. 9:24:18 Procedure ended.(Physican Out) 9:24:20 hepar 2 bags added to field was administered by Latosha SOLOMON RN; used for procedure; Verbal order read back and verified. 9:24:56 Fluoroscopy time 05.40 minutes. 9:25:03 Fluoroscopy dose: 352 mGy 9:25:03 Flurop Dose total: 352 9:25:08 Contrast amount:Isovue 300 50ml. 9:25:10 Sharps counted by scrub and verified by R.N. 9:25:17 Insertion/operative site no bleeding no hematoma. 9:25:24 Post-op/insertion site Left Abdominal area dressed using a 4 x 4 and Tegaderm. 9:25:32 Post Abdominal area:stable 9:37:11 Report given to Recovery Room. 9:37:37 Patient transfered to Recovery Room with Bed. Intervention Summary Intervention Notes Time ActionType Lesion and Equipment Used Action# Pressure Duration Attributes 9:12:03 Deploy self Undefined1 VIABIL 10 X 6 1 expanding stent stent ([id number]) 9:14:56 Inflate Undefined1 Evercross 10 x 1 7 00:05 balloon 40 x 135 Balloon ([id number]) Device Usage Item Name Manufacture Quantity Catalog Number Hospital Part Current M inimal Lot# / Charge Number Stock Stock Serial# Code Bag Decanter Microtek 1 [id number] 26106 234626 5 () Medical Inc. Sterile Cardinal 1 [id number] 262235 816944 5 Angiographic Health Pack Tegaderm 4 x 4 3M 1 1626W 389537 828659 173736 5 (1626W) St Bird 10FR St Bird 1 546102 569771 415831 5 23CM sheath VERA 180cm [facility] 1 H40319 716527 286256 5 wire (O06228) STOPCOCK 3-Way [facility] 1 O09992 700803 1390 434927 5 [id number] Large Bore (X81358) Cook BILIARY [facility] 1 S47801 427368 185371 826606 5 [id number] 10.2 FR drainage catheter (H37729) BAG, DRAINAGE Merit 1 URO382 449666 254285 393591 5 EMPTY 600ML Medical W/ANNE (ESZ204) SUTURE ETHILON [employer]icon 1 664H 918048 838596 5 2-0 BLK MONO FS BETZAIDA .035 15cm [facility] 1 L18810 565605 698026 5 [id number] wire (Q03410) Merit UHF Merit 1 [id number] 177536 001412 5 Pigtail VESSEL Medical SIZING 5Fr 65CM catheter (227410X00) INFLATOR Merit 1 UV9616 906108 229388 311080 5 [employer] (CN5139) VIABIL 10 X 6 [place] 1 [id number] 941547 226751 5 [id number] stent ([id number]) Evercross 10 x Medtronic 1 [id number] 260230 425484 331548 5 40 x 135 Balloon ([id number]) Signature Audit [place] Stage Time Signature Unsigned Intra-Procedure 01/24/2020 Alonzo 9:58:13 [facility] [address] [place] [address]
[2020-01-16 10:59] LABS: BASOPHILS 0 % (0-2); EOSINOPHILS 0 % (0-7); HEMATOCRIT 32.5 % (42.0-54.0); HEMOGLOBIN 10.5 g/dL (13.5-17.5); MCH 30.4 pg (26.0-34.0); MCHC 32.3 g/dL (31.0-37.0); MCV 94.2 fL (80.0-100.0); MEAN PLATELET VOLUME 10.9 fL (7.4-10.4); PLATELET COUNT 148 10x3/uL (130-400); RBC 3.45 10x6/uL (4.20-6.10); RDW 17.2 % (11.5-14.5)
[2020-01-16 11:02] LABS: CALC OSMOLALITY 271 mosm/kg (275-300); CALCIUM 7.7 mg/dL (8.5-10.1); CARBON DIOXIDE 24.1 mmol/L (21.0-32.0); CHLORIDE - SERUM 105 mmol/L (98-107); GLUCOSE 121 mg/dL (74-106); POTASSIUM - SERUM 3.8 mmol/L (3.5-5.1); SODIUM 136 mmol/L (136-145); UREA NITROGEN 11 mg/dL (7-18)
[2020-01-16 11:03] LABS: CREATININE - SERUM 0.7 mg/dL (0.6-1.3); WBC 0.5 10x3/uL (4.8-10.8); eGFR NON AFRICAN AMERICAN > 90 mL/min (90-120)
[2020-01-16 11:07] LABS: APTT 36.1 SECONDS (22.8-39.4); INR 1.26 (0.85-1.17); PROTIME 15.7 SECONDS (11.6-15.0)
[2020-01-16 11:26] LABS: ALBUMIN 1.9 g/dL (3.4-5.0); ALKALINE PHOSPHATASE 293 U/L (30-120); BILIRUBIN - TOTAL 0.94 mg/dL (0.2-1.3); CKMB 0.4 U/L (0.0-3.6); CREATINE KINASE 33 UL (21-232); PROTEIN - SERUM 5.8 g/dL (6.4-8.2); TROPONIN-I < 0.017 ng/mL (0.000-0.060)
[2020-01-16 11:27] LABS: ALT (SGPT) 27 U/L (10-68)
[2020-01-16 15:10] VITALS: BP 112/74; BMI 27.4
[2020-01-16 17:47] VITALS: BP 118/81
[2020-01-16 20:00] VITALS: BP 115/76
--- NOTE | 2020-01-16 20:15 | NUR ---
LYING IN BED. ALERT AND ORIENTED X4. GEN WEAKNESS NOTED. ABD DISTENDED. INSTRUCTED OF NPO AFTER MIDNIGHT FOR PROCEDURE IN AM AND HE VERBALIZED UNDERSTANDING. NS @ 125 ML/HR INFUSING IN LT CW INFUSAPORT WITH MORPHINE ACID DIPPER. RATES PAIN IN RIBS 8. EDEMA NOTED TO BLE. RED RASH NOTED TO ENTIRE BODY. SCDS IN USE BILAT. REVERSE ISO IN USE FOR NEUTROPENIA. BED ALARM IN USE. CL IN REACH. NO DISTRESS. DENIES NEEDS.
--- NOTE | 2020-01-17 01:48 | NUR ---
HAS RESTED WELL SO FAR THIS SHIFT. UP TO BR TO VOID ONCE. CL IN REACH. NO DISTRESS. LYING IN BED.
[2020-01-17 04:00] VITALS: BP 109/68
--- NOTE | 2020-01-17 05:50 | NUR ---
BLOOD DRAWN FROM INFUSPORT AND SENT TO LAB
[2020-01-17 07:36] LABS: INR 1.36 (0.85-1.17); PROTIME 16.7 SECONDS (11.6-15.0)
[2020-01-17 07:39] LABS: APTT 48.5 SECONDS (22.8-39.4)
[2020-01-17 07:49] LABS: ALBUMIN 1.7 g/dL (3.4-5.0); ALKALINE PHOSPHATASE 348 U/L (30-120); ALT (SGPT) 28 U/L (10-68); BILIRUBIN - TOTAL 1.82 mg/dL (0.2-1.3); CALCIUM 7.2 mg/dL (8.5-10.1); CARBON DIOXIDE 23.3 mmol/L (21.0-32.0); CHLORIDE - SERUM 106 mmol/L (98-107); CREATININE - SERUM 0.7 mg/dL (0.6-1.3); POTASSIUM - SERUM 3.9 mmol/L (3.5-5.1); PROTEIN - SERUM 4.6 g/dL (6.4-8.2); SODIUM 137 mmol/L (136-145); eGFR NON AFRICAN AMERICAN > 90 mL/min (90-120)
[2020-01-17 07:52] LABS: CALC OSMOLALITY 269 mosm/kg (275-300); GLUCOSE 68 mg/dL (74-106); UREA NITROGEN 8 mg/dL (7-18)
[2020-01-17 08:01] LABS: BASOPHILS 2.9 % (0-2); EOSINOPHILS 0 % (0-7); HEMATOCRIT 29.3 % (42.0-54.0); HEMOGLOBIN 9.3 g/dL (13.5-17.5); LYMPHOCYTES 38.8 % (15-50); MCH 30.2 pg (26.0-34.0); MCHC 31.7 g/dL (31.0-37.0); MCV 95.1 fL (80.0-100.0); MEAN PLATELET VOLUME 10.4 fL (7.4-10.4); MONOCYTES 16.5 % (2-11); NEUTROPHILS 41.8 % (40-80); PLATELET COUNT 150 10x3/uL (130-400); RBC 3.08 10x6/uL (4.20-6.10); RDW 17.5 % (11.5-14.5)
[2020-01-17 12:00] VITALS: BP 114/71
[2020-01-17 15:03] VITALS: BMI 27.3
[2020-01-17 16:00] VITALS: BP 103/69
--- NOTE | 2020-01-17 18:45 | NUR ---
PATIENT IN BED WITH IVINTACT. NO COMPLAINTS OR SIGNS OF DISTRESS. IV INTACT. CALL LIGHT WITHIN REACH.
--- NOTE | 2020-01-17 19:30 | NUR ---
SITTING UP ON SIDE OF BED TALKING ON PHONE. PRESENT. RATES PAIN IN ABD 8. MORPHINE BANKING MANAGER IN USE. NS @ 125 MLHR INFUSING IN LT CW INFUSAPORT. RESP NONLABORED. TELEMETRY SHOWS ST WITH RATE OF 117. EDEMA NOTED TO BLE. AMB WITH ASSIST. BED ALARM IN USE. CL IN REACH. ALERT AND ORIENTED X4.
--- NOTE | 2020-01-18 01:59 | NUR ---
HAS RESTED WELL SO FAR THIS SHIFT. NO DISTRESS. BED ALARM IN USE. CL IN REACH.
[2020-01-18 04:00] VITALS: BP 100/61
--- NOTE | 2020-01-18 07:44 | NUR ---
ALERT AND ORIENTED. LUNGS CLEAR BILATERALLY. HEART SOUNDS S1 AND S2 HEARD IN ALL ALEX. BOWEL SOUNDS ACTIVE X 4. ASCITES TO ABD. LEFT CHEST PORT PATENT WITHOUT REDNESS. DENIES NEEDS. BED LOW. CALL CHING AND PERSONAL ITEMS IN REACH. WILL CONTINUE TO MONITOR.
--- NOTE | 2020-01-18 08:00 | NUR ---
EDUCATION PROVIDED ON NEED FOR UA. PATIENT VERBALIZED UNDERSTANDING. CLEAN URINAL PROVIDED.
[2020-01-18 08:48] VITALS: BP 103/69
--- NOTE | 2020-01-18 09:15 | NUR ---
PATIENT VOIDED IN TOILET. STATES FORGOT WAS SUPPOSED TO USE URINAL. STATES WILL USE NEXT TIME HAS TO VOID.
[2020-01-18 09:35] LABS: CALCIUM 7.4 mg/dL (8.5-10.1); CARBON DIOXIDE 22.3 mmol/L (21.0-32.0); CHLORIDE - SERUM 105 mmol/L (98-107); CREATININE - SERUM 0.8 mg/dL (0.6-1.3); POTASSIUM - SERUM 3.4 mmol/L (3.5-5.1); SODIUM 136 mmol/L (136-145); eGFR NON AFRICAN AMERICAN > 90 mL/min (90-120)
[2020-01-18 09:36] LABS: CALC OSMOLALITY 270 mosm/kg (275-300); GLUCOSE 135 mg/dL (74-106); UREA NITROGEN 5 mg/dL (7-18)
[2020-01-18 09:50] LABS: ALBUMIN 1.6 g/dL (3.4-5.0); ALKALINE PHOSPHATASE 365 U/L (30-120); BILIRUBIN - TOTAL 1.66 mg/dL (0.2-1.3); PROTEIN - SERUM 5.2 g/dL (6.4-8.2)
[2020-01-18 09:54] LABS: ALT (SGPT) 36 U/L (10-68)
[2020-01-18 10:05] LABS: HEMATOCRIT 31.6 % (42.0-54.0); MCH 30.8 pg (26.0-34.0); MCHC 31.6 g/dL (31.0-37.0); MCV 97.2 fL (80.0-100.0); MEAN PLATELET VOLUME 11.3 fL (7.4-10.4); PLATELET COUNT 101 10x3/uL (130-400); RBC 3.25 10x6/uL (4.20-6.10); RDW 17.5 % (11.5-14.5); WBC 2.5 10x3/uL (4.8-10.8)
[2020-01-18 13:07] VITALS: BP 100/67
--- NOTE | 2020-01-18 14:35 | NUR ---
PATIENT VOIDED IN TOILET AGAIN. REMINDED THAT NEED UA. HAT PLACED IN TOILET.
--- NOTE | 2020-01-18 14:39 | NUR ---
WENT IN PATIENT'S ROOM AND URINE NOTED TO URINAL. STATES VOIDED IN URINAL AN HOUR AGO. EDUCATION PROVIDED THAT NEEDS TO NOTIFY RN SOON VOIDS. STATES WILL CALL NEXT TIME.
[2020-01-18 15:05] LABS: LYMPHOCYTES 19 % (15-50); MONOCYTES 22 % (2-11); NEUTROPHILS 38 % (40-80)
[2020-01-18 15:06] LABS: ANISOCYTOSIS OCC; PLATELET ESTIMATE DECREASED; POLYCHROMASIA OCC
--- NOTE | 2020-01-18 15:46 | NUR ---
DR CROWELL PAGED TO SEE IF OK TO TAKE OFF ISOLATION.
[2020-01-18 16:43] VITALS: BP 106/68
[2020-01-18 20:00] VITALS: BP 96/63
--- NOTE | 2020-01-18 20:00 | NUR ---
PT SITTING UP IN BED WITHOUT DISTRESS, AOX4. LEFT CHEST PORT INFUSING NS, MORPHINE UTILITY SPECIALIST FOR PAIN. PT WITH GENERALIZED REDNESS, ESPECIALLY TO BILAT ARMS. USED HYDROCORTISONE CREAM ON ARMS. PT STATES THEY FELT MUCH BETTER AFTER. LEFT ARM IS VERY SWOLLEN, PROPPED UP ON PILLOWS. INFORMED PT WE NEED UA, PT HAD USED URINAL ALREADY, STATES IT HAS BEEN SITTING THERE A WHILE. PROVIDED NEW URINAL TOLD PT TO USE IT NEXT TIME HE WENT AND CALL US WHEN FINISHED, VERBALIZED UNDERSTANDING. DENIES OTHER NEEDS AT THIS TIME. CL IN REACH, WILL CTM
--- NOTE | 2020-01-18 22:30 | NUR ---
POTASSIUM CAME BACK LOW, GAVE 40MEQ PER PROTOCOL. ASKED PT IF HE HAD USED BATHROOM, PT HAD GOTTEN UP WITH TO BATHROOM AND DID NOT USE URINAL. AGAIN TOLD PT WE NEEDED UA. VERBALIZED UNDERSTANDING. WILL CTM
[2020-01-19] VITALS (12 sets, daily range): BP systolic 95–116; BP diastolic 50–89; Ht 172.7 cm; Wt 81.6 kg
[2020-01-19 06:38] LABS: HEMATOCRIT 31.1 % (42.0-54.0); MCHC 32.2 g/dL (31.0-37.0); MCV 96.3 fL (80.0-100.0); MEAN PLATELET VOLUME 10.7 fL (7.4-10.4); RBC 3.23 10x6/uL (4.20-6.10); RDW 17.6 % (11.5-14.5)
[2020-01-19 06:51] LABS: ALBUMIN 2.3 g/dL (3.4-5.0); ALKALINE PHOSPHATASE 385 U/L (30-120); ALT (SGPT) 43 U/L (10-68); CALC OSMOLALITY 274 mosm/kg (275-300); CALCIUM 7.9 mg/dL (8.5-10.1); CARBON DIOXIDE 22.2 mmol/L (21.0-32.0); CHLORIDE - SERUM 109 mmol/L (98-107); CREATININE - SERUM 0.8 mg/dL (0.6-1.3); GLUCOSE 88 mg/dL (74-106); POTASSIUM - SERUM 3.7 mmol/L (3.5-5.1); PROTEIN - SERUM 5.3 g/dL (6.4-8.2); SODIUM 140 mmol/L (136-145); UREA NITROGEN 3 mg/dL (7-18); eGFR NON AFRICAN AMERICAN > 90 mL/min (90-120)
[2020-01-19 06:53] LABS: PLATELET COUNT 261 10x3/uL (130-400); WBC 15.2 10x3/uL (4.8-10.8)
[2020-01-19 08:59] LABS: INR 1.39 (0.85-1.17); PROTIME 16.9 SECONDS (11.6-15.0)
[2020-01-19 09:00] LABS: APTT 41.7 SECONDS (22.8-39.4)
[2020-01-19 09:09] LABS: BILIRUBIN NEGATIVE (NEGATIVE); GLUCOSE NEGATIVE (NEGATIVE); KETONE NEGATIVE (NEGATIVE); NITRITE NEGATIVE (NEGATIVE); SPECIFIC GRAVITY 1.015 (1.005-1.020)
[2020-01-19 09:26] LABS: HEMATOCRIT 30.5 % (42.0-54.0); HEMOGLOBIN 9.6 g/dL (13.5-17.5); MCHC 31.5 g/dL (31.0-37.0); MCV 95.3 fL (80.0-100.0); MEAN PLATELET VOLUME 10.3 fL (7.4-10.4); RBC 3.2 10x6/uL (4.20-6.10); RDW 17.6 % (11.5-14.5); WBC 17.8 10x3/uL (4.8-10.8)
[2020-01-19 10:18] LABS: HYPOCHROMASIA OCC; LYMPHOCYTES 24 % (15-50); MONOCYTES 13 % (2-11); NEUTROPHILS 40 % (40-80); PLATELET ESTIMATE NORMAL
--- NOTE | 2020-01-19 11:58 | NUR ---
HEPARIN STOPPED AT THIS TIME DUE TO PREPARING FOR TEST
[2020-01-19 13:28] LABS: PATH REVIEW PERIPHERAL SMEAR REVIEWED
[2020-01-19 17:27] LABS: ERYTHROCYTE SEDIMENTATION RATE 34 mm/hr (0-20)
--- NOTE | 2020-01-19 18:55 | NUR ---
160CC EMPTIED FROM BILIARY DRAIN
--- NOTE | 2020-01-19 19:30 | NUR ---
RESTING QUEITLY WITH NO COMPLAINTS VOICED. HEPARIN DRIP AT 10CC/HR/ STOPPED X 30 MIN PER HEPARIN PROTOCOL FOR APTT 112.9. RESTARTED AT 8 CC/HR. LEFT ARM IS EDEMATOUS AND RED. PORT INTACT TO LEFT CHEST WITHOUT REDNESS OR EDEMA NOTES. CL IN REACH. AT BEDSIDE.
[2020-01-20] VITALS: BP 131/57
--- NOTE | 2020-01-20 01:24 | NUR ---
I have reviewed this patient and I concur with the Shift Assessment completed by the Licensed Practical Nurse today this shift.
[2020-01-20 04:00] VITALS: BP 138/75
[2020-01-20 04:17] LABS: HEMOGLOBIN 9.6 g/dL (13.5-17.5); MCH 30.4 pg (26.0-34.0); MCV 94.9 fL (80.0-100.0); MEAN PLATELET VOLUME 10.1 fL (7.4-10.4); PLATELET COUNT 247 10x3/uL (130-400); RBC 3.16 10x6/uL (4.20-6.10); RDW 17.6 % (11.5-14.5); WBC 33.2 10x3/uL (4.8-10.8)
[2020-01-20 04:25] LABS: LYMPHOCYTES 19 % (15-50); MONOCYTES 20 % (2-11); NEUTROPHILS 37 % (40-80); PLATELET ESTIMATE NORMAL
[2020-01-20 04:27] LABS: ALBUMIN 2.5 g/dL (3.4-5.0); ALKALINE PHOSPHATASE 381 U/L (30-120); ALT (SGPT) 39 U/L (10-68); CALC OSMOLALITY 274 mosm/kg (275-300); CALCIUM 7.9 mg/dL (8.5-10.1); CARBON DIOXIDE 24.5 mmol/L (21.0-32.0); CHLORIDE - SERUM 106 mmol/L (98-107); CREATININE - SERUM 0.8 mg/dL (0.6-1.3); GLUCOSE 166 mg/dL (74-106); POTASSIUM - SERUM 3.8 mmol/L (3.5-5.1); PROTEIN - SERUM 5.5 g/dL (6.4-8.2); SODIUM 137 mmol/L (136-145); UREA NITROGEN 3 mg/dL (7-18); eGFR NON AFRICAN AMERICAN > 90 mL/min (90-120)
--- NOTE | 2020-01-20 04:42 | NUR ---
APPT 105.2. HEPARIN DRIP HELD X 3O MIN. WILL RESTART AT 6cc/hr.REDRAW IN 6 HOURS.
[2020-01-20 08:46] VITALS: BP 135/76
--- NOTE | 2020-01-20 10:30 | NUR ---
PTT RESULTS BACK AND WILL CONTINUE AT SAME RATE WITH NON S/SOF ABNORMAL BLEEDING NOTED. HANKNET RECEIVING SPNGE BATH AT THIS TIME.
[2020-01-20 11:09] LABS: ANA REFLEX - DIRECT Negative (Negative)
[2020-01-20 12:00] VITALS: BP 143/78
--- NOTE | 2020-01-20 15:36 | NUR ---
HEPARIN PLACED ON HOLD. NO S/S OF ABNORMAL BLEEDING. PATINE TSITTING UP IN CHAIR WITH NO COMPLAINTS
[2020-01-20 16:00] VITALS: BP 104/72
--- NOTE | 2020-01-20 16:06 | NUR ---
HEPARIN RESTARTED AND REDUCED TO 5OO UNITS/HOUR.NO COMPLAINTS NOTED
[2020-01-20 20:00] VITALS: BP 104/61
--- NOTE | 2020-01-20 23:21 | NUR ---
APTT 44.7. HEPARIN DRIP INCREASED 100 UNITS PER PROTOCOL.TO 6cc/hr
[2020-01-21] VITALS: BP 83/46
[2020-01-21 04:00] VITALS: BP 87/57
--- NOTE | 2020-01-21 04:00 | NUR ---
I have reviewed this patient and I concur with the Shift Assessment completed by the Licensed Practical Nurse today this shift.
[2020-01-21 06:50] LABS: HEMATOCRIT 29.7 % (42.0-54.0); HEMOGLOBIN 9.5 g/dL (13.5-17.5); MCH 30.2 pg (26.0-34.0); MCV 94.3 fL (80.0-100.0); MEAN PLATELET VOLUME 9.9 fL (7.4-10.4); PLATELET COUNT 214 10x3/uL (130-400); RBC 3.15 10x6/uL (4.20-6.10); RDW 18.1 % (11.5-14.5); WBC 35.8 10x3/uL (4.8-10.8)
[2020-01-21 06:57] LABS: ALBUMIN 2.6 g/dL (3.4-5.0); ALKALINE PHOSPHATASE 329 U/L (30-120); ALT (SGPT) 34 U/L (10-68); CALCIUM 7.9 mg/dL (8.5-10.1); CARBON DIOXIDE 25.9 mmol/L (21.0-32.0); CHLORIDE - SERUM 108 mmol/L (98-107); CREATININE - SERUM 0.8 mg/dL (0.6-1.3); GLUCOSE 162 mg/dL (74-106); PROTEIN - SERUM 5.6 g/dL (6.4-8.2); SODIUM 139 mmol/L (136-145); eGFR NON AFRICAN AMERICAN > 90 mL/min (90-120)
[2020-01-21 07:00] LABS: CALC OSMOLALITY 278 mosm/kg (275-300); UREA NITROGEN 5 mg/dL (7-18)
[2020-01-21 07:01] LABS: POTASSIUM - SERUM 3.1 mmol/L (3.5-5.1)
[2020-01-21 07:26] LABS: LYMPHOCYTES 10 % (15-50); MONOCYTES 3 % (2-11); NEUTROPHILS 68 % (40-80); PLATELET ESTIMATE NORMAL
[2020-01-21 08:00] VITALS: BP 110/73
--- NOTE | 2020-01-21 08:00 | NUR ---
ALERT AND ORIETNED WITH DECREASED EDEMA NOTED TO BUE. 2+ NOTED TO LUE AND TRACE TO RIGHT WITH RADIAL PULSES NOTED. VERBALIZED ARMS ARE FEELING BETTER WITH RASH IMPORVING WELL. HEPARIN GTT INFUSING PER PARAMETERS. STATED HAD AN BOWEL MOVEMENT THAT WAS JASSON COLOR. DENEIS ANY HEMATURIA OR OCCULT STOOL. ENCOURAGED TO USE CALL LIGHT FOR ASSSIT.
[2020-01-21 12:00] VITALS: BP 111/66
--- NOTE | 2020-01-21 12:48 | NUR ---
WILL CONTINUE CURRENT HEPARIN SETTINGS AT THIS TIME WITH NO S/S OF ABNORMAL BLEEDING
[2020-01-21 16:00] VITALS: BP 100/70
[2020-01-21 21:01] VITALS: BP 114/71
[2020-01-22 00:21] VITALS: BP 110/66
--- NOTE | 2020-01-22 06:46 | NUR ---
I have reviewed this patient and I concur with the Shift Assessment completed by the Licensed Practical Nurse today this shift.
[2020-01-22 06:47] VITALS: BP 103/68
--- NOTE | 2020-01-22 08:14 | NUR ---
HE IS TELLING ME HE FELL THIS MORNING. HIS LEFT MIDDLE FINGER IS BRUISED AND BLOODY. FROM WHAT HE DESCRIBED, IT SOUNDS LIKE HE WAS IN BED AND LEANING OVER TO GET SOMETHING AND HIT HIS CHEST ON THE CHAIR NEXT TO THE BED. AND SOME HOW ALSO HURT HIS FINGER. I PUT A BANDAID ON THIS FINGER. HE SAYS HIS CHEST HURT, A PRN FOR PAIN WAS GIVEN.
[2020-01-22 08:16] VITALS: BP 111/70
[2020-01-22 09:28] LABS: ALBUMIN 2.7 g/dL (3.4-5.0); ALKALINE PHOSPHATASE 257 U/L (30-120); ALT (SGPT) 28 U/L (10-68); BILIRUBIN - TOTAL 0.82 mg/dL (0.2-1.3); CALC OSMOLALITY 286 mosm/kg (275-300); CALCIUM 7.8 mg/dL (8.5-10.1); CARBON DIOXIDE 22.4 mmol/L (21.0-32.0); CHLORIDE - SERUM 110 mmol/L (98-107); CREATININE - SERUM 0.7 mg/dL (0.6-1.3); GLUCOSE 133 mg/dL (74-106); PROTEIN - SERUM 5.2 g/dL (6.4-8.2); SODIUM 144 mmol/L (136-145); UREA NITROGEN 7 mg/dL (7-18); eGFR NON AFRICAN AMERICAN > 90 mL/min (90-120)
[2020-01-22 09:29] LABS: BASOPHILS 0.6 % (0-2); EOSINOPHILS 0.1 % (0-7); HEMATOCRIT 28.5 % (42.0-54.0); IMMATURE GRANULOCYTES 13.4 % (0-5); LYMPHOCYTES 5.5 % (15-50); MCH 29.8 pg (26.0-34.0); MCHC 31.6 g/dL (31.0-37.0); MCV 94.4 fL (80.0-100.0); MEAN PLATELET VOLUME 9.9 fL (7.4-10.4); MONOCYTES 12.2 % (2-11); NEUTROPHILS 68.2 % (40-80); PLATELET COUNT 177 10x3/uL (130-400); RBC 3.02 10x6/uL (4.20-6.10); RDW 18.2 % (11.5-14.5); WBC 23.2 10x3/uL (4.8-10.8)
[2020-01-22 09:33] LABS: POTASSIUM - SERUM 2.8 mmol/L (3.5-5.1)
[2020-01-22 12:11] VITALS: BP 90/60
--- NOTE | 2020-01-22 14:09 | NUR ---
Nutrition follow-up: Diet: regular neutropenic precautions. PO intake ~50% of meals Labs reviewed Wt: 180# +BM Will continue to provide food choices and honor food preferences. Will offer nutritional supplements. RDN following.
--- NOTE | 2020-01-22 15:01 | MORECARE ---
CASE MANAGEMENT DISCHARGE SUMMARY PATIENT: ANNETTE GARAY UNIT: [id number] ADM DATE: 01/16/20 AGE: 59 : 56 SEX: M ROOM/BED: D.2235 AUTHOR: CRISTOFER,HANY PHYSICIAN: REFERRING PHYSICIAN: MOISE YI MD DATE OF SERVICE: 01/22/20 Discharge Plan Patient Name: ANNETTE GARAY Facility: [facility]:[place] : 1960 Planned Disposition: Home Hlth Svc w Plan Readm Anticipated Discharge Date: Discharge Date: Expected LOS: Initial Reviewer: [email or web address] Initial Review Date: 01/16/2020 Generated: 01/22/20 4:00 pm Comments DCP- Discharge Planning Updated by [email or web address]: Gita Wallace on 01/22/20 1:[address] Patient Name: ANNETTE GARAY Admission Status: ER Accout number: [id number] Admission Date: 01-16-2020 : 1960 Admission Diagnosis:WEAKNESS Attending: CLIFFORD YI Current LOS: 6 Anticipated DC Date: Planned Disposition: Home Hlth Svc w Plan Readm Primary Insurance: [facility] MEDICARE SOLUTIONS Discharge Planning Comments: CM met with patient at bedside after explaining CM role and obtaining verbal consent. CM discussed availability / needs of home health, REHAB and medical equipment. PATIENT STATES MAY RESUME [facility], HE IS STILL DECIDING. STATES HE WILL HAVE HELP AT HOME AND NOT SURE HE REALLY NEEDS IT. HE IS ON O2 HERE, WE WILL GET A WALK TEST IF NEEDED CLOSER TO DC TO ASSESS FOR O2 NEEDS. CM WILL FOLLOW AND ASSIST. Hand Molder And Caster: Gita Wallace DCPIA - Discharge Planning Initial Assessment Updated by [email or web address]: Gita Wallace on 01/22/20 2:55 pm * Is the patient Alert and Oriented? Yes * Preadmission Environment Home with Family * ADLs Independent * Other Equipment CANE, WALKER * Community resources currently utilized Home Health * Please name any agencies selected above. [facility] * Additional services required to return to the preadmission environment? No * Can the patient safely return to the preadmission environment? Yes * Has this patient been hospitalized within the prior 30 days at any hospital? No Patient Name: ANNETTE GARAY Page [phone] at 1501 All edits/amendments must be made on the electronic document DICTATION DATE: 01/22/20 150 PROFESSOR OF THEATRE: VALDEZ 01/22/20 1501 RPT#: [id number] DC DATE: STATUS: ADM IN [facility] [address] [place] [address] END OF REPORT
[2020-01-22 16:54] VITALS: BP 111/72
--- NOTE | 2020-01-22 19:05 | NUR ---
CT CALLED TO SAY THE [facility] PORT IS INFILTRATED, THEY ARE PULLING WARM CLOTHES ON THE THE SITE, LEFT CHEST. DR. CROWELL IS PRESENT. 4 ATTEMPTS TO GET AN PIV, TAKEN BACK TO HIS ROOM WITHOUT AN IV.
[2020-01-22 21:58] VITALS: BP 115/81
[2020-01-23 00:51] VITALS: BP 115/75
--- NOTE | 2020-01-23 02:37 | NUR ---
REC'D CHGE OF SHIFT.IN BED.NG TUBE RIGHT NARE.TO LOW INTERMITT. SUCTION.CLEAR THIN DRAINAGE OBSERVED IN CANISTER.ABD. DISTENDED FIRM. STATES YOU CAN TAKE THIS OUT OF MY NOSE NOW.EXPLAINED AT GREAT LENGTH PURPOSE OF NG TUBE. STATES UNDERSTANDS BUT CONTINUES TO SAY TAKE IT OUT NOW.UNABLE OBTAIN IV ACCESS X3 DIFFERENT NURSE ATTEMPTS.BILIARY DRAIN FLUSHED WITH 10CC NS. ORDERED DK BROWN FARHANA COLORED DRAINAGE OBSERVED.DENIES NAUSEA. WILL CONTINUE TO MONITOR FOR ANY CHGES AND FOLLOW CURRENT PLAN OF CARE.(0300) ENTERED ROOM FOUND NG TUBE LYING IN FLOOR.STATES. IT FELL OUT.
[2020-01-23 05:51] LABS: ALBUMIN 2.8 g/dL (3.4-5.0); ALKALINE PHOSPHATASE 248 U/L (30-120); ALT (SGPT) 30 U/L (10-68); BILIRUBIN - TOTAL 0.95 mg/dL (0.2-1.3); CALCIUM 8.1 mg/dL (8.5-10.1); CARBON DIOXIDE 26.5 mmol/L (21.0-32.0); CHLORIDE - SERUM 108 mmol/L (98-107); CREATININE - SERUM 0.8 mg/dL (0.6-1.3); MAGNESIUM - SERUM 1.6 mg/dL (1.8-2.4); PHOSPHOROUS 3.3 mg/dL (2.5-4.9); PROTEIN - SERUM 5.7 g/dL (6.4-8.2); SODIUM 143 mmol/L (136-145); UREA NITROGEN 6 mg/dL (7-18); eGFR NON AFRICAN AMERICAN > 90 mL/min (90-120)
[2020-01-23 05:55] LABS: CALC OSMOLALITY 281 mosm/kg (275-300); GLUCOSE 78 mg/dL (74-106); POTASSIUM - SERUM 3.1 mmol/L (3.5-5.1)
[2020-01-23 06:16] VITALS: BP 110/49
[2020-01-23 06:45] LABS: HEMOGLOBIN 10.4 g/dL (13.5-17.5); MCH 30.1 pg (26.0-34.0); MCHC 31.5 g/dL (31.0-37.0); MCV 95.4 fL (80.0-100.0); MEAN PLATELET VOLUME 10.1 fL (7.4-10.4); PLATELET COUNT 195 10x3/uL (130-400); RBC 3.46 10x6/uL (4.20-6.10); RDW 18.5 % (11.5-14.5); WBC 22.7 10x3/uL (4.8-10.8)
--- NOTE | 2020-01-23 07:28 | NUR ---
I have reviewed this patient and I concur with the Shift Assessment completed by the Licensed Practical Nurse today this shift.
[2020-01-23 08:45] VITALS: BP 108/71
--- NOTE | 2020-01-23 08:45 | NUR ---
0330) ENTERED PULLED NG OUT. REIENSERTED.0530) PULLED NG OUT AGAIN
--- NOTE | 2020-01-23 08:56 | NUR ---
LEFT INFUSAPORT REPLACED WITH 2O GA X 1.5 IN REES NEEDLE PER Aaliyah ALFARO RN AFTER 1 ATTEMPT. BIOPATCH AND OCCLUSIVE DRESSING IN PLACE. TOLERATED WELL AND EXCELLENT BLOOD DRAW NOTED. CALL LIGHT IN REACH
--- NOTE | 2020-01-23 09:21 | NUR ---
ADMINISTERED PRN MORPHINE FOR PAIN LEVEL 10/10 IN ABDOMEN. PRN MAGNESIUM FOR LOW MAGNESIUM PER ELECTROLYTE PROTOCOL. RESTARTED HEPARIN DRIP, WILL REASSESS AFTER REDRAW THIS AFTERNOON. IV PROTONIX GIVEN. RESTING IN SUPINE IN BED. DENIES ANY NEEDS. BED IN LOWEST POSITION, BED RAILS X2, CALL LIGHT WITHIN REACH, BED ALARM ON. WILL CONTINUE TO MONITOR.
[2020-01-23 10:15] LABS: LYMPHOCYTES 11 % (15-50); MONOCYTES 11 % (2-11); NEUTROPHILS 59 % (40-80)
[2020-01-23 10:16] LABS: HYPOCHROMASIA OCC; PLATELET ESTIMATE NORMAL
--- NOTE | 2020-01-23 11:42 | NUR ---
PT OUT OF ROOM.
--- NOTE | 2020-01-23 12:35 | NUR ---
ASSESSED BLOOD SUGAR, READING OF 71. NO INTERVENTION NEEDED. PT RESTING COMFORTABLY IN BED. DENIES ANY NEEDS. BED IN LOWEST POSITION, BED RAILS X2, CALL LIGHT WITHIN REACH. WILL CONTINUE TO MONITOR.
[2020-01-23 12:53] VITALS: BP 108/73
--- NOTE | 2020-01-23 13:48 | NUR ---
PT RESTING COMFORTABLY IN BED. GAVE PT ICE CHIPS. DENIES ANY OTHER NEEDS. WILL CONTINUE TO MONITOR.
--- NOTE | 2020-01-23 15:48 | NUR ---
ADMINISTERED PRN PAIN MEDICATION FOR ABDOMINAL PAIN, SIP OF WATER TO SWALLOW THE PILL. RESTING COMFORTABLY IN BED. DENIES ANY OTHER NEEDS. WILL CONTINUE TO MONITOR.
[2020-01-23 16:55] VITALS: BP 110/73
--- NOTE | 2020-01-23 17:12 | NUR ---
REASSESSED PT PAIN AFTER MEDICATION. ASSESSED BLOOD SUGAR, 76. NO INTERVENTION PER SLIDING SCALE. PT IS RESTING COMFORTABLY IN BED. DENIES ANY NEEDS. BED IN LOWEST POSITION, BED RAILS X2, CALL LIGHT WITHIN REACH. WILL CONTINUE TO MONITOR.
--- NOTE | 2020-01-23 18:50 | NUR ---
RECEIVED CALL FROM PHARMACY. PTT OF >200. FOLLOWED PROTOCOL AND TURNED HEPARIN DRIP OFF FOR AN HOUR. PASSED ALONG IN POLICE CAPTAIN THE PROTOCOL FOR THIS PATIENT.
--- NOTE | 2020-01-23 18:53 | NUR ---
ADMINISTERED K-DUR 40 MEQ FOR LOW POTASSIUM, NO DIFFICULTIES. RESTING IN BED, BREATHING EVEN AND UNLABORED. NO S/S OF DISTRESS NOTED AT THIS TIME. DENIES ANY NEEDS. WILL CONTINUE TO MONITOR.
--- NOTE | 2020-01-23 19:30 | NUR ---
PT SITTING UP IN BED VISITING WITH HIS . 200ML OF GREEN DRAINAGE EMPTIED FROM BILIARY BAG. 200ML OF YELLOW URINE EMPTIED FROM URINAL. VALENTIN ALARM ON AND BED LOW FOR SAFETY. PT DENIES PAIN OR NEEDS AT THIS TIME.
--- NOTE | 2020-01-23 20:00 | NUR ---
HEPARIN DRIP PAUSED FOR 1 HOUR FOR PTT >200 BY DAYSHIFT NURSE. RESUMED AT 500UNITS/HOUR.
[2020-01-23 20:58] VITALS: BP 114/73
[2020-01-24] VITALS (11 sets, daily range): BP systolic 99–133; BP diastolic 57–83
[2020-01-24 03:54] LABS: BASOPHILS 0.4 % (0-2); EOSINOPHILS 0.2 % (0-7); HEMATOCRIT 27.4 % (42.0-54.0); HEMOGLOBIN 8.8 g/dL (13.5-17.5); IMMATURE GRANULOCYTES 10.2 % (0-5); LYMPHOCYTES 7.2 % (15-50); MCH 30.2 pg (26.0-34.0); MCHC 32.1 g/dL (31.0-37.0); MCV 94.2 fL (80.0-100.0); MEAN PLATELET VOLUME 9.6 fL (7.4-10.4); MONOCYTES 7.4 % (2-11); NEUTROPHILS 74.6 % (40-80); RBC 2.91 10x6/uL (4.20-6.10); RDW 18.4 % (11.5-14.5)
[2020-01-24 03:59] LABS: PLATELET COUNT 153 10x3/uL (130-400); WBC 14.5 10x3/uL (4.8-10.8)
[2020-01-24 04:02] LABS: INR 2.31 (0.85-1.17)
[2020-01-24 04:04] LABS: APTT 89.7 SECONDS (22.8-39.4)
[2020-01-24 04:06] LABS: ALBUMIN 2.9 g/dL (3.4-5.0); ALKALINE PHOSPHATASE 171 U/L (30-120); ALT (SGPT) 23 U/L (10-68); BILIRUBIN - TOTAL 1.02 mg/dL (0.2-1.3); CALC OSMOLALITY 275 mosm/kg (275-300); CALCIUM 7.8 mg/dL (8.5-10.1); CARBON DIOXIDE 24.3 mmol/L (21.0-32.0); CHLORIDE - SERUM 107 mmol/L (98-107); CREATININE - SERUM 0.7 mg/dL (0.6-1.3); GLUCOSE 83 mg/dL (74-106); MAGNESIUM - SERUM 1.7 mg/dL (1.8-2.4); PHOSPHOROUS 3.8 mg/dL (2.5-4.9); POTASSIUM - SERUM 3.2 mmol/L (3.5-5.1); PROTEIN - SERUM 5.4 g/dL (6.4-8.2); SODIUM 140 mmol/L (136-145); UREA NITROGEN 7 mg/dL (7-18); eGFR NON AFRICAN AMERICAN > 90 mL/min (90-120)
--- NOTE | 2020-01-24 04:24 | NUR ---
PTT 89.7. NO CHANGES TO HEPARIN DRIP PER ORDER. HEPARIN INFUSING AT 5ML/HR.
--- NOTE | 2020-01-24 08:20 | NUR ---
TAKEN TO SURGERY PER BED, PROP AND ABT SENT WITH PT,
--- NOTE | 2020-01-24 10:10 | NUR ---
RETURNED PER BED FROM PROCEDURE, ACCEESS TO LEFT UPPER ABD COVERED WITH GAUZE AND CLEAR DSG, NO DISTRESS NOTED, VITALS WNL, RESUME HEPARIN AT PREVIOUS RATE
--- NOTE | 2020-01-24 14:12 | NUR ---
Nutrition follow-up: Pt has been NPO today for surgery PO intake of low sodium diet has been ~50% average of meals Labs reviewed Wt: 180# PO intake has been poor; pt would benefit from an appetite stimulant. RDN following.
--- NOTE | 2020-01-24 14:30 | NUR ---
FLUSHED BILI TUBE ORDERED, MARIA DOLORES WELL
--- NOTE | 2020-01-24 20:00 | NUR ---
ALERT RESTING IN BED, DENIES PAIN OR NEEDS AT THIS TIME, SEE SHIFT ASSESSMENT, CALL JOEY SILVA
[2020-01-25 04:00] VITALS: BP 147/95; BP 157/74
[2020-01-25 05:54] LABS: BASOPHILS 0.3 % (0-2); EOSINOPHILS 0.1 % (0-7); HEMOGLOBIN 9.2 g/dL (13.5-17.5); IMMATURE GRANULOCYTES 4.6 % (0-5); LYMPHOCYTES 6.5 % (15-50); MCH 29.9 pg (26.0-34.0); MCHC 31.7 g/dL (31.0-37.0); MCV 94.2 fL (80.0-100.0); MEAN PLATELET VOLUME 10.4 fL (7.4-10.4); MONOCYTES 6.5 % (2-11); PLATELET COUNT 162 10x3/uL (130-400); RBC 3.08 10x6/uL (4.20-6.10); RDW 18.5 % (11.5-14.5); WBC 11.5 10x3/uL (4.8-10.8)
[2020-01-25 08:00] VITALS: BP 120/79
[2020-01-25 09:27] LABS: ALKALINE PHOSPHATASE 146 U/L (30-120); ALT (SGPT) 22 U/L (10-68); BILIRUBIN - TOTAL 1.37 mg/dL (0.2-1.3); CALC OSMOLALITY 272 mosm/kg (275-300); CALCIUM 7.9 mg/dL (8.5-10.1); CARBON DIOXIDE 22.4 mmol/L (21.0-32.0); CHLORIDE - SERUM 105 mmol/L (98-107); CREATININE - SERUM 0.7 mg/dL (0.6-1.3); GLUCOSE 119 mg/dL (74-106); POTASSIUM - SERUM 3.6 mmol/L (3.5-5.1); PROTEIN - SERUM 5.6 g/dL (6.4-8.2); SODIUM 137 mmol/L (136-145); UREA NITROGEN 7 mg/dL (7-18); eGFR NON AFRICAN AMERICAN > 90 mL/min (90-120)
--- NOTE | 2020-01-25 10:15 | NUR ---
PT ALERT X 4. BREATH SOUNDS CLEAR BILAT. LEFT CHEST PORT ACCESSED, PATENT, DRESSING CDI. TELEMETRY IN PLACE. +3 EDEMA TO LUE, SKIN REDDENED AND FLAKY. +1 EDEMA TO BLE. PT REPORTING PAIN OF 7/10, WILL CONTINUE TO MONITOR. FAMILY AT BEDSIDE. BED LOW, CALL LIGHT IN REACH. NO OTHER NEEDS AT THIS TIME.
[2020-01-25 12:00] VITALS: BP 114/82
[2020-01-25] MEDS ORDERED: ELIQUIS5 MG PO (14:36)
[2020-01-25] MEDS ORDERED: COLACE100 MG PO (14:36)
--- NOTE | 2020-01-25 14:44 | MORECARE ---
CASE MANAGEMENT DISCHARGE SUMMARY PATIENT: ANNETTE GARAY UNIT: [id number] ADM DATE: 01/16/20 AGE: 59 : 56 SEX: M ROOM/BED: D.2235 AUTHOR: HANY [place] PHYSICIAN: REFERRING PHYSICIAN: MOISE YI MD DATE OF SERVICE: 01/25/20 Discharge Plan Patient Name: ANNETTE GARAY Facility: [facility]:[place] : 1960 Planned Disposition: Home Hlth Svc w Plan Readm Anticipated Discharge Date: Discharge Date: Expected LOS: Initial Reviewer: [email or web address] Initial Review Date: 01/16/2020 Generated: 01/25/20 3:44 pm DCP- Discharge Planning Updated by [email or web address]: Gita Wallace on 01/22/20 1:[address] Patient Name: ANNETTE GARAY Admission Status: ER Accout number: [id number] Admission Date: 01-16-2020 : 1960 Admission Diagnosis:WEAKNESS Attending: CLIFFORD YI Current LOS: 6 Anticipated DC Date: Planned Disposition: Home Hlth Svc w Plan Readm Primary Insurance: [facility] MEDICARE SOLUTIONS Discharge Planning Comments: CM met with patient at bedside after explaining CM role and obtaining verbal consent. CM discussed availability / needs of home health, REHAB and medical equipment. PATIENT STATES MAY RESUME [facility], HE IS STILL DECIDING. STATES HE WILL HAVE HELP AT HOME AND NOT SURE HE REALLY NEEDS IT. HE IS ON O2 HERE, WE WILL GET A WALK TEST IF NEEDED CLOSER TO DC TO ASSESS FOR O2 NEEDS. CM WILL FOLLOW AND ASSIST. Medical I D Sales: Gita Wallace DCPIA - Discharge Planning Initial Assessment Updated by [email or web address]: Gita Wallace on 01/22/20 2:55 pm * Is the patient Alert and Oriented? Yes * Preadmission Environment Home with Family * ADLs Independent * Other Equipment CANE, WALKER * Community resources currently utilized Home Health * Please name any agencies selected above. [facility] * Additional services required to return to the preadmission environment? No * Can the patient safely return to the preadmission environment? Yes * Has this patient been hospitalized within the prior 30 days at any hospital? No External Providers [facility] Next Contact Date: Service Request Date: Service Type: Resolution: Reviewer: Comments: Coverage Notice Reviewer: [id number] Anabel Wallace Notice Issued Date-Time: 01/25/2020 14:41 Notice Type: IM Discharge Notice Notice Delivered To: Relationship to Patient: Public Accountant Name: Delivery Method: HAND - Hand Delivered Rosi Days: Prior Verbal Notification: Recipient Understood Notice: Yes Recipient Signature: Yes Med Rec Note Co-signed by Attending: Coverage Notice Comment: Reviewer: [email or web address] Anabel Wallace Notice Issued Date-Time: 01/25/2020 14:41 Notice Type: Patient Choice Letter Notice Delivered To: Patient Relationship to Patient: Public Accountant Name: Delivery Method: HAND - Hand Delivered Rosi Days: Prior Verbal Notification: Recipient Understood Notice: Yes Recipient Signature: Yes Med Rec Note Co-signed by Attending: Coverage Notice Comment: [facility] Last DP export: 01/22/20 2:01 pm Patient Name: ANNETTE GARAY Page [phone] at 1444 All edits/amendments must be made on the electronic document DICTATION DATE: 01/25/20 1444 SUPERVISOR LEAD BURNING: VALDEZ 01/25/20 1444 RPT#: [id number] DC DATE: STATUS: ADM IN [facility] [address] [place] [address] END OF REPORT
--- NOTE | 2020-01-25 16:47 | NUR ---
DISCHARGE PAPERWORK SIGNED, ALL QUESTIONS ANSWERED. LEFT CHEST PORT DEACCESSED. ESCORTED OUT VIA WHEELCHAIR.
--- NOTE | 2020-01-26 09:00 | MORECARE ---
CASE MANAGEMENT DISCHARGE SUMMARY PATIENT: ANNETTE GARAY UNIT: [id number] ADM DATE: 01/16/20 AGE: 59 : 56 SEX: M ROOM/BED: D.2235 AUTHOR: HANY [place] PHYSICIAN: REFERRING PHYSICIAN: MOISE YI MD DATE OF SERVICE: 01/26/20 Discharge Plan Patient Name: ANNETTE GARAY Facility: [facility]:[place] : 1960 Planned Disposition: Home Hlth Svc w Plan Readm Anticipated Discharge Date: Discharge Date: 01/25/2020 Expected LOS: Initial Reviewer: [email or web address] Initial Review Date: 01/16/2020 Generated: 01/26/20 10:00 am DCP- Discharge Planning Updated by [email or web address]: Gita Wallace on 01/22/20 1:[address] Patient Name: ANNETTE GARAY Admission Status: ER Accout number: [id number] Admission Date: 01-16-2020 : 1960 Admission Diagnosis:WEAKNESS Attending: CLIFFORD YI Current LOS: 6 Anticipated DC Date: Planned Disposition: Home Hlth Svc w Plan Readm Primary Insurance: [facility] MEDICARE SOLUTIONS Discharge Planning Comments: CM met with patient at bedside after explaining CM role and obtaining verbal consent. CM discussed availability / needs of home health, REHAB and medical equipment. PATIENT STATES MAY RESUME [facility], HE IS STILL DECIDING. STATES HE WILL HAVE HELP AT HOME AND NOT SURE HE REALLY NEEDS IT. HE IS ON O2 HERE, WE WILL GET A WALK TEST IF NEEDED CLOSER TO DC TO ASSESS FOR O2 NEEDS. CM WILL FOLLOW AND ASSIST. Tattoo Artist: Gita Wallace DCPIA - Discharge Planning Initial Assessment Updated by [id number]: Gita Wallace on 01/22/20 2:55 pm * Is the patient Alert and Oriented? Yes * Preadmission Environment Home with Family * ADLs Independent * Other Equipment CANE, WALKER * Community resources currently utilized Home Health * Please name any agencies selected above. [facility] * Additional services required to return to the preadmission environment? No * Can the patient safely return to the preadmission environment? Yes * Has this patient been hospitalized within the prior 30 days at any hospital? No Coverage Notice Reviewer: [email or web address] Anabel Wallace Notice Issued Date-Time: 01/25/2020 14:41 Notice Type: IM Discharge Notice Notice Delivered To: Relationship to Patient: Human Factors Engineer Name: Delivery Method: HAND - Hand Delivered Rosi Days: Prior Verbal Notification: Recipient Understood Notice: Yes Recipient Signature: Yes Med Rec Note Co-signed by Attending: Coverage Notice Comment: Reviewer: [id number] Anabel Wallace Notice Issued Date-Time: 01/25/2020 14:41 Notice Type: Patient Choice Letter Notice Delivered To: Patient Relationship to Patient: Human Factors Engineer Name: Delivery Method: HAND - Hand Delivered Rosi Days: Prior Verbal Notification: Recipient Understood Notice: Yes Recipient Signature: Yes Med Rec Note Co-signed by Attending: Coverage Notice Comment: [facility] Last DP export: 01/25/20 1:44 pm Patient Name: ANNETTE GARAY Page [phone] at 0900 All edits/amendments must be made on the electronic document DICTATION DATE: 01/26/20 09 LAMINATION TECHNICIAN: VALDEZ 01/26/20 09 RPT#: [id number] DC DATE:01/25/20 STATUS: DIS IN [facility] [address] [place] [address] END OF REPORT
== END 2020-01-25 16:48 | disposition home health service (06) | DRG 947 ==
LOC: D.ER 09:45 → D.MS 11:19
PROVIDERS: Dermatology MOHS-Micrographic Surgery; Family Medicine; General Practice; Internal Medicine Hematology & Oncology; Radiology Diagnostic Radiology; Specialist; ADMIT Emergency Medicine; ATTEND Emergency Medicine
PROC: 0F9930Z Drainage of Common Bile Duct with Drainage Device, Percutaneous Approach (ICD-10-PCS; 2020-01-19)
PROC: BF181ZZ Fluoroscopy of Pancreatic Ducts using Low Osmolar Contrast (ICD-10-PCS; principal; 2020-01-19 14:00)
PROC: 0F793DZ Dilation of Common Bile Duct with Intraluminal Device, Percutaneous Approach (ICD-10-PCS; 2020-01-24 08:41)
DX: G89.3 Neoplasm related pain (acute) (chronic) (principal); D61.810 Antineoplastic chemotherapy induced pancytopenia; C25.9 Malignant neoplasm of pancreas, unspecified; C78.7 Secondary malignant neoplasm of liver and intrahepatic bile duct; R18.8 Other ascites; J44.9 Chronic obstructive pulmonary disease, unspecified; K21.9 Gastro-esophageal reflux disease without esophagitis; F41.8 Other specified anxiety disorders; F12.10 Cannabis abuse, uncomplicated; T45.1X5A Adverse effect of antineoplastic and immunosuppressive drugs, initial encounter

== ENCOUNTER → 2020-01-30 14:29 | Outpatient (CLI) | payer MEDICARE ==
[2020-01-19 11:42] VITALS: BMI 27.3
[~2020-01-30 14:29] MED LIST changes: +COLACE100 MG PO; +ELIQUIS5 MG PO
== END | disposition home or self-care (01) ==
LOC: D.MRI 14:29
PROVIDERS: ATTEND Internal Medicine Hematology & Oncology
DX: C25.7 Malignant neoplasm of other parts of pancreas (principal); F06.8 Other specified mental disorders due to known physiological condition

== ENCOUNTER 2020-02-12 07:23 | Outpatient (CLI) | payer MEDICARE ==
--- NOTE | 2020-02-09 17:20 | NUR ---
TRIED TO SPEAK WITH AND PATIENT REGARDIN. TIME TO BE AT THE HOSPITAL FOR HIS PROCEDURE; 2. IF HE WAS ON BLOOD THINNERS; 3. NPO STATUS; AND 4. SHIRRING TENDER. THE STATED SHE HAD JUST WOKEN UP AND HUNG UP THE PHONE BEFORE I COULD FINISH SPEAKING WITH EITHER OF THEM.
[~2020-02-12] VITALS: Ht 172.7 cm; Wt 72.7 kg
--- NOTE | ~2020-02-12 | HEMODYNAMI ---
PATIENT:ANNETTE GARAY MEDICAL RECORD: [id number] : 56 LOCATION:[facility] ADMISSION DATE: 02/12/20 Generatedon:02/12/20209:46 Patient name: ANNETTE GARAY Patient #: [id number] SSN: : 1960 Date of study: 02/12/2020 Page: Of Hemodynamic Procedure Report Patient Data Patient Demographics Procedure consent was obtained First Name: ANNETTE Gender: Male Last Name: JARROD : 1960 [facility] Initial: EVERARDO Age: 60 year(s) Patient #: [id number] Race: Unknown Additional ID: [id number] Contact details [address]: [address] [place] [address] State: [place] City: [place] Zip code: [address] Past Medical History Allergies: No known allergies Admission Admission Data Admission Date: 02/12/2020 Admission Time: 7:23 Weight (lbs.): 160 Weight (kg.): 72.57 Procedure Procedure Types Cath Procedure Peripheral Cath Diagnostic Procedure Photographer Assistant Peripheral Procedures Biliary Cholangio Thru Existing Procedure Description Procedure Date Procedure Date: 02/12/2020 Procedure Start Time: 9:31 Procedure Staff Name Function Abad Sloan MD Performing Physician Carlie Bliss RT Faculty Support Coordinator Latosha SOLOMON RN Nurse Alonzo Yeung RT Scrub Procedure Data Cath Procedure Fluoroscopy Diagnostic fluoroscopy Total fluoroscopy Time: 1.1 time: 1.1 min min Diagnostic fluoroscopy Total fluoroscopy dose: 32 dose: 32 mGy mGy Contrast Material Contrast Material Type Amount (ml) Isovue 300 12 Procedure Medications Medication Administration Route Dosage Versed I.V. 1 mg Fentanyl I.V. 25 mcg Lidocaine 1% added to field 20 Heparin Flush Bag 1 bags (1000units/500ml NS) Heparin Flush Bag 1 bags (1000units/500ml NS) Fentanyl I.V. 25 mcg Versed I.V. 0.5 mg Fentanyl I.V. 25 mcg Hemodynamics Rest Heart Rate: 100 (bpm) Snapshots Pre Cath Intra NCS Post Cath Vital Signs Time Heart Resp etCO2 NIBP Rhythm Pain Status Sedation Rate (ipm) (mmHg) (mmHg) Level (bpm) 9:21:41 97 18 23.9 113/83(94) NSR 2 (11) , 9(A) Uncomfortable 9:25:43 98 18 20.9 109/79(93) NSR 2 (11) , 9(A) Uncomfortable 9:29:41 98 19 14.9 111/83(93) NSR 2 (11) , 9(A) Uncomfortable 9:33:38 99 18 3.7 108/83(94) NSR 2 (11) , 9(A) Uncomfortable 9:37:44 97 20 13.4 107/78(87) NSR 2 (11) , 10(A) Uncomfortable 9:41:42 98 13 11.9 110/82(92) NSR 0 (11) , No 10(A) pain 9:45:39 100 14 1.4 106/81(94) NSR 0 (11) , No 10(A) pain Medications Time Medication Route Dose Verified Delivered Reason Notes Effect iveness by by 9:33:13 Versed I.V. 1 mg Abad Minner for Luther NEHA sedation MD MOORE 9:33:21 Fentanyl I.V. 25 Abad Minner for mcg Luther NEHA sedation MD MOORE 9:33:32 Lidocaine 1% added 20ml Abad Minner used for to vial Luther NEHA procedure field MD MOORE 9:33:42 Heparin Flush 1 Abad Minner used for Bag bags Luther NEHA procedure (1000units/500ml MD MOORE NS) 9:33:42 Heparin Flush 1 Abad Minner used for Bag bags Luther NEHA procedure (1000units/500ml MD MOORE NS) 9:35:37 Fentanyl I.V. 25 Abad Minner for mcg Luther NEHA sedation MD MOORE 9:36:32 Versed I.V. 0.5 Abad Minner for mg Luther NEHA sedation MD MOORE 9:39:12 Fentanyl I.V. 25 Abad Minner for mcg Luther NEHA sedation MD MOOREdrawing kiln supervisor Log Time Note 9:11:04 Patient Weight : 160 lbs 9:11:34 Time tracking: Regular hours (M-F 7:00 - 5:00) 9:20:36 Patient received from Outpatients to IR Alert and oriented. Tansferred to table in Supine position. 9:20:42 Signed procedure consent form obtained from patient. 9:20:44 Correct patient and procedure confirmed by team. 9:20:44 ECG and BP/O2 sat monitors applied to patient. 9:20:45 Vital chart was started 9:20:46 Baseline sample Acquired. 9:20:51 Full Disclosure recording started 9:20:55 9:21:57 H&P Date Dictated: 02/12/2020 Within 30 days and on chart., H&P Addendum completed by physician on day of procedure. (MUST COMPLETE FOR ALL OUTPATIENTS). 9:21:59 Pre-procedure instructions explained to patient. 9:22:00 Pre-op teaching completed and patient verbalized understanding. 9:22:04 Family in waiting room. 9:22:08 Patient NPO since Midnight. 9:22:20 Patient allergic to No known allergies 9:22:26 Is patient on blood thinner?No 9:22:29 Patient diabetic? No. 9:22:30 9:22:31 ----Pre-sedation anethsthesia assessment.---- 9:22:35 Previous problem with sedation/anesthesia? No ? 9:22:39 Snore? Yes 9:22:40 Sleep apnea? Yes 9:22:42 Deviated septum? No 9:22:44 Opens mouth fully? Yes 9:22:45 Sticks out tongue? Yes 9:22:49 Airway obstruction? No ? 9:22:55 Dentures? No ? 9:23:12 Left abdomen area was prepped with chlora-prep and draped in sterile fashion 9:23:17 9::02 Physician arrived 9:26:03 --------ALL STOP TIME OUT------ 9::04 Final Timeout: patient, procedure, and site verified with staff and physician. All members of the team are in agreement. 9:26:11 Fire Safety Assessment: A--An alcohol-based skin anteseptic being used preoperatively., C--Open oxygen or nitrous oxide is being used. 9:31:24 Procedure started. 9:33:13 Versed 1 mg I.V. was administered by Latosha SOLOMON RN; for sedation; Verbal order read back and verified. 9:33:21 Fentanyl 25 mcg I.V. was administered by Latosha SOLOMON RN; for sedation; Verbal order read back and verified. 9:33:32 Lidocaine 1% 20ml vial added to field was administered by Latosha SOLOMON RN; used for procedure; Verbal order read back and verified. 9:33:42 Heparin Flush Bag (1000units/500ml NS) 1 bags was administered by Latosha SOLOMON RN; used for procedure; Verbal order read back and verified. 9:33:42 Heparin Flush Bag (1000units/500ml NS) 1 bags was administered by Latosha SOLOMON RN; used for procedure; Verbal order read back and verified. 9:35:18 BETZAIDA .035 15cm wire ([id number]) opened to sterile field. 9:35:37 Fentanyl 25 mcg I.V. was administered by Latosha SOLOMON RN; for sedation; Verbal order read back and verified. 9:35:[address] [employer] ([id number]) opened to sterile field. 9:36:32 Versed 0.5 mg I.V. was administered by Latosha SOLOMON RN; for sedation; Verbal order read back and verified. 9:39:12 Fentanyl 25 mcg I.V. was administered by Latosha SOLOMON RN; for sedation; Verbal order read back and verified. 9:42:24 drain removed 9:43:12 Procedure ended.(Physican Out) 9:44:05 Fluoroscopy time 01.10 minutes. 9:44:10 Fluoroscopy dose: 32 mGy 9:44:10 Flurop Dose total: 32 9:44:22 Contrast amount:Isovue 300 12ml. 9:44:24 Procedure and supply charges have been captured, reviewed, submitted and are correct. 9:46:11 Report given to Outpatients. 9:46:44 Vital chart was stopped Device Usage Item Manufacture Quantity Catalog Hospital Part Current Minimal Lot# / Name Number Charge Number Stock Stock Serial# Code BETZAIDA [employer] 1 [id number] .035 15cm wire ([id number]) SHEATH [facility] [employer] 1 [id number] [employer] ([id number]) Signature Audit [place] Stage Time Signature Unsigned Intra-Procedure 02/12/2020 Carlie Bliss 9:46:39 AM RT(R) [facility] [address] [place] [address]
[2020-02-12 08:16] LABS: HEMATOCRIT 36.5 % (42.0-54.0); HEMOGLOBIN 11.6 g/dL (13.5-17.5); MCH 30.4 pg (26.0-34.0); MCHC 31.8 g/dL (31.0-37.0); MCV 95.8 fL (80.0-100.0); MEAN PLATELET VOLUME 9.6 fL (7.4-10.4); NEUTROPHILS 75.4 % (40-80); RBC 3.81 10x6/uL (4.20-6.10); RDW 18.2 % (11.5-14.5); WBC 6.3 10x3/uL (4.8-10.8)
[2020-02-12 08:18] LABS: PLATELET COUNT 263 10x3/uL (130-400)
[2020-02-12 08:23] LABS: APTT 39.7 SECONDS (22.8-39.4); INR 1.27 (0.85-1.17); PROTIME 15.8 SECONDS (11.6-15.0)
[2020-02-12 08:25] LABS: CALC OSMOLALITY 281 mosm/kg (275-300); CALCIUM 8.1 mg/dL (8.5-10.1); CARBON DIOXIDE 26.9 mmol/L (21.0-32.0); CHLORIDE - SERUM 106 mmol/L (98-107); CREATININE - SERUM 0.9 mg/dL (0.6-1.3); GLUCOSE 95 mg/dL (74-106); POTASSIUM - SERUM 4.1 mmol/L (3.5-5.1); SODIUM 141 mmol/L (136-145); UREA NITROGEN 16 mg/dL (7-18); eGFR NON AFRICAN AMERICAN > 90 mL/min (90-120)
[2020-02-12 08:39] VITALS: BP 105/74; Ht 172.7 cm; Wt 72.7 kg
[2020-02-12 09:21] LABS: ALBUMIN 2.4 g/dL (3.4-5.0); ALKALINE PHOSPHATASE 260 U/L (30-120); ALT (SGPT) 27 U/L (10-68); BILIRUBIN - TOTAL 0.78 mg/dL (0.2-1.3); PROTEIN - SERUM 6.7 g/dL (6.4-8.2)
--- NOTE | 2020-02-12 10:21 | NUR ---
1000 SEE POST PROCEDURE CHECKLIST FOR VITAL SIGN TRENDS. FAMILY AT BEDSIDE.
== END 2020-02-12 13:19 | disposition home or self-care (01) ==
LOC: D.SP 07:23 → D.RAD 09:00 → D.SP 09:00
PROVIDERS: ATTEND Radiology Diagnostic Radiology
DX: C25.9 Malignant neoplasm of pancreas, unspecified (principal); K83.1 Obstruction of bile duct; E11.40 Type 2 diabetes mellitus with diabetic neuropathy, unspecified; E78.5 Hyperlipidemia, unspecified; D70.9 Neutropenia, unspecified; C25.7 Malignant neoplasm of other parts of pancreas; R42 Dizziness and giddiness; C25.0 Malignant neoplasm of head of pancreas; I95.9 Hypotension, unspecified; E86.0 Dehydration